=== PATIENT | female | born 1995 | race Caucasian/White ===

== ENCOUNTER 2016-09-18 10:35 | Inpatient (IN) | payer BC, OTHER ==
[~2016-09-18] VITALS: Ht 162.6 cm; Wt 49.9 kg
[~2016-09-18 10:35] MED LIST: BIOT25007 PO; Buspirone Hcl PO; FLUT16SP NS; HYDR50CA PO
[2016-09-20 14:00] VITALS: BP 100/52
[2016-09-20] MEDS ORDERED: ONDANSETRON 4 MG/2 ML VIAL IM PRN (14:00)
[2016-09-20] MEDS ORDERED: ACETAMINOPHEN 325 MG TABLET PO PRN (14:00)
[2016-09-20] MEDS ORDERED: IBUPROFEN 600 MG TABLET PO PRN (14:00)
[2016-09-20] MEDS ORDERED: MAG HYDROX/AL HYDROX/SIMETH 30 ML LIQUID UDC PO PRN (14:00)
[2016-09-20] MEDS ORDERED: BUPRENORPHINE HCL 2 MG TAB.SUBL SL PRN (14:00)
[2016-09-20] MEDS ORDERED: MIRALAX 17 GM POWD.PACK PO PRN (14:00)
[2016-09-20] MEDS ORDERED: LOPERAMIDE HCL 2 MG CAPSULE PO PRN ×2 (14:00)
[2016-09-20] MEDS ORDERED: diphenhydrAMINE 50 MG CAPSULE PO PRN (14:00)
[2016-09-20] MEDS ORDERED: MAGNESIUM HYDROXIDE 30 ML LIQUID UDC PO PRN (14:00)
[2016-09-20 14:56] LABS: *URINE HCG, QUAL NEGATIVE (NEGATIVE)
[2016-09-20 15:14] LABS: *AMPHETAMINE, URINE POSITIVE (NEGATIVE); *BARBITURATE, URINE NEGATIVE (NEGATIVE); *CANNABINOID, URINE NEGATIVE (NEGATIVE); *COCCAINE, URINE NEGATIVE (NEGATIVE); *OPIATE, URINE POSITIVE (NEGATIVE); *PHENCYCLIDINE SCREEN,URINE NEGATIVE (NEGATIVE)
--- NOTE | 2016-09-20 15:30 | NUR ---
Pt c/o body aches and withdrawal symptoms. Clonidine 0.1 mg po prn and Robaxin 750mg po prn given
[2016-09-20] MEDS: CLONIDINE HCL 0.1 MG TABLET PO PRN ×2 (15:33→23:48)
[2016-09-20] MEDS: METHOCARBAMOL 750 MG TABLET PO PRN ×2 (15:33→22:46)
--- NOTE | 2016-09-20 16:15 | NUR ---
ADMISSION NOTE: 21 yo female admitted with opiate and methamphetamine dependence. Pt is allergic to Tramadol. VS B/P 100/52 P 90 T 98.2 RR 16 Pulse OX 97% Initial COWS 5. Pt c/o body aches and anxiety. Pt is 5 ft 4inches and weighs 110 pounds. Skin is intact; however, healed scars noted on LFA and L buttock. Pt states had a seizure 5 weeks ago "which was random." Denies Benzo or ETOH abuse. Pt is alert and oriented X4. Color good, skin warm and dry. Respirations even and unlabored. Pt denies SI/HI. Pt has no home medications. Pt has a medical history of anxiety, depression and PTSD. Pt denies PCP. Dr. Orlando evaluated patient and placed on a 5 day Subutex taper to start at 1700. Substance use history: Heroin: 2-3 gms/day IV or smoked X 6 months. Last use 4gms 09-19-16 Meth: 1-2g/day smoked for 1 month. Last use today 1 gm.
--- NOTE | 2016-09-20 16:30 | NUR ---
Pt states feels improved after Clonidine and Robaxin prn. Muscle aches improved.
[2016-09-20] MEDS: BUPRENORPHINE HCL 2 MG TAB.SUBL SL SCH ×2 (16:46→21:15)
[2016-09-20] MEDS ORDERED: LORAZEPAM 2 MG/1 ML VIAL IM PRN (17:00)
[2016-09-20 17:39] VITALS: BP 110/60
[2016-09-20] MEDS ORDERED: TRAZODONE 50 MG TABLET PO PRN (18:15)
[2016-09-20] MEDS: busPIRone 10 MG TABLET PO SCH (18:27)
--- NOTE | 2016-09-20 18:51 | NUR ---
END OF SHIFT NOTE: Report given to industrial fabric cutter nurse. 21 yo female admitted with opiate and methamphetamine dependence. Placed on a 5 day Subutex taper. Pt states had a seizure 5 weeks ago "which was random." Denies Benzo or ETOH abuse. Pt is alert and oriented X4. Color good, skin warm and dry. Respirations even and unlabored. Vital signs have remained stable throughout shift. Last COWS 8 @ 1700. Clonidine 0.1 mg po prn and Robaxin 750mg po prn given @ 1530. Fall and seizure precautions observed. Call light within reach.
[2016-09-20 20:00] VITALS: BP 116/63
--- NOTE | 2016-09-20 20:00 | NUR ---
START OF SHIFT NOTE PATIENT IN HER ROOM, NOTED IRRITATED , UNABLE TO SIT STILL, AGITATED, RESTLESS, C/O ANXIETY, GENERALIZED BODY PAIN , SWEATING, NO N/V, STOMACH CRAMPS , STUFFY NOSE AND TREMORS. RELAXATION TECHNIQUE PROVIDED. REFUSED BLOOD DRAW , EXPLAINED RISKS/BENEFITS BUT STILL REFUSED. RECEIVED REPORT FROM DAY SHIFT NURSE, PATIENT IS A 21 YEAR OLD FEMALE, ADMITTED FOR HEROIN/METH DEPENDENCE. PATIENT IS ON 1ST DAY OF HER 5 DAYS SUBUTEX TAPER . PATIENT IS FULL CODE, REGULAR DIET AND ALLERGIC TO TRAMADOL. PATIENT REPORTS PMH OF ANXIETY, DEPRESSION, PTSD AND SEIZURE 5 WEEKS AGO. PATIENT WITH HEALED SCARS ON LEFT FOREARM AND LEFT BUTTOCK. PATIENT WAS GIVEN CLONIDINE AND ROBAXIN.LAST COWS 8. ON FALL/SEIZURE PRECAUTION. SAFETY MEASURES IN PLACE. CALL LIGHT IN REACH. WILL CONTINUE TO MONITOR.
[2016-09-20] MEDS ORDERED: LORAZEPAM 1 MG TABLET PO ONE (22:15)
--- NOTE | 2016-09-20 22:46 | NUR ---
ONE TIME ATIVAN/ROBAXIN ADMINISTRATION PATIENT RESTLESS, AGITATED, UNABLE TO SIT STILL, ANXIOUS, C/O OF GENERALIZED BODY ACHES /10, SWEATING AND TREMORS. ONE TIME ATIVAN/ROBAXIN GIVEN . WILL MONITOR FOR EFFECTIVENESS Addendum: 09/21/16 at 0406 by RAGINI HAWKINS LVN MOLLY 10
--- NOTE | 2016-09-20 23:46 | NUR ---
PRN ATIVAN/ROBAXIN RE-ASSESSMENT PATIENT STATES ATIVAN IS HELPFUL , STILL ANXIOUS BUT SHE FEELS MUCH BETTER. CIWA 4. ROBAXIN HELPFUL PAIN IS NOW 2/10. TOLERABLE. WILL CONTINUE TO MONITOR.
--- NOTE | 2016-09-20 23:48 | NUR ---
PRN CATAPRES AND DESYREL ADMINISTRATION PATIENT C/O ANXIETY , SWEATING AND REQUESTS FOR SLEEP AID. PRN CATAPRES AND DESYREL GIVEN. WILL CONTINUE TO MONITOR.
[2016-09-21] VITALS: BP 90/63
--- NOTE | 2016-09-21 00:48 | NUR ---
PRN CATAPRES/DESYREL RE-ASSESSMENT PATIENT IN BED WITH EYES CLOSED. RESPIRATION EVEN AND UNLABORED. NO S/S OF DISTRESS. SAFETY MEASURES IN PLACE. CALL LIGHT IN REACH. WILL CONTINUE TO MONITOR.
--- NOTE | 2016-09-21 04:00 | NUR ---
COWS /VS PATIENT REFUSED VS. UNABLE TO COMPLETE COWS ASSESSMENT . RESPIRATION EVEN AND UNLABORED. SAFETY MEASURES IN PLACE. CALL LIGHT IN REACH. WILL CONTINUE TO MONITOR.
--- NOTE | 2016-09-21 07:27 | NUR ---
Start of Shift Notes: Received patient in her room. Alert and oriented x 4. Verbally responsive. Able to make needs known. Respirations even and unlabored. No SOB noted. Skin warm and dry to touch. Abdomen soft and non-distended with (+) BS in all 4 quadrants. No complains of N/V/D or constipation noted. No complains of abdominal discomfort. Bladder non-distended. No complains of dysuria. Ambulatory ad stephen with steady gait. Voids independently. Patient is a 21 year old female admitted for opiate and methamphetamine dependence who was placed on a 5-day Subutex taper as ordered. No adverse reactions noted. Allergic to Tramadol. FULL CODE. Regular diet. On fall and seizure precautions. Has past medical hx of anxiety, depression, and PTSD. Educated patient on her current plan of care for the day and her medication regimen. Encouraged oral fluid intake and encouraged group participation to learn new skills to prevent relapse. Will continue to monitor.
--- NOTE | 2016-09-21 07:30 | NUR ---
END OF SHIFT NOTE PATIENT COMPLIANT WITH MEDICATION AND TREATMENT PLAN . PATIENT SLEPT 11 HOURS . FLUID INTAKE OF 729 ML . VOIDED X 1. NO BM . PATIENT WAS ANXIOUS AT THE BEGINNING OF SHIFT. PATIENT RESTLESS, IRRITABLE, AGITATED AND GENERALIZED BODY PAIN 5/10. ONE TIME ATIVAN WAS ORDERED BY DR. ESCOBEDO, GIVEN AT 2246 . CIWA 10. EFFECTIVE. PATIENT REQUESTS FOR SLEEP AID AT 2348 AND CATAPRES FOR ANXIETY AT 2348. EFFECTIVE. ON FALL PRECAUTION. SAFETY MEASURES IN PLACE. CALL LIGHT IN REACH. WILL CONTINUE TO MONITOR. LAST COWS 1.
[2016-09-21 08:00] VITALS: BP 101/71
[2016-09-21] MEDS ORDERED: TUBERCULIN,PURIF.PROT.DERIV. 5 TU/0.1 ML TEST ID ONE (09:00)
[2016-09-21] MEDS: BUPRENORPHINE HCL 2 MG TAB.SUBL SL SCH ×3 (09:06→20:24)
[2016-09-21] MEDS: MULTIVITAMINS,THERAPEUTIC TABLET PO SCH (09:06)
[2016-09-21] MEDS: GABAPENTIN 300 MG CAPSULE PO SCH ×2 (09:06→14:37)
[2016-09-21] MEDS: busPIRone 10 MG TABLET PO SCH ×3 (09:06→16:00)
[2016-09-21 09:34] LABS: ETHANOL < 3 MG/DL (0-0)
[2016-09-21 09:37] LABS: ALANINE AMINOTRANSFERASE 22 U/L (14-59); ALBUMIN 3.3 g/dL (3.4-5.0); ALKALINE PHOSPHATASE 53 U/L (50-136); ASPARTATE AMINOTRANSFERASE 19 U/L (15-37); BILIRUBIN,TOTAL 0.3 mg/dL (0.2-1.0); CALCIUM 8.4 mg/dL (8.5-10.1); CARBON DIOXIDE 29 mmol/L (21-32); CHLORIDE 105 mmol/L (98-107); CREATININE 0.7 mg/dL (0.6-1.3); GFR 105 mL/min (>60); GLUCOSE 100 mg/dL (74-106); MAGNESIUM 1.7 mg/dL (1.8-2.4); POTASSIUM 3.9 mmol/L (3.5-5.1); SODIUM SERUM 137 mmol/L (136-145); TOTAL PROTEIN, SERUM 6.2 g/dL (6.4-8.2); UREA NITROGEN, BLOOD 4 mg/dL (7-18)
[2016-09-21] MEDS ORDERED: TRAZODONE 50 MG TABLET PO PRN (09:45)
[2016-09-21 09:48] LABS: THYROID STIMULATING HORMONE 0.419 mIU/mL (0.358-3.740)
[2016-09-21 09:55] LABS: HIV-1 p24 ANTIGEN NON REACTIVE (NONREACTIVE); HIV-1/2 ANTIBODY NON REACTIVE (NONREACTIVE)
[2016-09-21 10:00] LABS: BASOPHILS % (AUTO) 0.6 % (0.0-2.0); EOSINOPHILS # (AUTO) 0.2 K/uL (0.0-0.7); HEMATOCRIT 39.7 % (37.0-47.0); HEMOGLOBIN 13.5 g/dL (12.0-16.0); LYMPHOCYTES # (AUTO) 2.2 K/uL (0.8-4.8); LYMPHOCYTES % (AUTO) 36.6 % (20.5-51.5); MEAN CORPUSCULAR HEMOGLOBIN 30.3 uug (27.0-31.0); MEAN CORPUSCULAR HGB CONC 34 g/dL (32.0-37.0); MEAN CORPUSCULAR VOLUME 89.5 fL (81.0-99.0); MONOCYTES # (AUTO) 0.7 K/uL (0.1-1.30); MONOCYTES % (AUTO) 11.2 % (0.0-11.0); NEUTROPHILS # (AUTO) 2.9 K/uL (1.8-8.9); NEUTROPHILS % (AUTO) 48.6 % (38.5-71.5); PLATELET COUNT (AUTO) 213 K/uL (150-450); RED BLOOD CELL COUNT(AUTO) 4.44 MIL/uL (4.20-5.40); RED CELL DISTRIBUTION WIDTH 12.4 % (11.5-14.5)
--- NOTE | 2016-09-21 10:00 | NUR ---
MD Communication: Reported to MD Orlando, patient noted with complain of dysuria. No signs of hematuria reported. New order obtained from MD for UA. Orders noted and carried out.
[2016-09-21] MEDS ORDERED: MAGNESIUM OXIDE 400 MG TABLET PO ONE (10:15)
[2016-09-21] MEDS: ONDANSETRON ODT 4 MG TAB.RAPDIS SL PRN ×2 (11:02→18:31)
[2016-09-21] MEDS: DICYCLOMINE HCL 20 MG TABLET PO PRN ×2 (11:02→20:23)
--- NOTE | 2016-09-21 11:03 | NUR ---
PRN Zofran/Immodium and Bentyl given: Patient noted with complain of nausea, abdominal cramps, and x 2 episodes of loose watery stools. Medicated patient with PRN Zofran 4 mg ODT, Imodium 4 mg and Bentyl 20 mg PO as ordered. Will monitor for effectiveness.
[2016-09-21 12:00] VITALS: BP 98/58
--- NOTE | 2016-09-21 12:02 | NUR ---
Re-assessment: Per patient, no further episodes of nausea and diarrhea noted. Mild abdominal cramps noted. PRN Bentyl, Zofran and Immodium was effective.
[2016-09-21 12:49] LABS: *BLOOD, URINE NEGATIVE (NEGATIVE); *CLARITY,URINE SLIGHTLY CLOUDY (CLEAR); *COLOR,URINE YELLOW (YELLOW); *KETONES,URINE TRACE (NEGATIVE); LEUKOCYTE ESTERASE ,URINE 1+ (NEGATIVE); NITRITE, URINE NEGATIVE (NEGATIVE); UGLUCOSE NEGATIVE (NEGATIVE)
[2016-09-21 13:09] LABS: *BILIRUBIN,URIN 1+ (NEGATIVE); *PROTEIN,URINE TRACE (NEGATIVE)
--- NOTE | 2016-09-21 13:09 | NUR ---
Critical lab: Received call from lab about patient's urine. Spoke with Kg and reported critical lab value of 1+ bilirubin in the urine. Dr. Orlando made aware.
[2016-09-21 13:10] LABS: BACTERIA,URINE FEW /HPF (NONE SEEN); SQUAMOUS EPITHELIAL CELL,UR MODERATE /HPF (NONE SEEN); WBC,URINE 20-50 /HPF (0-3)
[2016-09-21 13:11] LABS: CALCIUM OXALATE CRYSTALS,UR FEW /HPF (NONE SEEN); MUCUS,URINE MODERATE /LPF (0-FEW)
[2016-09-21 13:12] LABS: ICTOTEST POSITIVE (NEGATIVE)
[2016-09-21] MEDS: NITROFURANTOIN/NITROFURAN MAC 100 MG CAPSULE PO SCH ×2 (14:37→20:23)
[2016-09-21] MEDS: CLONIDINE HCL 0.1 MG TABLET PO PRN (14:50)
--- NOTE | 2016-09-21 14:51 | NUR ---
New orders: Patient started on Macrobid 100 mg PO q 12 hours for UTI. Patient education provided. Patient verbalized understanding.
--- NOTE | 2016-09-21 14:51 | NUR ---
Clonidine 0.1mg PO given: patient complained of chills, anxiety, hot flashes. Unable to be relieved with redirection. Medicated patient with Clonidine 0.1mg PO as ordered. Will monitor for effectiveness.
--- NOTE | 2016-09-21 15:51 | NUR ---
Re-assessment: Per patient, PRN Clonidine was effective in reducing patient's anxiety, chills, hot flashes and agitation.
[2016-09-21 16:00] VITALS: BP 95/73
--- NOTE | 2016-09-21 18:31 | NUR ---
PRN Zofran 4 mg ODT given: Patient noted with complain of nausea. No emesis noted. Patient was given Zofran 4 mg ODT as ordered. Will monitor for effectiveness.
--- NOTE | 2016-09-21 18:47 | NUR ---
End of Shift Notes: Patient is a 21 year old female admitted for opiate and methamphetamine dependence who was placed on a 5-day Subutex taper as ordered. No adverse reactions noted. Patient is tolerating taper well. Prior to admission, patient was using 2 to 3 grams of Heroin IV and methamphetamine 1-2 grams IV x 6 months. VS monitored closely q 4 hours. No significant abnormalities noted. Withdrawal symptoms were closely monitored. Patient presented with with chills, hot flashes, abdominal spasms, diarrhea, abdominal discomfort, nausea, anxiety and agitation. Initial COWS 8, Last COWS 3. Medicated patient with Zofran 4 mg, Imodium 4 mg and Bentyl 20 mg PO as ordered at 1103 with help after 1 hour. Medicated patient with Clonidine 0.1mg PO at 1450 due to anxiety, agitation and chills with help after 1 hour. Zofran 4 mg ODT given at 1830 due to nausea. Patient complained of bladder discomfort. Notified Dr. Orlando with NO for UA. Started on Macrobid as ordered. No adverse reactions noted. Mag 1.7L. Replaced with 400 mg of Max Ox as ordered. Per patient, Subutex has been helping her with er withdrawal symptoms. Compliant with care and treatment. Requires encouragement to attend group and activities. All needs met and attended. Will continue to monitor closely.
[2016-09-21 20:00] VITALS: BP 109/60
--- NOTE | 2016-09-21 20:00 | NUR ---
START OF SHIFT NOTE PATIENT IN THE ROOM.PATIENT REPORTS ANXIETY, IRRITABLE, RESTLESS, STILL C/O NAUSEA NO EMESIS, ABDOMINAL CRAMPING AND GENERALIZED BODY PAIN /10. PATIENT ALERT AND ORIENTED X 4. RESPIRATION EVEN AND UNLABORED. PATIENT IS A 21 YEAR OLD FEMALE, ADMITTED FOR HEROIN/METH DEPENDENCE. PATIENT IS FULL CODE, REGULAR DIET AND ALLERGIC TO TRAMADOL. PATIENT REPORTS PMH OF ANXIETY, DEPRESSION, PTSD AND SEIZURE 5 WEEKS AGO. PATIENT IS ON 2ND DAY OF HER 5 DAY SUBUTEX TAPER. RECEIVED REPORT FROM DAY SHIFT NURSE, PATIENT WAS GIVEN ZOFRAN, IMODIUM, BENTYL AND CLONIDINE. PATIENT HAS UTI AND ON NITROFURANTOIN ANTIBIOTIC. MAGNESIUM LEVEL 1.7- REPLACED. ON FALL/SEIZURE PRECAUTION. SAFETY MEASURES IN PLACE. CALL LIGHT IN REACH. WILL CONTINUE TO MONITOR.
[2016-09-21] MEDS: METHOCARBAMOL 750 MG TABLET PO PRN (20:23)
[2016-09-21] MEDS: HYDROXYZINE PAMOATE 25 MG CAPSULE PO PRN (20:23)
--- NOTE | 2016-09-21 20:23 | NUR ---
PRN VISTARIL/ROBAXIN /BENTYL ADMINISTRATION PATIENT ANXIOUS, C/O GENERALIZED BODY ACHES AND ABDOMINAL CRAMPING. PRN VISTARIL, ROBAXIN AND BENTYL GIVEN WILL MONITOR EFFECTIVENESS.
[2016-09-21] MEDS: TRAZODONE 100 MG TABLET PO PRN (20:49)
--- NOTE | 2016-09-21 20:49 | NUR ---
PRN DESYREL ADMINISTRATION PATIENT REQUESTS FOR SLEEP AID. PRN DESYREL GIVEN .WILL MONITOR FOR EFFECTIVENESS.
[2016-09-21] MEDS ORDERED: GABAPENTIN 300 MG CAPSULE PO SCH (21:00)
--- NOTE | 2016-09-21 21:23 | NUR ---
PRN VISTARIL/BENTYL/ROBAXIN PATIENT STATES PAIN LEVEL IS NOW 3/10, PATIENT'S ANXIETY SUBSIDED AND ABDOMINAL CRAMPING AND NAUSEA CEASED. WILL CONTINUE TO MONITOR
--- NOTE | 2016-09-21 22:23 | NUR ---
PRN DESYREL RE-ASSESSMENT PATIENT IN BED WITH EYES CLOSED, ASLEEP. RESPIRATION EVEN AND UNLABORED. SAFETY MEASURES IN PLACE CALL LIGHT IN REACH. WILL CONTINUE TO MONITOR
[2016-09-22] VITALS: BP 90/56
[2016-09-22 04:00] VITALS: BP 90/52
[2016-09-22 05:10] LABS: HCV AB 0.1 s/co ratio (0.0-0.9); HEPATITIS B CORE AB, IgM Negative (Negative); HEPATITIS B SURFACE AG Negative (Negative)
--- NOTE | 2016-09-22 06:58 | NUR ---
END OF SHIFT NOTE PATIENT REPORTS ANXIETY, IRRITABLE, RESTLESS, STILL C/O SLIGHT NAUSEA NO EMESIS, ABDOMINAL CRAMPING AND GENERALIZED BODY PAIN /10 DURING SHIFT. PATIENT ALERT AND ORIENTED X 4. RESPIRATION EVEN AND UNLABORED. PATIENT WAS GIVEN PRN VISTARIL FOR ANXIETY , ROBAXIN FOR GENERALIZED BODY ACHE 7/10, AND BENTYL FOR ABDOMINAL CRAMPING AT 2022 THEN PATIENT REQUESTS FOR SLEEP AID AT 2048. PATIENT HAS UTI AND ON NITROFURANTOIN ANTIBIOTIC, WITH NO ADVERSE EFFECT NOTED. FLUIDS ENCOURAGED . MAGNESIUM LEVEL IS 1.7- REPLACED DURING THE DAY. PATIENT COMPLIANT WITH MEDICATION AND TREATMENT PLAN. ON FALL/SEIZURE PRECAUTION. SAFETY MEASURES IN PLACE. CALL LIGHT IN REACH. WILL CONTINUE TO MONITOR. SLEPT 7 HOURS . FLUID INTAKE 973 ML. VOIDED X 1. NO BM. LAST COWS 1.
--- NOTE | 2016-09-22 07:00 | NUR ---
Start of Shift Notes: Received patient in her room. Alert and oriented x 4. Verbally responsive. Able to make needs known. Respirations even and unlabored. No SOB noted. Skin warm and dry to touch. Abdomen soft and non-distended with (+) BS in all 4 quadrants. No complains of N/V/D or constipation noted. No complains of abdominal discomfort. Bladder non-distended. No complains of dysuria. On Marcrobid as ordered for UTI. No adverse reactions noted. Ambulatory ad stephen with steady gait. Voids independently. Patient is a 21 year old female admitted for opiate and methamphetamine dependence who was placed on a 5-day Subutex taper as ordered. No adverse reactions noted. Allergic to Tramadol. FULL CODE. Regular diet. On fall and seizure precautions. Has past medical hx of anxiety, depression, and PTSD. Educated patient on her current plan of care for the day and her medication regimen. Encouraged oral fluid intake and encouraged group participation to learn new skills to prevent relapse. Will continue to monitor.
[2016-09-22 07:45] LABS: BASOPHILS % (AUTO) 0.4 % (0.0-2.0); EOSINOPHILS # (AUTO) 0.2 K/uL (0.0-0.7); EOSINOPHILS % (AUTO) 2.1 % (0.0-7.0); HEMATOCRIT 38.5 % (37.0-47.0); LYMPHOCYTES # (AUTO) 3.8 K/uL (0.8-4.8); LYMPHOCYTES % (AUTO) 49.3 % (20.5-51.5); MEAN CORPUSCULAR HEMOGLOBIN 30.4 uug (27.0-31.0); MEAN CORPUSCULAR HGB CONC 34 g/dL (32.0-37.0); MEAN CORPUSCULAR VOLUME 89.8 fL (81.0-99.0); MONOCYTES # (AUTO) 0.7 K/uL (0.1-1.30); NEUTROPHILS # (AUTO) 3.1 K/uL (1.8-8.9); NEUTROPHILS % (AUTO) 39.2 % (38.5-71.5); PLATELET COUNT (AUTO) 189 K/uL (150-450); RED BLOOD CELL COUNT(AUTO) 4.29 MIL/uL (4.20-5.40); RED CELL DISTRIBUTION WIDTH 12.7 % (11.5-14.5); WHITE BLOOD COUNT (AUTO) 7.8 K/uL (4.0-11.2)
[2016-09-22 08:00] VITALS: BP 96/63
[2016-09-22 08:07] LABS: CALCIUM 8.5 mg/dL (8.5-10.1); CREATININE 0.8 mg/dL (0.6-1.3); MAGNESIUM 1.8 mg/dL (1.8-2.4); PHOSPHOROUS 3.5 mg/dL (2.5-4.9); POTASSIUM 4.1 mmol/L (3.5-5.1)
[2016-09-22] MEDS ORDERED: BUPRENORPHINE HCL 2 MG TAB.SUBL SL SCH (09:00)
[2016-09-22] MEDS ORDERED: GABAPENTIN 300 MG CAPSULE PO SCH (09:00)
[2016-09-22] MEDS: NITROFURANTOIN/NITROFURAN MAC 100 MG CAPSULE PO SCH ×2 (09:49→21:49)
[2016-09-22] MEDS: busPIRone 10 MG TABLET PO SCH ×3 (09:49→16:51)
[2016-09-22] MEDS: METHOCARBAMOL 750 MG TABLET PO PRN (09:50)
[2016-09-22] MEDS: MULTIVITAMINS,THERAPEUTIC TABLET PO SCH (09:50)
[2016-09-22] MEDS: FLUTICASONE PROP NASAL SPRAY 16 GM BOTTLE NS SCH (09:50)
[2016-09-22] MEDS: CLONIDINE HCL 0.1 MG TABLET PO PRN (09:50)
[2016-09-22] MEDS: HYDROXYZINE PAMOATE 25 MG CAPSULE PO PRN (09:50)
[2016-09-22] MEDS: DICYCLOMINE HCL 20 MG TABLET PO PRN (09:51)
[2016-09-22] MEDS: ONDANSETRON ODT 4 MG TAB.RAPDIS SL PRN (09:51)
--- NOTE | 2016-09-22 09:53 | NUR ---
Zofran 4 mg ODT/Bentyl 20mg/Robaxin 750mg/Clonidine 0.1mg PO given: Patient noted with complain of nausea. No emesis noted. Noted with abdominal cramps. No diarrhea noted. Noted with complain of 5/10 generalized muscle aches and pains.. Also noted with chills, hot flashes and mild sweating. Medicated patient with the above meds. Will monitor for effectiveness.
--- NOTE | 2016-09-22 10:53 | NUR ---
Re-assessment: Per patient, PRN Zofran was effective in relieving nausea, PRN Clonidine, Vistaril, Robaxin was effective in reducing patient's anxiety, chills, hot flashes, stomach cramps and muscle aches and pains.
--- NOTE | 2016-09-22 11:09 | NUR ---
Drug Use Hx: Patient revealed that she is also taking Xanax 4 mg PO x 1 month prior to admission. Dr. Orlando aware and will be started on a modified 3-day Ativan taper. Orders noted and carried out. Patient was informed. Education provided.
[2016-09-22] MEDS ORDERED: DICYCLOMINE HCL 20 MG TABLET PO ONE (11:15)
[2016-09-22] MEDS ORDERED: PHENAZOPYRIDINE HCL 100 MG TABLET PO ONE (11:15)
[2016-09-22] MEDS ORDERED: PROCHLORPERAZINE EDISYLATE 10 MG/2 ML VIAL IM PRN (11:15)
[2016-09-22] MEDS: LORAZEPAM 1 MG TABLET PO SCH ×2 (11:27→21:48)
[2016-09-22 12:00] VITALS: BP 94/52
[2016-09-22] MEDS: GABAPENTIN 300 MG CAPSULE PO SCH ×2 (14:47→21:49)
[2016-09-22] MEDS: PHENAZOPYRIDINE HCL 100 MG TABLET PO SCH ×2 (14:47→21:49)
[2016-09-22] MEDS: BUPRENORPHINE HCL 2 MG TAB.SUBL SL SCH ×2 (14:48→21:49)
[2016-09-22] MEDS: DICYCLOMINE HCL 20 MG TABLET PO SCH ×2 (14:48→21:49)
[2016-09-22] MEDS ORDERED: LORAZEPAM 1 MG TABLET PO SCH (15:00)
[2016-09-22 16:00] VITALS: BP 111/64
--- NOTE | 2016-09-22 18:51 | NUR ---
End of Shift Notes: Patient is a 21 year old female admitted for opiate and methamphetamine dependence who was placed on a 5-day Subutex taper and a modified 3-day Ativan taper as ordered. No adverse reactions noted. Patient is tolerating taper well. Prior to admission, patient was using 2 to 3 grams of Heroin IV, 4 mg of Xanax x 1 month and methamphetamine 1-2 grams IV x 6 months. VS monitored closely q 4 hours. No significant abnormalities noted. Withdrawal symptoms were closely monitored. Patient presented with with chills, hot flashes, abdominal spasms, , abdominal discomfort, nausea, anxiety and agitation. Initial COWS 8/CIWA 7. , Last COWS 3, CIWA 3. Medicated patient with Zofran 4 mg, Clonidine, Vistaril and Bentyl 20 mg PO as ordered at 0953 with help after 1 hour. Initial dose of 3-day Ativan taper started at 1100. Started on Pyridium as ordered for UTI. Continues to be on Macrobid as ordered. No adverse reactions noted. Oral fluids encouraged. Per patient, Subutex and Ativan has been helping her with her withdrawal symptoms. Compliant with care and treatment. Requires encouragement to attend group and activities. All needs met and attended. Will continue to monitor closely.
--- NOTE | 2016-09-22 19:15 | NUR ---
START OF SHIFT Received 21 year old female patient admitted on 09/19/16 for Xanax, Heroin and Methamphetamine dependency. Pt is full code with allergy to Tramadol. Pt reports PMHx of anxiety, depression and PTSD. Pt reports using Heroin 2-3 gram IV or smoke inhalation daily for 6 months. Last dose was 4 grams on 09/19/16. Pt placed on 5 day Subutex taper started on 09/20/16 and 3 day Ativan taper started on 09/22/16, pt is tolerating well. Per endorsement pt received PRN clonidine, Robaxin, Vistaril and Bentyl. Pt is alert and oriented x4, breathing is even and unlabored, safety measures in place. Will continue to monitor.
[2016-09-22 20:00] VITALS: BP 102/63
[2016-09-23] VITALS: BP 118/73
[2016-09-23] MEDS: TRAZODONE 100 MG TABLET PO PRN ×2 (00:39→22:20)
[2016-09-23] MEDS: CLONIDINE HCL 0.1 MG TABLET PO PRN (00:47)
--- NOTE | 2016-09-23 00:47 | NUR ---
PRN TRAZODONE/CLONIDINE Pt complains of anxiety and inability to sleep. PRN Trazodone and Clonidine administered as ordered. Breathing is even and unlabored, safety measures in place. Will continue to monitor effectiveness of medications.
--- NOTE | 2016-09-23 01:47 | NUR ---
PRN TRAZODONE/CLONIDINE REASSESSMENT PRN medications effective. Pt lying calmly in bed with eyes closed noted to be asleep. No s/s of facial grimacing. Respirations 16, breathing is even and unlabored, safety measures in place. Will continue to monitor.
[2016-09-23 04:00] VITALS: BP 101/59
--- NOTE | 2016-09-23 04:00 | NUR ---
COWS/CIWA DEFERRED COWS/CIWA deferred d/t order is Q4H while awake. Pt lying in bed with eyes closed noted to be asleep. Respirations 16, breathing is even and unlabored, safety measures in place. Will continue to monitor.
--- NOTE | 2016-09-23 07:13 | NUR ---
END OF SHIFT Pt remained stable and had uneventful night. She received PRN medications of Trazodone and Clonidine d/t inability to fall asleep and complaints of anxiety. PRN medications effective. She slept a total of 5 hrs, Intake:300mL Void:x4 BM:0 COWS:4, CIWA: 4 at 0000. Pt remains alert and oriented x4, breathing is even and unlabored, safety measures in place. Will endorse to oncoming nurse.
--- NOTE | 2016-09-23 07:15 | NUR ---
Start of shift Received report from semiconductor wafers etcher stripper. Pt is a 21 year old female admitted n 09/19/16 for Xanax, Heroin, and methamphetamine dependency. Pt is full code regular diet on fall and seizure precautions reports being allergic to Tramadol. PMH of anxiety, depression, and PTSD. Pt continues 5 day Subutex and 3 day Ativan tapers tolerating well. Skin intact. Pt received PRN Clonidine and trazodone last night for anxiety and insomnia, medications were effective per semiconductor wafers etcher stripper RN. Pt slept a total of 5 hours last night Her last CIWA was a 4 and her last COWS was a 4 taken at 0000. All safety measures in place will continue to monitor and provide support.
[2016-09-23 08:00] VITALS: BP 103/62
[2016-09-23] MEDS: FLUTICASONE PROP NASAL SPRAY 16 GM BOTTLE NS SCH (09:46)
[2016-09-23] MEDS: MULTIVITAMINS,THERAPEUTIC TABLET PO SCH (09:47)
[2016-09-23] MEDS: GABAPENTIN 300 MG CAPSULE PO SCH ×3 (09:47→21:49)
[2016-09-23] MEDS: busPIRone 10 MG TABLET PO SCH ×3 (09:47→16:48)
[2016-09-23] MEDS: DICYCLOMINE HCL 20 MG TABLET PO SCH ×3 (09:48→21:48)
[2016-09-23] MEDS: BUPRENORPHINE HCL 2 MG TAB.SUBL SL SCH ×3 (09:49→21:51)
[2016-09-23] MEDS: LORAZEPAM 1 MG TABLET PO SCH ×3 (09:49→21:48)
[2016-09-23] MEDS: NITROFURANTOIN/NITROFURAN MAC 100 MG CAPSULE PO SCH ×2 (09:49→21:49)
[2016-09-23] MEDS: PHENAZOPYRIDINE HCL 100 MG TABLET PO SCH ×3 (09:50→21:51)
[2016-09-23 12:00] VITALS: BP 120/77
[2016-09-23] MEDS: DOCUSATE SODIUM 250 MG CAPSULE PO SCH (15:00)
[2016-09-23] MEDS: CLONIDINE HCL 0.1 MG TABLET PO SCH ×2 (15:46→21:49)
[2016-09-23 16:00] VITALS: BP 130/78
--- NOTE | 2016-09-23 19:00 | NUR ---
End Of Shift Report given to mold shifter. Pt is a 21 year old female. Xanax, Heroin, and methamphetamine dependency, full code regular diet on fall and seizure precautions reports being allergic to Tramadol. Skin intact. Pt remained in her room thorough the day she participated in some groups and activities. Pt continues her 5 day Subutex and 3 day Ativan tapers tolerating well. Pt presented with sweats, agitation, anxiety and fatigue, she received all of her scheduled medications. Pt reported improvement in controlling her symptoms evidenced by her last CIWA was a which was a 4 and her COWS which was a 4 taken at 1600. Pt ate most of her meals. Pt did not receive not request any PRN medications during the day shift. Pt A&Ox4, denies any N/V/D her total fluid intake was 2500 she voided 6 times and did not have any bowel movements. All safety measures in place, bed locked in lowest position.
--- NOTE | 2016-09-23 19:15 | NUR ---
START OF SHIFT Received 21 year old female patient admitted on 09/19/16 for Xanax, Heroin and Methamphetamine dependency. Pt is full code with allergy to Tramadol. Pt continues on 5 day Subutex taper started on 09/20/16 and 3 day Ativan taper started on 09/22/16 and is tolerating well. Per endorsement pt did not receive or request PRN medications. Pt is alert and oriented x4, breathing is even and unlabored, safety measures in place. Will continue to monitor.
[2016-09-23 20:00] VITALS: BP 116/63
--- NOTE | 2016-09-23 22:23 | NUR ---
PRN TRAZODONE/MYLANTA Pt complains of heartburn and inability to sleep. PRN Trazodone and Mylanta administered as ordered. Breathing is even and unlabored, safety measures in place. Will continue to monitor effectiveness of medications.
--- NOTE | 2016-09-23 23:15 | NUR ---
PRN TRAZODONE/MYLANTA REASSESSMENT PRN Mylanta effective, pt reports relief from heartburn. PRN Trazodone somewhat effective. Pt appears drowsy lying in bed and reports she is ready to sleep. Breathing is even and unlabored, respirations 16, safety measures in place. Will continue to monitor.
[2016-09-24] VITALS: BP 96/53
[2016-09-24 04:00] VITALS: BP 94/58
--- NOTE | 2016-09-24 07:00 | NUR ---
END OF SHIFT Pt is alert and oriented x4. She complained of nausea and generalized body aches. She reports that taper is effective in reducing withdrawal symptoms. At 2223 she received PRN Trazodone and Mylanta d/t inability to sleep and complaints of heartburn PRN medications were effective. She slept a total of 5 hrs, Intake:750mL Void: x4, BM:0 COWS:4, CIWA: 4 and 2000. Breathing is even and unlabored, respirations 16. Pt is safe with bed locked in locked in lowest position, side rails up x2 and call light within reach. Will endorse to oncoming nurse.
--- NOTE | 2016-09-24 07:20 | NUR ---
Start of shift Received report from night time nanny. Pt is a 21 year old female admitted n 09/19/16 for Xanax, Heroin, and methamphetamine dependency. Pt is full code regular diet on fall and seizure precautions reports being allergic to Tramadol. PMH of anxiety, depression, and PTSD. Pt continues 5 day Subutex and 3 day Ativan tapers tolerating well. Skin intact. Pt received PRN Mylanta and trazodone last night for anxiety, medications were effective per night time nanny RN. Pt slept a total of 5 hours last night Her last CIWA was a 4 and her last COWS was a 4 taken at 0000. All safety measures in place will continue to monitor and provide support.
[2016-09-24 08:00] VITALS: BP 100/68
[2016-09-24] MEDS: MULTIVITAMINS,THERAPEUTIC TABLET PO SCH (08:59)
[2016-09-24] MEDS: DOCUSATE SODIUM 250 MG CAPSULE PO SCH (08:59)
[2016-09-24] MEDS: GABAPENTIN 300 MG CAPSULE PO SCH ×3 (08:59→21:24)
[2016-09-24] MEDS: DICYCLOMINE HCL 20 MG TABLET PO SCH ×3 (08:59→21:26)
[2016-09-24] MEDS: NITROFURANTOIN/NITROFURAN MAC 100 MG CAPSULE PO SCH ×2 (09:00→21:25)
[2016-09-24] MEDS: busPIRone 10 MG TABLET PO SCH ×3 (09:00→17:00)
[2016-09-24] MEDS: CLONIDINE HCL 0.1 MG TABLET PO SCH ×3 (09:00→21:25)
[2016-09-24] MEDS ORDERED: BUPRENORPHINE HCL 2 MG TAB.SUBL SL SCH (09:00)
[2016-09-24] MEDS: FLUTICASONE PROP NASAL SPRAY 16 GM BOTTLE NS SCH (09:00)
[2016-09-24] MEDS ORDERED: LORAZEPAM 1 MG TABLET PO SCH (09:00)
[2016-09-24] MEDS: PHENAZOPYRIDINE HCL 100 MG TABLET PO SCH (09:01)
[2016-09-24 12:00] VITALS: BP 91/59
[2016-09-24] MEDS ORDERED: NAPHAZOLINE/PHENIR OPHT DROP 15 ML BOTTLE EACHEYE PRN (12:00)
[2016-09-24] MEDS ORDERED: CLON0.1T14 PO (13:35)
[2016-09-24] MEDS ORDERED: NITR100C11 PO (13:35)
[2016-09-24] MEDS ORDERED: Gabapentin PO ×2 (13:35)
[2016-09-24] MEDS ORDERED: Trazodone Hcl PO (13:35)
[2016-09-24] MEDS ORDERED: METH-33 PO (13:35)
[2016-09-24] MEDS ORDERED: Ibuprofen PO (13:35)
[2016-09-24] MEDS ORDERED: DICY20TA28 PO (13:35)
[2016-09-24] MEDS ORDERED: HYDR-3895 PO (13:35)
[2016-09-24] MEDS ORDERED: Buspirone Hcl PO (13:35)
[2016-09-24 16:00] VITALS: BP 111/69
[2016-09-24] MEDS: HYDROXYZINE PAMOATE 25 MG CAPSULE PO PRN (18:35)
[2016-09-24 19:01] LABS: *AMPHETAMINE, URINE NEGATIVE (NEGATIVE); *BARBITURATE, URINE NEGATIVE (NEGATIVE); *CANNABINOID, URINE NEGATIVE (NEGATIVE); *COCCAINE, URINE NEGATIVE (NEGATIVE); *OPIATE, URINE NEGATIVE (NEGATIVE); *PHENCYCLIDINE SCREEN,URINE NEGATIVE (NEGATIVE)
--- NOTE | 2016-09-24 19:01 | NUR ---
End Of Shift Report given to shift production associate. Pt is a 21 year old female. Xanax, Heroin, and methamphetamine dependency, full code regular diet on fall and seizure precautions reports being allergic to Tramadol. Skin intact. Pt remained in her room thorough the day she participated in some groups and activities. Pt completed her 5 day Subutex and 3 day Ativan tapers and is to be discharged tomorrow. Pt presented with, anxiety and fatigue, she received all of her scheduled medications. Pt reported improvement in controlling her symptoms evidenced by her last CIWA was a which was a 4 and her COWS which was a 4 taken at 1600. Pt ate most of her meals. Pt received PRN Vistaril 25mg at 1835 for anxiety. Pt A&Ox4, denies any N/V/D her total fluid intake was 2150 she voided 10 times and did not have any bowel movements. All safety measures in place, bed locked in lowest position.
[2016-09-24 20:00] VITALS: BP 117/73
--- NOTE | 2016-09-24 20:00 | NUR ---
Start of Shift Pt is a 21 year old female admitted on 09/19/2016 for Heroin, Methamphetamine and Xanax dependence, placed on 5 day Subutex taper and 3 day Ativan taper, completed. Pt is scheduled for discharge tomorrow. Pt is allergic to tramadol, fall/seizure precautions - last seizure 5 weeks ago as reported per pt, regular diet and full code. PMH: Anxiety, depression and PTSD. Upon assessment, pt is anxiety, face flushed, skin noted to be clammy, reports muscle aches, respirations unlabored, denies SOB/chest pain, denies n/v/d, bowel sounds active x4, abdomen soft. Safety measures in place, call light within reach, side rails up x2, bed locked and in low position. Will continue to monitor.
[2016-09-25] VITALS: BP 103/55
--- NOTE | 2016-09-25 | NUR ---
Vital Signs BP 103/55, pulse 78, respirations 16, SpO2 98%, temp 98, no reports of pain 0/10. COWS/CIWA assessment deferred d/t pt sleeping, to assess while pt is awake as ordered. Safety measures in place, Will continue to monitor.
[2016-09-25] MEDS: TRAZODONE 100 MG TABLET PO PRN (00:03)
[2016-09-25 04:00] VITALS: BP 93/58
--- NOTE | 2016-09-25 04:00 | NUR ---
Vital Signs BP 93/58, pulse 65, respirations 16, SpO2 97%, temp 97.9, no reports of pain 0/10. COWS/CIWA assessment deferred d/t pt sleeping, to assess while pt is awake as ordered. Safety measures in place, Will continue to monitor.
--- NOTE | 2016-09-25 07:00 | NUR ---
End of Shift Pt is a 21 year old female admitted on 09/19/2016 for Heroin, Methamphetamine and Xanax dependence, placed on 5 day Subutex taper and 3 day Ativan taper, completed. Pt is allergic to tramadol, fall/seizure precautions - last seizure 5 weeks ago as reported per pt, regular diet and full code. PMH: Anxiety, depression and PTSD. During shift, pt presented with anxiety and muscle aches - scheduled medications administered, effective as reported per pt. Trazodone 150mg PRN administered, effective. Pt is scheduled for discharge today. Pt slept for 6 hours, intake of 955 ml Po and voids x2. Safety measures in place, call light within reach, side rails up x2, bed locked and in low position. Endorsed to day shift nurse.
--- NOTE | 2016-09-25 07:30 | NUR ---
start of shift note: received pt from overnight associate nurse, pt is in stable condition no s/s of pain or discomfort. pt is admitted to [facility] for opiate/benzo/meth withdrawal/ dependence. pt is set for discharge today. will assist pt with discharging. will continue to monitor pt for any changes and will continue pt for any changes.
[2016-09-25] MEDS: DOCUSATE SODIUM 250 MG CAPSULE PO SCH (08:43)
[2016-09-25] MEDS: NITROFURANTOIN/NITROFURAN MAC 100 MG CAPSULE PO SCH (08:43)
[2016-09-25] MEDS: GABAPENTIN 300 MG CAPSULE PO SCH (08:43)
[2016-09-25] MEDS: MULTIVITAMINS,THERAPEUTIC TABLET PO SCH (08:43)
[2016-09-25 08:44] VITALS: BP 110/68
[2016-09-25] MEDS: CLONIDINE HCL 0.1 MG TABLET PO SCH (08:44)
[2016-09-25] MEDS: FLUTICASONE PROP NASAL SPRAY 16 GM BOTTLE NS SCH (08:45)
[2016-09-25] MEDS: DICYCLOMINE HCL 20 MG TABLET PO SCH (08:45)
[2016-09-25] MEDS: busPIRone 10 MG TABLET PO SCH (08:46)
--- NOTE | 2016-09-25 09:45 | NUR ---
discharge note: pt left the unit in stable condition no s/s of pain or discomfort or any withdrawal symptoms. pt teaching administered and pt verbalized understanding.pt left the unit with all personal belongings. pt will be transferred to changing tides via private car. pt's V/S WNL. pt was every liable d/t personal relationship issues. re-assured pt and pt verbalized she is ready to move on.
== END 2016-09-25 09:45 | disposition other institution (70) | DRG 895 ==
LOC: SRC 09-20 12:43
PROVIDERS: ADMIT Internal Medicine; ATTEND Internal Medicine
PROC: HZ2ZZZZ Detoxification Services for Substance Abuse Treatment (ICD-10-PCS; principal; 2016-09-20)
PROC: HZ31ZZZ Individual Counseling for Substance Abuse Treatment, Behavioral (ICD-10-PCS; 2016-09-21)
PROC: HZ41ZZZ Group Counseling for Substance Abuse Treatment, Behavioral (ICD-10-PCS; 2016-09-21)
DX: F11.23 Opioid dependence with withdrawal (principal); N30.00 Acute cystitis without hematuria; F15.23 Other stimulant dependence with withdrawal; Z59.0 Homelessness; B96.20 Unspecified Escherichia coli [E. coli] as the cause of diseases classified elsewhere; Z86.79 Personal history of other diseases of the circulatory system; F17.210 Nicotine dependence, cigarettes, uncomplicated; F10.10 Alcohol abuse, uncomplicated; Y90.9 Presence of alcohol in blood, level not specified; E83.42 Hypomagnesemia; F13.239 Sedative, hypnotic or anxiolytic dependence with withdrawal, unspecified; G47.00 Insomnia, unspecified; F41.0 Panic disorder [episodic paroxysmal anxiety]; Z59.1 Inadequate housing; Z81.1 Family history of alcohol abuse and dependence; Z81.8 Family history of other mental and behavioral disorders; Z81.3 Family history of other psychoactive substance abuse and dependence; F43.10 Post-traumatic stress disorder, unspecified; F60.3 Borderline personality disorder; K59.00 Constipation, unspecified
CPT/HCPCS: 36415; 70030-TC; 80307; 80324; 80361; 83735; 84100; 84443; 84703; 85025; 86580; 86592; 86705; 86803; 87077; 87086; 87340; 87806; A4663; G6040-TC; J0780; J3535; Q0162

== ENCOUNTER 2017-01-18 16:04 | Inpatient (IN) | payer BC, OTHER ==
[~2017-01-18] VITALS: Ht 162.6 cm; Wt 58.1 kg
[~2017-01-18 16:04] MED LIST changes: -BIOT25007 PO; +BIOT25008 PO; +CLON0.1T14 PO; +DICY20TA28 PO; +Gabapentin PO; +HYDR-3895 PO; +Ibuprofen PO; +METH-33 PO; +NITR100C11 PO; +Trazodone Hcl PO
[2017-01-18] MEDS ORDERED: DICYCLOMINE HCL 20 MG TABLET PO PRN (19:30)
[2017-01-18] MEDS ORDERED: LORAZEPAM 2 MG/1 ML VIAL IM PRN (19:30)
[2017-01-18] MEDS ORDERED: BUPRENORPHINE HCL 2 MG TAB.SUBL SL PRN (19:30)
[2017-01-18] MEDS ORDERED: MIRALAX 17 GM POWD.PACK PO PRN (19:30)
[2017-01-18] MEDS ORDERED: ACETAMINOPHEN 325 MG TABLET PO PRN (19:30)
[2017-01-18] MEDS ORDERED: ONDANSETRON 4 MG/2 ML VIAL IM PRN (19:30)
[2017-01-18] MEDS ORDERED: LORAZEPAM 1 MG TABLET PO PRN (19:30)
[2017-01-18] MEDS ORDERED: LOPERAMIDE HCL 2 MG CAPSULE PO PRN ×2 (19:30)
[2017-01-18] MEDS ORDERED: ONDANSETRON ODT 4 MG TAB.RAPDIS SL PRN (19:30)
[2017-01-18] MEDS ORDERED: diphenhydrAMINE 50 MG CAPSULE PO PRN (19:30)
[2017-01-18] MEDS ORDERED: MAG HYDROX/AL HYDROX/SIMETH 30 ML LIQUID UDC PO PRN (19:30)
[2017-01-18 19:38] VITALS: BP 121/91
--- NOTE | 2017-01-18 19:38 | NUR ---
INTAKE ASSESSMENT VS BP-121/91 P-98 T-98.0 R-18 PA-5/10 ON LEFT FOREARM . SpO2 100% IN RA. PATIENT ALERT AND ABLE TO ANSWER QUESTIONS. SPEECH IS CLEAR. GAIT IS STEADY. PATIENT STATES SHE IS ALLERGIC TO TRAMADOL. SHE HAS SEIZURE HISTORY, LAST ONE WAS 3 MONTHS AGO. SHE REPORTED USING XANAX, HEROIN IV AND METH IV. WILL CONTINUE ADMISSION ON 3RD FLOOR.
--- NOTE | 2017-01-18 20:10 | NUR ---
ADMISSION NOTE PATIENT IS A 21 YEAR OLD FEMALE WHO PRESENTS TO [facility] FOR SUPERVISED WITHDRAWAL FROM BENZO/OPIATE/METH DEPENDENCE. HEIGHT 5'4 AND WEIGHT IS 128 LBS. PATIENT REQUESTED TO BE FULL CODE AND ON REGULAR DIET. BODY CHECK DONE. PATIENT NOTED WITH ABSCESS ON LEFT FOREARM AND TRACK DEE ON BOTH ARMS. PICTURE TAKEN. LUNGS CLEAR AND ABDOMEN SOFT AND NON-DISTENDED. BOWEL SOUNDS ACTIVE ON ALL 4 QUADRANT. PATIENT STATES HER LAST BOWEL MOVEMENT WAS LAST WEEK BUT DENIES ABDOMINAL PAIN OR CONSTIPATION. PER PATIENT SHE DOES NOT HAVE REGULAR BOWEL MOVEMENT WHEN SHE USES. PATIENT STATES NO DIFFICULTY URINATING. PATIENT REPORTS PMH OF SCIATICA , ANXIETY , PANIC ATTACK, PTSD AND SEIZURE , LAST ONE WAS 3 MONTHS AGO D/T W/D FROM XANAX. PATIENT STATES SHE HAD SUICIDE ATTEMPT LAST NOVEMBER 2015. PER PATIENT SHE'S HERE BECAUSE "I CAN'T LIVE LIKE THIS ANYMORE". PATIENT UNEMPLOYED AND LIVES WITH HER BOYFRIEND IN A CAR. SHE HAS HER MOM HER SUPPORT SYSTEM AND SHE'S UNDER HER INSURANCE. HER LONGEST PERIOD OF SOBRIETY IS 9 MONTHS, 3 YEARS AGO. SHE STATES HER WITHDRAWAL SYMPTOMS WHEN SHE DOESN'T USE ARE SWEATING, HOT/COLD AND N/V. SHE STATES SHE DOES NOT HAVE PRIMARY CARE PHYSICIAN. PATIENT SMOKES 2 PACKS DAILY WHEN SHE'S USING. SUBSTANCE HISTORY: 1.XANAX - STARTED USING AT AGE 14. SHE TAKES 6-10 MG DAILY SINCE March. LAST USE WAS 4 MG ON 01/18/17 2.HEROIN IV-STARTED USING AT AGE 15. SHE INJECTS 2 GRAM DAILY SINCE 2015. LAST USE WAS 1/2 GRAM ON 01/18/17 3.METH IV-STARTED USING AT AGE 15. SHE INJECTS 0.7 GRAM INTERMITTENTLY FOR COUPLE OF MONTHS. LAST USE WAS 01/17/17. SHE STATES SHE'S UNABLE TO RECALL THE AMOUNT. TREATMENT HISTORY : [facility]-FEW WEEKS AGO-STAYED FOR 3 DAYS [facility]-October AND SEPTEMBER 20, 2016 PATIENT STATES WHILE SHE WAS IN [facility] SHE WAS TAKING PHENOBARBITAL THERE.PATIENT NOTED EMOTIONAL DURING ADMISSION.PATIENT APPEARS TO BE ANXIOUS AND NOTED RESTLESS. CIWA 13 AT THIS TIME. PATIENT DENIES SI/HI . RELAXATION TECHNIQUE PROVIDED.PATIENT ORIENTED TO SURROUNDINGS AND HOW TO USE CALL LIGHT. EXPLAINED TO PATIENT UNIT POLICIES, Q4 HOURS VS AND SMOKING POLICIES. PLACED PATIENT ON FALL/SEIZURE PRECAUTION. SAFETY MEASURES IN PLACE. CALL LIGHT IN REACH. WILL CONTINUE TO MONITOR. Addendum: 01/19/17 at 0523 by RAGINI HAWKINS LVN ERROR: CIWA 10 NOT 13 DURING ADMISSION Addendum: 01/19/17 at 0530 by RAGINI HAWKINS LVN CLARIFICATION: COWS 6 AND CIWA 4 DURING ADMISSION
[2017-01-18 20:18] LABS: BASOPHILS % (AUTO) 0.5 % (0.0-2.0); EOSINOPHILS # (AUTO) 0.2 K/uL (0.0-0.7); EOSINOPHILS % (AUTO) 2.8 % (0.0-7.0); HEMATOCRIT 44.7 % (37-47); HEMOGLOBIN 14.8 G/DL (12.0-16.0); LYMPHOCYTES # (AUTO) 2.1 K/UL (0.8-4.8); LYMPHOCYTES % (AUTO) 34.4 % (20.5-51.5); MEAN CORPUSCULAR HEMOGLOBIN 29.5 UUG (27.0-31.0); MEAN CORPUSCULAR HGB CONC 33 g/dL (32.0-37.0); MEAN CORPUSCULAR VOLUME 89.2 FL (81.0-99.0); MONOCYTES # (AUTO) 0.7 K/UL (0.1-1.30); NEUTROPHILS # (AUTO) 3.2 K/UL (1.8-8.9); NEUTROPHILS % (AUTO) 50.3 % (38.5-71.5); PLATELET COUNT (AUTO) 225 K/UL (150-450); RED BLOOD CELL COUNT(AUTO) 5.01 MIL/UL (4.2-5.4); WHITE BLOOD COUNT (AUTO) 6.2 K/UL (4.0-11.2)
[2017-01-18 20:36] LABS: ETHANOL < 3 MG/DL (0-0)
[2017-01-18 20:37] LABS: ALANINE AMINOTRANSFERASE 21 U/L (14-59); ALKALINE PHOSPHATASE 87 U/L (50-136); ASPARTATE AMINOTRANSFERASE 21 U/L (15-37); BILIRUBIN,TOTAL 0.6 mg/dL (0.2-1.0); CARBON DIOXIDE 31 mmol/L (21-32); CHLORIDE 101 mmol/L (98-107); CREATININE 0.8 mg/dL (0.6-1.3); GLUCOSE 85 mg/dL (74-106); MAGNESIUM 1.8 mg/dL (1.8-2.4); POTASSIUM 3.6 mmol/L (3.5-5.1); TOTAL PROTEIN, SERUM 8.4 g/dL (6.4-8.2); UREA NITROGEN, BLOOD 8 mg/dL (7-18)
[2017-01-18 21:03] LABS: *URINE HCG, QUAL NEGATIVE (NEGATIVE)
[2017-01-18 21:18] LABS: *AMPHETAMINE, URINE POSITIVE (NEGATIVE); *BARBITURATE, URINE POSITIVE (NEGATIVE); *CANNABINOID, URINE NEGATIVE (NEGATIVE); *COCCAINE, URINE NEGATIVE (NEGATIVE); *OPIATE, URINE POSITIVE (NEGATIVE); *PHENCYCLIDINE SCREEN,URINE NEGATIVE (NEGATIVE)
[2017-01-18] MEDS: METHOCARBAMOL 750 MG TABLET PO PRN (22:07)
[2017-01-18] MEDS: GABAPENTIN 300 MG CAPSULE PO SCH (22:07)
--- NOTE | 2017-01-18 22:07 | NUR ---
PRN ROBAXIN , VISTARIL AND BENADRYL ADMINISTRATION PATIENT C/O ANXIETY, PAIN ON HER LEFT FOREARM DUE TO ABSCESS AND REQUESTS FOR SLEEP AID. PRN ROBAXIN, VISTARIL AND BENADRYL GIVEN. WILL MONITOR FOR EFFECTIVENESS
[2017-01-18] MEDS: HYDROXYZINE PAMOATE 25 MG CAPSULE PO PRN (22:08)
[2017-01-18] MEDS: LORAZEPAM 1 MG TABLET PO PRN (22:12)
--- NOTE | 2017-01-18 22:12 | NUR ---
PRN ATIVAN ADMINISTRATION PATIENT REPORTED SEVERE ANXIETY, NOTED PACING INSIDE HER ROOM, HAND OVER HER HEAD, RESTLESS, TREMULOUS , EMOTIONAL . CIWA 10. REDIRECTION PROVIDED BUT INEFFECTIVE. PRN ATIVAN GIVEN. WILL MONITOR FOR EFFECTIVENESS. RELAXATION CONTINUE TO PROVIDE.
--- NOTE | 2017-01-18 23:12 | NUR ---
PRN ROBAXIN , VISTARIL AND ATIVAN RE-ASSESSMENT PATIENT ATIVAN IS MILDLY EFFECTIVE . CIWA AT THIS TIME IS 4 AND PAIN LEVEL 2/10, TOLERABLE. CONTINUE TO REDIRECT PATIENT. PATIENT SAYS SHE WILL TRY TO RELAX. SHE STATES SHE WILL SMOKE AND WILL TRY TO GO TO SLEEP. WILL CONTINUE TO MONITOR
[2017-01-18] MEDS ORDERED: NALO0.4A7 IJ (23:41)
[2017-01-19] VITALS: BP 115/66
--- NOTE | 2017-01-19 01:00 | NUR ---
OMKAR OCAMPO RE-ASSESSMENT PATIENT ASLEEP AT THIS TIME. RESPIRATION EVEN AND UNLABORED. SAFETY MEASURES IN PLACE. CALL LIGHT IN REACH. WILL CONTINUE TO MONITOR.
[2017-01-19 04:00] VITALS: BP 100/61
--- NOTE | 2017-01-19 07:15 | NUR ---
END OF SHIFT NOTE PATIENT IS A 21 YEAR OLD FEMALE NEWLY ADMITTED FOR BENZO/OPIATE AND METH DEPENDENCE. PATIENT SLEPT 5 HOURS. FLUID INTAKE OF 800 ML. VOIDED X 1. NO BM. LAST COWS 3 AND CIWA 2. PATIENT WAS GIVEN PRN ATIVAN FOR CIWA 10, MILDLY EFFECTIVE , CIWA WENT DOWN TO 4. PATIENT ALSO GIVEN ROBAXIN , VISTARIL AND BENADRYL. REDIRECTION PROVIDED AND POSITIVE ENCOURAGEMENT GIVEN DURING SHIFT. ON FALL/SEIZURE PRECAUTION. SAFETY MEASURES IN PLACE. CALL LIGHT IN REACH. WILL CONTINUE TO MONITOR.
[2017-01-19 08:00] VITALS: BP 91/61
--- NOTE | 2017-01-19 08:00 | NUR ---
START OF SHIFT NOTE Received patient this Am Aox4.Patient very tired and fatigued, she is difficult to arouse but awakens slowly. RR even and unlabored. Call light within reach.No taper ordered yet. PRN Ativan, Benadryl, Robaxin, Vistaril given per night nurse. She slept 5 hours. Last CIWA 2 COWS 3 per night nurse. Encouraged patient to attend groups and activities. Encouraged patient to increase fluid intake to facilitate detox. Encouraged pt to notify RN if S/S of W/D worsen. Will monitor closely and offer help.
[2017-01-19] MEDS: GABAPENTIN 300 MG CAPSULE PO SCH ×3 (09:00→20:52)
[2017-01-19] MEDS ORDERED: TUBERCULIN,PURIF.PROT.DERIV. 5 TU/0.1 ML TEST ID ONE (09:00)
[2017-01-19] MEDS: MULTIVITAMINS,THERAPEUTIC TABLET PO SCH (09:00)
--- NOTE | 2017-01-19 09:10 | NUR ---
COWS/CIWA DEFERRED D/T ORDER BEING WHILE AWAKE. RR EVEN AND UNLABORED. CALL PAREDES WITHIN REACH. VITALS STABLE. NO DISTRESS NOTED. WILL MONITOR CLOSELY.
[2017-01-19] MEDS: LORAZEPAM 1 MG TABLET PO PRN (11:01)
--- NOTE | 2017-01-19 11:10 | NUR ---
PRN MEDS PRN 4 mg Subutex and [address] order. COWS 9 CIWA 9. Will reassess
[2017-01-19 12:00] VITALS: BP 110/74
--- NOTE | 2017-01-19 12:00 | NUR ---
PRN REASSESSMENT COWS 7 CIWA 6. patient states she feels a little better.
[2017-01-19] MEDS: LORAZEPAM 1 MG TABLET PO SCH ×3 (14:00→20:54)
[2017-01-19] MEDS: BUPRENORPHINE HCL 2 MG TAB.SUBL SL SCH ×3 (14:01→21:03)
[2017-01-19] MEDS: CLONIDINE HCL 0.1 MG TABLET PO PRN (15:36)
--- NOTE | 2017-01-19 15:37 | NUR ---
PRN MEDICATION CLONIDINE GIVEN FOR ANXIETY. PATIENT TREMULOUS AND REPORTS ANXIOUSNESS. WILL REASESS
[2017-01-19 16:00] VITALS: BP 112/66
--- NOTE | 2017-01-19 16:21 | NUR ---
PRN REASSESSMENT patient states she feels a little less anxious. patient in bed eating snacks. no distress noted. will monitor.
--- NOTE | 2017-01-19 17:12 | NUR ---
PRN REASSESSMENT patient appears less anxious.she is seen communicating with peers. will monitor
--- NOTE | 2017-01-19 18:31 | NUR ---
END OF SHIFT NOTE Patient continued on 5 day Ativan/5 Day Subutex taper and tolerating well. PRN Clonidine given with effectiveness. 0900 COWS/CIWA deferred due to patient being asleep. Patient rested in bed most of shift. She appeared agitated and anxious. She attended groups and activities. Vital signs stable. Seizure precautions in place. Last COWS 8 CIWA 6. All needs met. All safety measures in place.Patient currently socializing in recreation room. Will endorse to night nurse.
[2017-01-19] MEDS ORDERED: TRAZODONE 100 MG TABLET PO PRN (19:45)
--- NOTE | 2017-01-19 19:50 | NUR ---
Rec'd patient resting in bed. Patient is on day 5 of Ativan/5 Day Subutex taper and tolerating well. Afebrile and vital signs are stable except pulse is elevated @ 106 bpm. Patient denies having chest pain or discomfort at this time. Patient is anxious and requesting a Valium. Valium is not ordered at this time. Patient's COWS score is 4 and CIWA is 6. Patient attended groups and activities during the day shift. Reviewed current plan of care. Patient voiced understanding. No other concerns at this time. Safety and seizure precautions in progress. Bed is in the lowest position, side rails are up and call light is within reach. Will continue to monitor closely.
[2017-01-19 20:00] VITALS: BP 90/55
[2017-01-19] MEDS: LACTOBACILLUS RHAMNOSUS GG 1 EACH CAPSULE PO SCH (20:52)
[2017-01-19] MEDS: SULFAMETH/TRIMETH 800/160 MG TABLET PO SCH (20:52)
[2017-01-19] MEDS: IBUPROFEN 600 MG TABLET PO PRN (20:52)
--- NOTE | 2017-01-19 20:52 | NUR ---
PRN:Motrin. C/o whole body ache @ 02/18. Medicated with Motrin as ordered. Patient tolerated well. Will continue to monitor closely.
--- NOTE | 2017-01-19 21:22 | NUR ---
PRN: MOTRIN. C/o generalized pain @ 10/18. Medicated with Motrin as ordered. Patient tolerated well. Will continue to monitor closely.
--- NOTE | 2017-01-19 21:52 | NUR ---
Reassessment: Patient resting quietly in bed. No signs of distress. Patient stated Motrin was effective. Will continue to monitor closely.
--- NOTE | 2017-01-19 22:22 | NUR ---
Reassessment. Patient resting quietly in bed with eyes closed. No signs of distress. Will continue to monitor closely.
[2017-01-19] MEDS: METHOCARBAMOL 750 MG TABLET PO PRN (23:15)
[2017-01-19] MEDS: HYDROXYZINE PAMOATE 25 MG CAPSULE PO PRN (23:15)
--- NOTE | 2017-01-19 23:15 | NUR ---
PRN: Robaxin/Vistaril. Patient c/o persistent body aches and feeling anxiety is increasing. Patient stated" I would feel much better if I had my Valium or Pheno". Patient was given Robaxin and Vistaril as ordered. patient tolerated well. Will continue to monitor closely.
--- NOTE | 2017-01-20 00:15 | NUR ---
Reassessment: Observed patient resting comfortably with eyes closed. No signs of distress. Will continue to monitor closely.
[2017-01-20 06:07] LABS: HEPATITIS B SURFACE AG Negative (Negative)
--- NOTE | 2017-01-20 06:47 | NUR ---
EOS report: No interval changes. Patient continued on 5 day Ativan/5 Day Subutex taper and tolerating well. Afebrile and vital signs are stable. COWS 5 and CIWA 6. Patient requested Valium and pheno throughout the shift. Patient stated " I don't think this drug protocol is effective". Patient rested in bed most of shift. Initially appeared agitated and anxious but settled down after taking the Ativan/Subutrex protocol. No other concerns at this time. All needs were met. Safety and seizure precautions maintained. Will endorse to oncoming shift to follow up care. to night nurse.
--- NOTE | 2017-01-20 07:00 | NUR ---
Start of Shift Notes: Start of Shift Note: Received patient in her room. Alert and oriented x 4. Verbally responsive. Able to make needs known. Complains of anxiety. States "I dont feel good dude." Encouraged patient to verbalize and elaborate exactly how she feels, but patient starts shaking purposely. Respirations even and unlabored. No SOB noted. Skin warm and dry to touch. No goosebumps noted. VS stable.Abdomen soft and non-distended with (+) BS in all 4 quadrants. No complains of N/V/D or constipation noted. No complains of stomach cramps. Complains of 5/10 generalized body aches. Bladder non-distended. No complains of dysuria. Voids independently. Ambulatory ad stephen with steady gait. Patient is a 21 year old female admitted for opiate, BZO and methamphetamine dependence who was pllaced on a 5-day Ativan and 5-day Subutex taper as ordered. No adverse reactions noted. Has past medical hx of anxiety, panic attacks, PTSD, sciatica, seizures due to BZO withdrawal and suicide attempt in 11/2015. Prior to admission, patient was using 6-10 mg of Xanax, 2 grams of Heroin, and 0.7grams of methamphetamine intermittently. Allergic to Tramadol. FULL CODE. Regular diet. on fal and seizure precautions. Educated patient on her current plan of care for the day and her medication regimen. Encouraged oral fluid intake. Placed on room restriction at this time due to behavioral issues. Will continue to monitor.
[2017-01-20] MEDS: HYDROXYZINE PAMOATE 25 MG CAPSULE PO PRN (08:34)
[2017-01-20] MEDS: BUPRENORPHINE HCL 2 MG TAB.SUBL SL SCH ×3 (08:35→21:06)
[2017-01-20] MEDS: GABAPENTIN 300 MG CAPSULE PO SCH ×2 (08:35→14:38)
[2017-01-20] MEDS: busPIRone 10 MG TABLET PO SCH ×3 (08:35→16:27)
[2017-01-20] MEDS: METHOCARBAMOL 750 MG TABLET PO PRN (08:35)
[2017-01-20] MEDS: LACTOBACILLUS RHAMNOSUS GG 1 EACH CAPSULE PO SCH ×2 (08:35→21:07)
--- NOTE | 2017-01-20 08:35 | NUR ---
Robaxin 750 mg PO/Vistaril 25mg PO/Bentyl 20 mg PO given: 8/ 7. Patient noted with complains of 5/10 generalized pain, anxiety and stomach cramps. Medicated patient with Robaxin 750mg PO/Vistaril 25mg PO and Bentyl 20mg PO as ordered. Will monitor for effectiveness.
[2017-01-20] MEDS: SULFAMETH/TRIMETH 800/160 MG TABLET PO SCH ×2 (08:36→21:07)
[2017-01-20] MEDS: MULTIVITAMINS,THERAPEUTIC TABLET PO SCH (08:36)
[2017-01-20] MEDS ORDERED: LORAZEPAM 1 MG TABLET PO SCH (09:00)
--- NOTE | 2017-01-20 09:35 | NUR ---
Re-assessment: Per patient, PRN Robaxin, Vistaril and Bentyl were effective in reducing patient's pain, anxiety and stomach cramps. Verbalized pain level is 2/10.
--- NOTE | 2017-01-20 11:51 | NUR ---
Therapist prompted client to attend daily group sessions at 11am and 3:30pm. Client stated she would try to attend.
[2017-01-20 12:00] VITALS: BP 101/56
--- NOTE | 2017-01-20 12:53 | NUR ---
Ativan taper changed: Dr. Orlando changed patient's Ativan taper to a modified Valium taper. Orders noted and carried out.
[2017-01-20] MEDS: DIAZEPAM 10 MG TABLET PO SCH ×3 (13:17→21:11)
[2017-01-20 16:00] VITALS: BP 107/71
--- NOTE | 2017-01-20 19:01 | NUR ---
End of Shift Notes: Patients taper was changed from 5-day Ativan to a Valium taper, however continues to be on her 5-day Subutex taper. Tolerating both tapers well. No adverse reactions noted. VS monitored closely q 4 hours. No significant abnormalities noted. Patients withdrawal symptoms were closely monitored. Patient presented with anxiety, agitation, chills, stomach cramps, hot flashes, gross tremors, and muscle aches and pains. Initial COWS 8/CIWA 7. Medicated patient with Robaxin 750 mg PO, Vistaril 50 mg PO and Bentyl 20 mg PO at 0825 with help after 1 hour. Last COWS 4/CIWA 3. Per patient, Subutex and Phenobarbital has been helping her with her withdrawal symptoms. Off room restriction today. Unable to participate in group and activities due to her withdrawal symptoms. Call light kept in reach. Will continue to monitor. Addendum: 01/21/17 at 1057 by RICHIE SHARMA LVN Clarification to end of shift notes: Patient is on Valium and Subutex taper.
--- NOTE | 2017-01-20 19:55 | NUR ---
Start of shift: Rec'd patient resting in bed. Patient is on Valium and 5 Day Subutex taper and tolerating well. Afebrile and vital signs are stable except pulse is elevated @ 112 bpm. Patient denies having chest pain or discomfort at this time. Patient is anxious and requesting a Valium. Valium given as ordered. Patient's COWS score is 4 and CIWA is 3. Patient attended groups and activities during the day shift. Reviewed current plan of care. Patient voiced understanding. No other concerns at this time. Safety and seizure precautions in progress. Bed is in the lowest position, side rails are up and call light is within reach. Will continue to monitor closely.
[2017-01-20 20:35] VITALS: BP 100/75
[2017-01-20] MEDS ORDERED: GABAPENTIN 300 MG CAPSULE PO SCH (21:00)
[2017-01-21 00:24] VITALS: BP 92/44
[2017-01-21 04:42] VITALS: BP 86/53
--- NOTE | 2017-01-21 06:47 | NUR ---
EOS report: No interval changes. Patient continued on Valium and Subutex taper and tolerating well. Afebrile and vital signs are stable. COWS 4/ CIWA 3. Patient slept 8 hrs during the shift. Patient was cooperative throughout the shift. No other concerns at this time. All needs were met. Safety and seizure precautions maintained. Will endorse to oncoming shift to follow up care. to night nurse.
--- NOTE | 2017-01-21 07:00 | NUR ---
Start of Shift Note: Received patient in her room. Alert and oriented x 4. Verbally responsive. Able to make needs known. Complains of anxiety. Redirected with help. Respirations even and unlabored. No SOB noted. Skin warm and dry to touch. No goosebumps noted. VS stable.Abdomen soft and non-distended with (+) BS in all 4 quadrants. No complains of N/V/D or constipation noted. No complains of stomach cramps. Complains of 5/10 generalized body aches. Bladder non-distended. No complains of dysuria. Voids independently. Ambulatory ad stephen with steady gait. Patient is a 21 year old female admitted for opiate, BZO and methamphetamine dependence who was pllaced on a modified Valium and 5-day Subutex taper as ordered. No adverse reactions noted. Has past medical hx of anxiety, panic attacks, PTSD, sciatica, seizures due to BZO withdrawal and suicide attempt in 11/2015. Prior to admission, patient was using 6-10 mg of Xanax, 2 grams of Heroin, and 0.7grams of methamphetamine intermittently. Allergic to Tramadol. FULL CODE. Regular diet. on fal and seizure precautions. Educated patient on her current plan of care for the day and her medication regimen. Encouraged oral fluid intake. Placed on room restriction at this time due to behavioral issues. Will continue to monitor.
[2017-01-21 08:00] VITALS: BP 92/52
[2017-01-21] MEDS ORDERED: BUPRENORPHINE HCL 2 MG TAB.SUBL SL SCH (09:00)
[2017-01-21] MEDS ORDERED: LORAZEPAM 1 MG TABLET PO SCH (09:00)
[2017-01-21] MEDS: busPIRone 10 MG TABLET PO SCH ×3 (09:28→17:06)
[2017-01-21] MEDS: SULFAMETH/TRIMETH 800/160 MG TABLET PO SCH ×2 (09:28→20:53)
[2017-01-21] MEDS: GABAPENTIN 300 MG CAPSULE PO SCH ×2 (09:29→20:42)
[2017-01-21] MEDS: DIAZEPAM 5 MG TABLET PO SCH ×4 (09:29→20:54)
[2017-01-21] MEDS: LACTOBACILLUS RHAMNOSUS GG 1 EACH CAPSULE PO SCH ×2 (09:29→20:42)
[2017-01-21] MEDS: METHOCARBAMOL 750 MG TABLET PO PRN (09:29)
[2017-01-21] MEDS: MULTIVITAMINS,THERAPEUTIC TABLET PO SCH (09:29)
[2017-01-21] MEDS: HYDROXYZINE PAMOATE 25 MG CAPSULE PO PRN ×2 (09:31→20:43)
--- NOTE | 2017-01-21 09:31 | NUR ---
Vistaril 25 mg PO/Robaxin 750 mg PO given: Patient noted with increased anxiety and complain of 7/10 myalgia related to her withdrawal symptoms. Non-pharmacological interventions provided but ineffective. Medicated patient with Robaxin 750 mg PO and Vistaril 25 mg PO as ordered. Will monitor for effectiveness.
--- NOTE | 2017-01-21 10:31 | NUR ---
Re-assessment: Per patient, PRN Vistaril and Robaxin was effective in reducing anxiety and myalgia. PL 07/21.
[2017-01-21 12:00] VITALS: BP 113/67
[2017-01-21] MEDS ORDERED: KETOROLAC TROMETHAMINE 30 MG INJ IM PRN (14:30)
[2017-01-21] MEDS: BACLOFEN 10 MG TABLET PO SCH ×2 (14:33→20:43)
[2017-01-21] MEDS: BUPRENORPHINE HCL 2 MG TAB.SUBL SL SCH ×2 (14:33→20:43)
[2017-01-21] MEDS: DICYCLOMINE HCL 20 MG TABLET PO SCH ×2 (14:35→20:54)
--- NOTE | 2017-01-21 14:42 | NUR ---
Valium 5 mg PO x 1: One time dose of Valium 5 mg PO was administered to the patient. MOLLY 3. Will monitor closely.
[2017-01-21] MEDS ORDERED: DIAZEPAM 5 MG TABLET PO ONE (15:00)
--- NOTE | 2017-01-21 15:42 | NUR ---
Re-assessment: Per patient, Valium has been effective in reducing her withdrawal symptoms. CIWA 2.
[2017-01-21 16:00] VITALS: BP 101/61
[2017-01-21] MEDS: CLONIDINE HCL 0.1 MG TABLET PO PRN (17:06)
--- NOTE | 2017-01-21 18:58 | NUR ---
End of Shift Notes: Patient continues to be on a modified Valium and 5-day Subutex taper. Tolerating both tapers well. No adverse reactions noted. VS monitored closely q 4 hours. No significant abnormalities noted. Patients withdrawal symptoms were closely monitored. Patient presented with anxiety, agitation, chills, and muscle aches and pains. Initial COWS 7/CIWA 5. Medicated patient with Robaxin 750 mg PO, Vistaril 50 mg PO as ordered at 0931 with help after 1 hour. Last COWS 3/CIWA 4. Per patient, Subutex and Valium has been helping her with her withdrawal symptoms. One time Valium was given at 1421 with help. Requires encouragement to participate in group and activities due to her withdrawal symptoms. Call light kept in reach. Will continue to monitor.
[2017-01-21 20:16] VITALS: BP 104/64
--- NOTE | 2017-01-21 20:40 | NUR ---
Start of shift: Rec'd patient resting in bed. Patient is on Valium and 5 Day Subutex taper and tolerating well. Afebrile and vital signs are stable. Patient denies having chest pain or discomfort at this time. No signs of distress. Patient is anxious and requesting a Vistaril. Patient's COWS score is 3 and CIWA is 4. Patient attended groups and activities during the day shift. Reviewed current plan of care. Patient voiced understanding. No other concerns at this time. Safety and seizure precautions in progress. Bed is in the lowest position, side rails are up and call light is within reach. Will continue to monitor closely.
--- NOTE | 2017-01-21 20:43 | NUR ---
PRN Vistaril: C/o feeling anxious and requesting Vistaril. Vistaril given as ordered. Patient tolerated well. Will continue to monitor closely.
--- NOTE | 2017-01-21 21:43 | NUR ---
Reassessment Vistaril: Resting comfortably in bed. No signs of distress. Will continue to monitor closely.
[2017-01-22 00:08] VITALS: BP 90/46
[2017-01-22 04:31] VITALS: BP 94/56
--- NOTE | 2017-01-22 06:40 | NUR ---
EOS report: No interval changes. Patient continued on Valium and Subutex taper and tolerating well. Afebrile and vital signs are stable. COWS 4/ CIWA 2. Patient rec'd Vistaril once for anxiety with good effect. Patient slept 8 hrs during the shift. Patient was cooperative throughout the shift. No other concerns at this time. All needs were met. Safety and seizure precautions maintained. Will endorse to oncoming shift to follow up care. to night nurse.
--- NOTE | 2017-01-22 07:15 | NUR ---
start of shift note: received pt from steward/stewardess night nurse, pt is in stable condition at this time, pt is admitted to [facility] for benzo/opiate/meth withdrawal/dependence. pt's last cows 4 and ciwa 2. pt tolerating taper medications as ordered. no a/r noted will continue to monitor pt for any changes.
[2017-01-22 09:00] VITALS: BP 100/61
[2017-01-22] MEDS ORDERED: LORAZEPAM 1 MG TABLET PO SCH (09:00)
[2017-01-22] MEDS: GABAPENTIN 300 MG CAPSULE PO SCH ×3 (09:48→21:33)
[2017-01-22] MEDS: SULFAMETH/TRIMETH 800/160 MG TABLET PO SCH ×2 (09:48→21:32)
[2017-01-22] MEDS: BACLOFEN 10 MG TABLET PO SCH (09:48)
[2017-01-22] MEDS: DICYCLOMINE HCL 20 MG TABLET PO SCH ×3 (09:48→21:32)
[2017-01-22] MEDS: busPIRone 10 MG TABLET PO SCH ×3 (09:48→16:50)
[2017-01-22] MEDS: LACTOBACILLUS RHAMNOSUS GG 1 EACH CAPSULE PO SCH ×2 (09:48→21:33)
[2017-01-22] MEDS: MULTIVITAMINS,THERAPEUTIC TABLET PO SCH (09:49)
[2017-01-22] MEDS: DIAZEPAM 5 MG TABLET PO SCH ×3 (09:49→21:34)
[2017-01-22] MEDS: BUPRENORPHINE HCL 2 MG TAB.SUBL SL SCH ×3 (09:49→21:34)
[2017-01-22] MEDS ORDERED: HYDROXYZINE PAMOATE 25 MG CAPSULE PO PRN (11:30)
[2017-01-22 12:40] VITALS: BP 122/75
[2017-01-22] MEDS: BACLOFEN 20 MG TABLET PO SCH ×2 (15:14→21:33)
[2017-01-22] MEDS: CLONIDINE HCL 0.1 MG TABLET PO SCH ×2 (15:14→21:33)
[2017-01-22 17:30] VITALS: BP 100/68
--- NOTE | 2017-01-22 18:55 | NUR ---
end of shift note: pt is in stable condition at this time no s/s of pain or discomfort. pt is admitted to [facility] for meth/opiate/benzo withdrawal/dependence. pt's last cows 2 and ciwa 2. pt tolerated taper well no A/R noted. pt has new order for magnesium citrate at bedtime. pt attended groups and activities throughout the shift will endorse pt to lithoplate maker nurse.
[2017-01-22 20:00] VITALS: BP 119/72
--- NOTE | 2017-01-22 20:05 | NUR ---
START OF SHIFT Received report from day shift nurse. Pt attended a group meeting and returned to her room after. Pt is a 21 yo female admitted to [facility] on 01/18 for BZD and Opiate dependence. She is A&O x4 and ambulatory. Allergic to tramadol, full code status, and on a regular diet. She has a PMH of seizure r/t BZD w/d, sciatica, suicide attempt 11/2015, anxiety, panic attack, and PTSD. On admission she admitted to using xanax 6-10mg per day, heroin 2 grams per day, and methamphetamine 0.7 grams intermittently. Pt started a 5 day subutex taper on 01/19 and modified valium taper started 01/20. She reports anxiety, muscle aches, chills, and stomach cramps. Tapers due tonight. Fall and seizure precautions in place. Bed is down with call light in reach.
[2017-01-22] MEDS ORDERED: MAGNESIUM CITRATE 296 ML BOTTLE PO ONE (21:00)
--- NOTE | 2017-01-22 21:30 | NUR ---
Mag Citrate refused Pt reports having one small bowel movement and does not want to take Mag Citrate before bed. She requests to have it rescheduled for the morning.
[2017-01-23] VITALS: BP 92/51
--- NOTE | 2017-01-23 | NUR ---
0000 COWS and CIWA deferred COWS and CIWA ordered Q4HWA. Pt is lying in bed resting with eyes closed. Vital signs obtained. Safety measures in place.
--- NOTE | 2017-01-23 04:00 | NUR ---
0400 Vitals refused/COWS deferred Pt refused to be woken for 0400 vitals. She is lying in bed resting with eyes closed. Respirations even and unlabored. COWS and CIWA ordered Q4HWA. Safety measures in place.
--- NOTE | 2017-01-23 07:21 | NUR ---
END OF SHIFT Report provided to day shift nurse. Pt is lying in bed resting. She is a 21 yo female admitted to [facility] on 01/18 for opiate dependence. She is A&O x4 and ambulatory. Allergic to sulfa, full code status, and on a regular diet. Pt has a PMH of Hepatitis C, herpes, HPV and ADHD. On admission she admitted to using heroin 0.5-1 grams per day and alprazolam intermittently. 4 day Subutex taper ended and she is scheduled for discharge today. PRN Tylenol administered for headache. Last COWS 1 and CIWA 2 before bed. She drank 591mL and slept for 7 hours. Fall precautions in place. Bed is down with call light in reach.
[2017-01-23 08:00] VITALS: BP 90/60
[2017-01-23] MEDS ORDERED: LORAZEPAM 1 MG TABLET PO SCH (09:00)
[2017-01-23] MEDS: CLONIDINE HCL 0.1 MG TABLET PO SCH ×3 (09:00→21:26)
[2017-01-23] MEDS: LACTOBACILLUS RHAMNOSUS GG 1 EACH CAPSULE PO SCH ×2 (09:25→21:26)
[2017-01-23] MEDS: DIAZEPAM 5 MG TABLET PO SCH ×2 (09:25→21:27)
[2017-01-23] MEDS: BACLOFEN 20 MG TABLET PO SCH ×3 (09:25→21:26)
[2017-01-23] MEDS: IBUPROFEN 600 MG TABLET PO PRN (09:25)
[2017-01-23] MEDS: GABAPENTIN 300 MG CAPSULE PO SCH (09:26)
[2017-01-23] MEDS: SULFAMETH/TRIMETH 800/160 MG TABLET PO SCH ×2 (09:26→21:26)
[2017-01-23] MEDS: MULTIVITAMINS,THERAPEUTIC TABLET PO SCH (09:26)
[2017-01-23] MEDS: busPIRone 10 MG TABLET PO SCH ×3 (09:26→16:52)
[2017-01-23] MEDS: DICYCLOMINE HCL 20 MG TABLET PO SCH ×3 (09:26→21:26)
[2017-01-23] MEDS: BUPRENORPHINE HCL 2 MG TAB.SUBL SL SCH ×2 (09:27→21:27)
--- NOTE | 2017-01-23 10:56 | NUR ---
START OF SHIFT: RECEIVE PT A/O X 4. SHE PRESENTS WITH ANXIOUS MOOD AND CONGRUENT AFFECT.VALIUM/SUB TAPER IN PROGRESS. COWS 3 CIWA 3 SHE REPORTS SOME ANXIETY AND BODY ACHES. SHE STATES SHE SLEPT OK AND IS ATTENDING GROUPS. ENCOURAGED INCREASED FLUIDS TO ASSIST IN FACILITATING DETOX PROCESS. WILL CONTINUE TO MONITOR AND MANAGE S/S OF W/D.
[2017-01-23 12:00] VITALS: BP 124/65
[2017-01-23] MEDS ORDERED: GUAIFENESIN SUGAR FREE 100 MG/5 ML UDC PO PRN (12:15)
[2017-01-23] MEDS: GABAPENTIN 400 MG CAPSULE PO SCH ×2 (14:44→21:27)
[2017-01-23 16:00] VITALS: BP 121/66
--- NOTE | 2017-01-23 18:39 | NUR ---
END OF SHIFT: PT CONTINUES ON 5 DAY VALIUM/5 D SUBUTEX TAPER. LAST COWS 5 CIWA 1. SHE REPORTED SOME GENERALIZED BODY ACHES AND STATES THE DETOX MEDS WERE EFFECTIVE IN REDUCING S/S OF W/D. PT CONTINUES ON ABT THERAPY FOR ABSCESS TO ARM. SHE ATTENDED GROUPS AND WAS COMPLIANT WITH INCREASED FLUIDS. WILL PASS SHIFT REPORT TO ONCOMING NIGHT NURSE.
[2017-01-23 20:00] VITALS: BP 118/74
--- NOTE | 2017-01-23 20:00 | NUR ---
START OF SHIFT Received report from day shift nurse. Pt attended a group meeting and returned to her room after. She is a 21 yo female admitted to [facility] on 01/18 for BZD and Opiate dependence. She is A&O x4 and ambulatory. Allergic to tramadol, full code status, and on a regular diet. Pt has a PMH of seizure r/t BZD w/d, sciatica, suicide attempt 11/2015, anxiety, panic attack, and PTSD. Pt denies SI. On admission she admitted to using xanax 6-10mg per day, heroin 2 grams per day, and methamphetamine 0.7 grams intermittently. 5 day subutex taper started on 01/19 and modified valium taper started 01/20. She reports anxiety "always" chills, and hot and cold flashes. Tapers due tonight. Fall and seizure precautions in place. Bed is down with call light in reach.
[2017-01-23] MEDS: FLUTICASONE PROP NASAL SPRAY 16 GM BOTTLE NS SCH (21:00)
[2017-01-24] VITALS: BP 100/63
--- NOTE | 2017-01-24 | NUR ---
0000 COWS and CIWA deferred COWS and CIWA ordered Q4HWA. Pt is lying in bed resting with eyes closed. Vital signs obtained. Safety measures in place.
[2017-01-24 04:00] VITALS: BP 120/78
--- NOTE | 2017-01-24 07:20 | NUR ---
END OF SHIFT Report provided to day shift nurse. Pt is lying in bed resting. She is a 21 yo female admitted to [facility] on 01/18 for BZD and Opiate dependence. She is A&O x4 and ambulatory. Allergic to tramadol, full code status, and on a regular diet. Pt has a PMH of seizure r/t BZD w/d, sciatica, suicide attempt 11/2015, anxiety, panic attack, and PTSD. Pt denies SI. On admission she admitted to using xanax 6-10mg per day, heroin 2 grams per day, and methamphetamine 0.7 grams intermittently. 5 day subutex taper started on 01/19 and modified valium taper started 01/20. Pt is cooperative with treatment. No PRN medications administered. Last COWS 5 and CIWA 3. She drank 855mL and slept for 6 hours. Fall and seizure precautions in place. Bed is down with call light in reach.
[2017-01-24 08:00] VITALS: BP 107/59
--- NOTE | 2017-01-24 08:05 | NUR ---
START OF SHIFT: RECEIVED PT A/O X 4. SHE PRESENTS WITH ANXIOUS MOOD . SUBUTEX TAPER IN PROGRESS.VALIUM COMPLETED. COWS 2 CIWA 1 SHE REPORTS SOME ANXIETY AND AND IS ATTENDING GROUPS. SHE STATES DETOX MEDS ARE EFFECTIVE. SHE EXPRESSED ENTHUSIASM TOWARD RECOVERY PROCESS. WILL CONTINUE TO MONITOR AND MANAGE S/S OF W/D.
[2017-01-24] MEDS: busPIRone 10 MG TABLET PO SCH ×3 (08:33→17:00)
[2017-01-24] MEDS: MULTIVITAMINS,THERAPEUTIC TABLET PO SCH (08:33)
[2017-01-24] MEDS: GABAPENTIN 400 MG CAPSULE PO SCH ×3 (08:33→21:43)
[2017-01-24] MEDS: LACTOBACILLUS RHAMNOSUS GG 1 EACH CAPSULE PO SCH ×2 (08:34→21:43)
[2017-01-24] MEDS: DICYCLOMINE HCL 20 MG TABLET PO SCH ×3 (08:34→21:43)
[2017-01-24] MEDS: SULFAMETH/TRIMETH 800/160 MG TABLET PO SCH ×2 (08:34→21:42)
[2017-01-24] MEDS: CLONIDINE HCL 0.1 MG TABLET PO SCH ×3 (08:36→21:43)
[2017-01-24] MEDS: BACLOFEN 20 MG TABLET PO SCH ×3 (08:36→21:42)
[2017-01-24] MEDS ORDERED: BUPRENORPHINE HCL 2 MG TAB.SUBL SL SCH (09:00)
--- NOTE | 2017-01-24 09:10 | NUR ---
CELL STRIPPER CONSULT PATIENT WAS SEEN BY Arjun LUNA. I & D DONE ON BILATERAL ARMS. TOLERATED WELL. DRESSING INTACT. Addendum: 01/25/17 at 0607 by RAGINI HAWKINS LVN ERROR: TIME CHARTING
[2017-01-24 12:00] VITALS: BP 102/69
--- NOTE | 2017-01-24 12:48 | NUR ---
PT C/O HEARTBURN AND INDIGESTION. PRN MYLANTA GIVEN ORDERED. WILL MONITOR EFFECTIVENESS.
[2017-01-24] MEDS ORDERED: TRAZ-147 PO (14:18)
[2017-01-24] MEDS ORDERED: LACT1CAP57 PO (14:18)
[2017-01-24] MEDS ORDERED: DICY20TA28 PO (14:18)
[2017-01-24] MEDS ORDERED: HYDR-3895 PO (14:18)
[2017-01-24] MEDS ORDERED: GABA-536 PO (14:18)
[2017-01-24] MEDS ORDERED: BACL20TA PO (14:18)
[2017-01-24] MEDS ORDERED: CLON0.1T14 PO (14:18)
[2017-01-24] MEDS ORDERED: IBUP-1955 PO (14:18)
[2017-01-24] MEDS ORDERED: SULF1TAB3 PO (14:18)
[2017-01-24] MEDS ORDERED: BUSP10TA3 PO (14:18)
[2017-01-24 14:44] LABS: *AMPHETAMINE, URINE NEGATIVE (NEGATIVE); *BARBITURATE, URINE POSITIVE (NEGATIVE); *CANNABINOID, URINE NEGATIVE (NEGATIVE); *COCCAINE, URINE NEGATIVE (NEGATIVE); *OPIATE, URINE NEGATIVE (NEGATIVE); *PHENCYCLIDINE SCREEN,URINE NEGATIVE (NEGATIVE)
[2017-01-24 16:00] VITALS: BP 108/62
[2017-01-24] MEDS ORDERED: CALCIUM CARBONATE 500 MG TAB.CHEW PO PRN (16:30)
[2017-01-24] MEDS: FAMOTIDINE 20 MG TABLET PO SCH (17:23)
--- NOTE | 2017-01-24 18:50 | NUR ---
END OF SHIFT: PT COMPLETED ON 5 D SUBUTEX / VALIUM TAPER. LAST COWS 1 CIWA 1. SHE REPORTED SOME GENERALIZED BODY ACHES AND STATES THE DETOX MEDS WERE EFFECTIVE IN REDUCING S/S OF W/D. SHE C/O HEART BURN. MYLANTA GIVEN AND NOT EFFECTIVE. NEW ORDER FOR PEPCID AND TUMS RECEIVED AND ADMINISTERED PER MD. THEY WERE EFFECTIVE. PT CONTINUES ON ABT THERAPY FOR ABSCESS TO ARM. DISCHARGE SCHEDULED FOR TOMORROW. PT STATES SHE IS GOING TO TREATMENT AND EXPRESSED MOTIVATION TOWARD RECOVERY SHE ATTENDED GROUPS AND WAS COMPLIANT WITH INCREASED FLUIDS. [facility]
[2017-01-24 20:00] VITALS: BP 137/86
--- NOTE | 2017-01-24 20:00 | NUR ---
START OF SHIFT NOTE PATIENT ALERT AND ORIENTED X 4. RESPIRATION EVEN AND UNLABORED. PATIENT REPORTS ANXIETY BUT STATES SHES ALRIGHT AND SHES LEAVING TOMORROW. NO N/V. DENIES ANY PAIN. RECEIVED REPORT FROM DAY SHIFT NURSE. PATIENT IS A 21 YEAR OLD FEMALE, ADMITTED FOR BENZO/HEROIN AND METH DEPENDENCE. PATIENT COMPLETED 5 DAY ATIVAN AND 5 DAY SUBUTEX TAPER. PATIENT IS MEDICALLY CLEARED TO BE DISCHARGED TOMORROW. PATIENT IS ALLERGIC TO TRAMADOL. SEIZURE HISTORY-D/T W/D FROM BENZO (LAST ONE WAS 3 MONTHS AGO). PATIENT IS ON ANTIBIOTIC FOR ABSCESS ON LEFT FOREARM WITH NO ADVERSE REACTION. PATIENT DID NOT RECEIVE ANY PRN MEDICATION. LAST COWS 1 AND CIWA 1. ON FALL/SEIZURE PRECAUTION. SAFETY MEASURES IN PLACE. CALL LIGHT IN REACH. WILL CONTINUE TO MONITOR Addendum: 01/24/17 at 7495 by RAGINI HAWKINS LVN PATIENT WAS GIVEN PRN MYLANTA DURING THE DAY
[2017-01-24] MEDS ORDERED: SILVER NITRATE APPLICATOR STICK EACH TP ONE (20:45)
[2017-01-24] MEDS ORDERED: LIDOCAINE 1%-EPI 1:100,000 20 ML VIAL TP ONE (20:45)
[2017-01-24] MEDS ORDERED: LIDOCAINE HCL 1% 20 ML VIAL IJ ONE (20:45)
[2017-01-24] MEDS ORDERED: LIDOCAINE 1%-EPI 1:200,000 MPF 30 ML VIAL IJ ONE (21:00)
--- NOTE | 2017-01-24 21:10 | NUR ---
LABORER CONCRETE PAVING CONSULT PATIENT WAS SEEN BY Arjun LUNA. I & D DONE ON BILATERAL ARMS. TOLERATED WELL. DRESSING INTACT. CONTINUE TO MONITOR.
[2017-01-24] MEDS: METHOCARBAMOL 750 MG TABLET PO PRN (21:42)
[2017-01-24] MEDS: FLUTICASONE PROP NASAL SPRAY 16 GM BOTTLE NS SCH (21:42)
--- NOTE | 2017-01-24 21:42 | NUR ---
PRN ROBAXIN ADMINISTRATION PATIENT C/O PAIN ON BILATERAL ARMS S/P I & D . PRN ROBAXIN GIVEN. WILL CONTINUE TO MONITOR. Addendum: 01/25/17 at 0610 by RAGINI HAWKINS LVN PAIN LEVEL 7/10
--- NOTE | 2017-01-24 22:42 | NUR ---
PRN ROBAXIN RE-ASSESSMENT PATIENT STATES ROBAXIN HELPFUL. PAIN LEVEL IS NOW 2/10. WILL CONTINUE TO MONITOR
--- NOTE | 2017-01-25 07:14 | NUR ---
CHEST X-RAY CANCELLED CHEST X-RAY WAS CANCELLED BY DR. ESCOBEDO. PATIENT IS WITHOUT COUGH.LUNGS CLEAR. RESPIRATION EVEN AND UNLABORED.
--- NOTE | 2017-01-25 07:25 | NUR ---
END OF SHIFT NOTE PATIENT REMAIN ALERT AND ORIENTED X 4. RESPIRATION EVEN AND UNLABORED. PATIENT REPORTED ANXIETY BUT STATES SHES ALRIGHT AND SHES LEAVING . NO N/V. DENIES ANY PAIN. PATIENT COMPLETED 5 DAY ATIVAN AND 5 DAY SUBUTEX TAPER. PATIENT IS MEDICALLY CLEARED TO BE DISCHARGED TODAY. PATIENT IS ALLERGIC TO TRAMADOL. SEIZURE HISTORY-D/T W/D FROM BENZO (LAST ONE WAS 3 MONTHS AGO). PATIENT IS ON ANTIBIOTIC FOR ABSCESS ON LEFT FOREARM WITH NO ADVERSE REACTION. PATIENT WAS SEEN BY Cristobal MATTHEWS AND DID I & D ON BILATERAL ARMS. PATIENT DID WAS GIVEN PRN ROBAXIN. ON FALL/SEIZURE PRECAUTION. SAFETY MEASURES IN PLACE. CALL LIGHT IN REACH. WILL CONTINUE TO MONITOR .SLEPT 4 HOURS. FLUID INTAKE 896 ML. VOIDED X 2 .NO BM. LAST COWS 1 AND CIWA 1 .
--- NOTE | 2017-01-25 07:26 | NUR ---
Start of shift note SBAR report rcv'd. Pt was admitted for benzo and opiate dependence and methamphetamine abuse. Pt has a PMHx of anxiety, panic attacks, PTSD, sciatica pain, and withdrawal induced seizures. Pt has completed a 5 day subutex and 5 day valium taper. Pt reports an allergy to tramadol, is a full code and on a regular diet. Pt is currently resting in bed, pt is on fall and seizure precautions. Bed is locked in a low position, call light within reach, side rails up x 2. Will continue to monitor pt, all needs addressed at this time. Pt is scheduled to discharge to [facility] today.
[2017-01-25 08:00] VITALS: BP 120/73
[2017-01-25] MEDS: LACTOBACILLUS RHAMNOSUS GG 1 EACH CAPSULE PO SCH (09:01)
[2017-01-25 09:02] VITALS: BP 120/73
[2017-01-25] MEDS: GABAPENTIN 400 MG CAPSULE PO SCH (09:02)
[2017-01-25] MEDS: MULTIVITAMINS,THERAPEUTIC TABLET PO SCH (09:02)
[2017-01-25] MEDS: BACLOFEN 20 MG TABLET PO SCH (09:02)
[2017-01-25] MEDS: busPIRone 10 MG TABLET PO SCH (09:02)
[2017-01-25] MEDS: FAMOTIDINE 20 MG TABLET PO SCH (09:02)
[2017-01-25] MEDS: CLONIDINE HCL 0.1 MG TABLET PO SCH (09:02)
[2017-01-25] MEDS: SULFAMETH/TRIMETH 800/160 MG TABLET PO SCH (09:02)
[2017-01-25] MEDS: DICYCLOMINE HCL 20 MG TABLET PO SCH (09:03)
--- NOTE | 2017-01-25 09:56 | NUR ---
Discharge note Pt was admitted for opiate and benzo dependence. Pt has a recent COWS and CIWA of 1 d/t mild anxiety. Pt VS are WNL. LBM 01/24/17. Pt denies any SI/HI. Pt states that she feels ready for discharge. Verbalized her understanding of the discharge instructions. Pt discharge packet, prescriptions, and all belongings returned to pt. Pt ID band removed. Pt ambulated off of unit with BILL COLLECTOR, left facility via [facility] for [place].
== END 2017-01-25 09:56 | disposition other institution (70) | DRG 895 ==
LOC: SRC 19:22
PROVIDERS: ADMIT Internal Medicine; ATTEND Internal Medicine
DX: F11.23 Opioid dependence with withdrawal (principal); F32.9 Major depressive disorder, single episode, unspecified; L02.413 Cutaneous abscess of right upper limb; L02.414 Cutaneous abscess of left upper limb; L03.114 Cellulitis of left upper limb; F13.230 Sedative, hypnotic or anxiolytic dependence with withdrawal, uncomplicated; F15.23 Other stimulant dependence with withdrawal; Z87.442 Personal history of urinary calculi; Z81.8 Family history of other mental and behavioral disorders; Z81.1 Family history of alcohol abuse and dependence; Z81.3 Family history of other psychoactive substance abuse and dependence; Z59.1 Inadequate housing; S51.032S Puncture wound without foreign body of left elbow, sequela; X78.8XXS Intentional self-harm by other sharp object, sequela; F17.210 Nicotine dependence, cigarettes, uncomplicated; F43.10 Post-traumatic stress disorder, unspecified; F10.21 Alcohol dependence, in remission; J00 Acute nasopharyngitis [common cold]; F60.3 Borderline personality disorder
CPT/HCPCS: 36415; 70030-TC; 80307; 80324; 80345; 80346; 80361; 83735; 84703; 85025; 86592; 86705; 86803; 87340; 87806; G0480; J3490; J3535; Q0163

== ENCOUNTER 2017-04-24 16:01 | Inpatient (IN) | payer OTHER, BC ==
[~2017-04-24] VITALS: Ht 162.6 cm; Wt 59.0 kg
[~2017-04-24 16:01] MED LIST changes: +BACL20TA PO; -BIOT25008 PO; +BUSP10TA3 PO; +CLON0.1T PO; +GABA-536 PO; -Gabapentin PO; -HYDR50CA PO; +IBUP-1955 PO; -Ibuprofen PO; +LACT1CAP57 PO; +NALO0.4A7 IJ; -NITR100C11 PO; +SULF1TAB3 PO; +TRAZ-147 PO
[2017-04-25 21:29] VITALS: BP 120/61
[2017-04-25] MEDS ORDERED: MAGNESIUM HYDROXIDE 30 ML LIQUID UDC PO PRN (21:45)
[2017-04-25] MEDS ORDERED: MIRALAX 17 GM POWD.PACK PO PRN (21:45)
[2017-04-25] MEDS ORDERED: DIAZEPAM 5 MG TABLET PO PRN (21:45)
[2017-04-25] MEDS ORDERED: diphenhydrAMINE 50 MG CAPSULE PO PRN (21:45)
[2017-04-25] MEDS ORDERED: IBUPROFEN 600 MG TABLET PO PRN (21:45)
[2017-04-25] MEDS ORDERED: MAG HYDROX/AL HYDROX/SIMETH 30 ML LIQUID UDC PO PRN (21:45)
[2017-04-25] MEDS ORDERED: ONDANSETRON 4 MG/2 ML VIAL IM PRN (21:45)
[2017-04-25] MEDS ORDERED: BUPRENORPHINE HCL 2 MG TAB.SUBL SL PRN (21:45)
[2017-04-25] MEDS ORDERED: LOPERAMIDE HCL 2 MG CAPSULE PO PRN ×2 (21:45)
[2017-04-25] MEDS ORDERED: LORAZEPAM 2 MG/1 ML VIAL IM PRN (21:45)
[2017-04-25] MEDS ORDERED: ACETAMINOPHEN 325 MG TABLET PO PRN (21:45)
[2017-04-25] MEDS ORDERED: DICYCLOMINE HCL 20 MG TABLET PO PRN (21:45)
[2017-04-25] MEDS ORDERED: DIAZEPAM 10 MG TABLET PO PRN ×2 (21:45)
[2017-04-25 22:03] LABS: *URINE HCG, QUAL NEGATIVE (NEGATIVE)
[2017-04-25 22:11] LABS: *AMPHETAMINE, URINE POSITIVE (NEGATIVE); *BARBITURATE, URINE NEGATIVE (NEGATIVE); *CANNABINOID, URINE NEGATIVE (NEGATIVE); *COCCAINE, URINE POSITIVE (NEGATIVE); *OPIATE, URINE POSITIVE (NEGATIVE); *PHENCYCLIDINE SCREEN,URINE NEGATIVE (NEGATIVE)
[2017-04-25] MEDS ORDERED: PHENOBARBITAL 60 MG TABLET PO SCH (23:00)
[2017-04-25 23:12] LABS: BASOPHILS % (AUTO) 0.4 % (0.0-2.0); EOSINOPHILS # (AUTO) 0.3 K/uL (0.0-0.7); HEMATOCRIT 43.5 % (37-47); HEMOGLOBIN 14.8 G/DL (12.0-16.0); LYMPHOCYTES # (AUTO) 3.3 K/UL (0.8-4.8); LYMPHOCYTES % (AUTO) 49.5 % (20.5-51.5); MEAN CORPUSCULAR HEMOGLOBIN 29.5 UUG (27.0-31.0); MEAN CORPUSCULAR HGB CONC 34 g/dL (32.0-37.0); MEAN CORPUSCULAR VOLUME 86.9 FL (81.0-99.0); MONOCYTES # (AUTO) 0.4 K/UL (0.1-1.30); MONOCYTES % (AUTO) 6.7 % (0.0-11.0); NEUTROPHILS # (AUTO) 2.5 K/UL (1.8-8.9); NEUTROPHILS % (AUTO) 38.4 % (38.5-71.5); PLATELET COUNT (AUTO) 222 K/UL (150-450); WHITE BLOOD COUNT (AUTO) 6.5 K/UL (4.0-11.2)
[2017-04-25 23:21] LABS: BILIRUBIN,TOTAL 0.2 mg/dL (0.2-1.0); CREATININE 0.9 mg/dL (0.6-1.3); MAGNESIUM 1.5 mg/dL (1.8-2.4); POTASSIUM 4.5 mmol/L (3.5-5.1); TOTAL PROTEIN, SERUM 7.4 g/dL (6.4-8.2)
[2017-04-25] MEDS: METHOCARBAMOL 750 MG TABLET PO PRN (23:29)
[2017-04-25] MEDS: ONDANSETRON ODT 4 MG TAB.RAPDIS SL PRN (23:30)
[2017-04-25] MEDS ORDERED: PHENOBARBITAL 60 MG TABLET ONE (23:37)
[2017-04-25] MEDS ORDERED: diphenhydrAMINE 50 MG CAPSULE ONE (23:38)
[2017-04-25] MEDS ORDERED: ONDANSETRON ODT 4 MG TAB.RAPDIS ONE (23:38)
[2017-04-25] MEDS ORDERED: METHOCARBAMOL 750 MG TABLET ONE (23:38)
[2017-04-26] MEDS ORDERED: MAGNESIUM OXIDE 400 MG TABLET PO ONE (00:30)
[2017-04-26] MEDS ORDERED: GABA600T2 PO (02:41)
[2017-04-26 04:00] VITALS: BP 109/62
[2017-04-26 08:50] VITALS: BP 106/65
[2017-04-26] MEDS ORDERED: INFLUENZA VACCINE 2017-2018 0.5 ML DISP.SYRIN IM ONE (09:00)
[2017-04-26] MEDS ORDERED: TUBERCULIN,PURIF.PROT.DERIV. 5 TU/0.1 ML TEST ID ONE (09:00)
[2017-04-26] MEDS ORDERED: PNEUMOCOCCAL 23-VAL P-SAC VAC 0.5 ML VIAL IM ONE (09:00)
[2017-04-26] MEDS: GABAPENTIN 300 MG CAPSULE PO SCH ×3 (10:00→21:28)
[2017-04-26] MEDS: SULFAMETH/TRIMETH 800/160 MG TABLET PO SCH ×2 (10:00→21:29)
[2017-04-26] MEDS: LACTOBACILLUS RHAMNOSUS GG 1 EACH CAPSULE PO SCH ×2 (10:01→21:29)
[2017-04-26] MEDS: PHENOBARBITAL 60 MG TABLET PO SCH ×4 (10:01→21:29)
[2017-04-26] MEDS: BUPRENORPHINE HCL 2 MG TAB.SUBL SL SCH ×4 (10:01→21:28)
[2017-04-26] MEDS ORDERED: DIAZEPAM 10 MG TABLET PO ONE (11:00)
[2017-04-26] MEDS ORDERED: BUPRENORPHINE HCL 2 MG TAB.SUBL SL ONE (11:00)
[2017-04-26 12:05] VITALS: BP 109/63
[2017-04-26] MEDS: CLONIDINE HCL 0.1 MG TABLET PO PRN ×2 (14:00→21:29)
[2017-04-26 16:00] VITALS: BP 120/71
[2017-04-26] MEDS ORDERED: QUETIAPINE FUMARATE 25 MG TABLET PO PRN ×2 (16:00)
[2017-04-26] MEDS: METHOCARBAMOL 750 MG TABLET PO PRN ×2 (16:07→21:29)
[2017-04-26 20:00] VITALS: BP 118/72
[2017-04-26] MEDS: ONDANSETRON ODT 4 MG TAB.RAPDIS SL PRN (21:29)
[2017-04-27 08:00] VITALS: BP 126/103
[2017-04-27] MEDS: METHOCARBAMOL 750 MG TABLET PO PRN ×2 (08:46→20:20)
[2017-04-27] MEDS: GABAPENTIN 300 MG CAPSULE PO SCH (08:47)
[2017-04-27] MEDS: LACTOBACILLUS RHAMNOSUS GG 1 EACH CAPSULE PO SCH ×2 (08:48→20:17)
[2017-04-27] MEDS: CLONIDINE HCL 0.1 MG TABLET PO PRN (08:48)
[2017-04-27] MEDS: SULFAMETH/TRIMETH 800/160 MG TABLET PO SCH ×2 (08:49→20:17)
[2017-04-27] MEDS: BUPRENORPHINE HCL 2 MG TAB.SUBL SL SCH ×3 (08:49→20:20)
[2017-04-27] MEDS ORDERED: PHENOBARBITAL 60 MG TABLET PO SCH (09:00)
[2017-04-27] MEDS ORDERED: DIAZEPAM 10 MG TABLET PO ONE (11:00)
[2017-04-27] MEDS ORDERED: DIAZEPAM 10 MG TABLET PO PRN ×2 (11:00)
[2017-04-27 12:00] VITALS: BP 125/84
[2017-04-27 13:29] LABS: HEPATITIS B SURFACE AG Negative (Negative)
[2017-04-27] MEDS: GABAPENTIN 400 MG CAPSULE PO SCH ×2 (14:17→20:17)
[2017-04-27] MEDS: PHENOBARBITAL 60 MG TABLET PO SCH ×2 (14:19→20:19)
[2017-04-27] MEDS ORDERED: GABAPENTIN 300 MG CAPSULE PO SCH (15:00)
[2017-04-27 16:00] VITALS: BP 104/63
[2017-04-27 20:00] VITALS: BP 117/70
[2017-04-27] MEDS: DIAZEPAM 5 MG TABLET PO PRN (20:57)
[2017-04-28] VITALS: BP 117/70
[2017-04-28] MEDS: CLONIDINE HCL 0.1 MG TABLET PO PRN ×3 (03:56→23:44)
[2017-04-28] MEDS: DIAZEPAM 5 MG TABLET PO PRN ×2 (03:56→23:44)
[2017-04-28 08:00] VITALS: BP 118/78
[2017-04-28] MEDS ORDERED: PHENOBARBITAL 60 MG TABLET PO SCH (09:00)
[2017-04-28] MEDS ORDERED: BUPRENORPHINE HCL 2 MG TAB.SUBL SL SCH ×2 (09:00→11:23)
[2017-04-28] MEDS: GABAPENTIN 400 MG CAPSULE PO SCH ×3 (11:13→21:03)
[2017-04-28] MEDS: SULFAMETH/TRIMETH 800/160 MG TABLET PO SCH ×2 (11:13→21:03)
[2017-04-28] MEDS: METHOCARBAMOL 750 MG TABLET PO PRN ×2 (11:13→21:03)
[2017-04-28] MEDS: PHENOBARBITAL 60 MG TABLET PO SCH ×3 (11:14→21:03)
[2017-04-28] MEDS: LACTOBACILLUS RHAMNOSUS GG 1 EACH CAPSULE PO SCH ×2 (11:14→21:03)
[2017-04-28] MEDS ORDERED: BUPRENORPHINE HCL 2 MG TAB.SUBL SL ONE (11:30)
[2017-04-28 12:00] VITALS: BP 102/63
[2017-04-28] MEDS: BUPRENORPHINE HCL 2 MG TAB.SUBL SL SCH ×2 (15:38→21:03)
[2017-04-28 16:00] VITALS: BP 114/65
[2017-04-28 20:00] VITALS: BP 125/66
[2017-04-29] VITALS: BP 136/77
[2017-04-29 04:00] VITALS: BP 97/59
[2017-04-29 08:00] VITALS: BP 90/60
[2017-04-29] MEDS: LACTOBACILLUS RHAMNOSUS GG 1 EACH CAPSULE PO SCH ×2 (08:22→20:53)
[2017-04-29] MEDS: SULFAMETH/TRIMETH 800/160 MG TABLET PO SCH ×2 (08:23→20:54)
[2017-04-29] MEDS: GABAPENTIN 400 MG CAPSULE PO SCH ×3 (08:23→20:53)
[2017-04-29] MEDS: PHENOBARBITAL 60 MG TABLET PO SCH ×2 (08:24→15:45)
[2017-04-29] MEDS: BUPRENORPHINE HCL 2 MG TAB.SUBL SL SCH ×3 (08:24→20:52)
[2017-04-29] MEDS ORDERED: DIAZEPAM 10 MG TABLET PO ONE (11:45)
[2017-04-29] MEDS ORDERED: DIAZEPAM 5 MG TABLET PO PRN (11:45)
[2017-04-29] MEDS ORDERED: DIAZEPAM 10 MG TABLET PO PRN ×2 (11:45)
[2017-04-29] MEDS: CLONIDINE HCL 0.1 MG TABLET PO PRN (11:54)
[2017-04-29 12:00] VITALS: BP 108/60
[2017-04-29] MEDS: BACLOFEN 10 MG TABLET PO SCH ×2 (15:44→20:54)
[2017-04-29 16:00] VITALS: BP 93/60
[2017-04-29 20:00] VITALS: BP 112/77
[2017-04-29] MEDS: METHOCARBAMOL 750 MG TABLET PO PRN (20:52)
[2017-04-29] MEDS: CLONIDINE HCL 0.1 MG TABLET PO SCH (20:53)
[2017-04-29] MEDS ORDERED: PHENOBARBITAL 60 MG TABLET PO SCH (21:00)
[2017-04-30 08:08] VITALS: BP 92/66
[2017-04-30] MEDS: GABAPENTIN 400 MG CAPSULE PO SCH ×3 (08:47→20:55)
[2017-04-30] MEDS: PHENOBARBITAL 60 MG TABLET PO SCH ×2 (08:47→21:00)
[2017-04-30] MEDS: BUPRENORPHINE HCL 2 MG TAB.SUBL SL SCH ×2 (08:47→21:00)
[2017-04-30] MEDS: SULFAMETH/TRIMETH 800/160 MG TABLET PO SCH ×2 (08:47→20:54)
[2017-04-30] MEDS: BACLOFEN 10 MG TABLET PO SCH ×2 (08:48→14:06)
[2017-04-30] MEDS: LACTOBACILLUS RHAMNOSUS GG 1 EACH CAPSULE PO SCH ×2 (08:48→20:55)
[2017-04-30 08:50] VITALS: BP 112/78
[2017-04-30] MEDS: CLONIDINE HCL 0.1 MG TABLET PO SCH ×3 (08:50→20:55)
[2017-04-30] MEDS: busPIRone 10 MG TABLET PO SCH ×3 (09:47→17:03)
[2017-04-30] MEDS: CLONIDINE HCL 0.1 MG TABLET PO PRN (11:56)
[2017-04-30 13:49] VITALS: BP 104/56
[2017-04-30 16:52] VITALS: BP 119/62
[2017-04-30 20:00] VITALS: BP 135/62
[2017-04-30] MEDS: BACLOFEN 20 MG TABLET PO SCH (20:55)
[2017-05-01] VITALS: BP 90/55
[2017-05-01 04:00] VITALS: BP 91/54
[2017-05-01 08:10] VITALS: BP 117/78
[2017-05-01] MEDS ORDERED: PHENOBARBITAL 60 MG TABLET PO SCH (09:00)
[2017-05-01] MEDS ORDERED: BUPRENORPHINE HCL 2 MG TAB.SUBL SL SCH (09:00)
[2017-05-01] MEDS: GABAPENTIN 400 MG CAPSULE PO SCH ×3 (09:43→21:05)
[2017-05-01] MEDS: SULFAMETH/TRIMETH 800/160 MG TABLET PO SCH ×2 (09:44→21:05)
[2017-05-01] MEDS: LACTOBACILLUS RHAMNOSUS GG 1 EACH CAPSULE PO SCH ×2 (09:44→21:05)
[2017-05-01] MEDS: BACLOFEN 20 MG TABLET PO SCH ×3 (09:44→21:08)
[2017-05-01] MEDS: CLONIDINE HCL 0.1 MG TABLET PO SCH ×3 (09:44→21:07)
[2017-05-01] MEDS: busPIRone 10 MG TABLET PO SCH ×3 (09:44→16:50)
[2017-05-01 12:50] VITALS: BP 116/62
[2017-05-01 16:55] VITALS: BP 115/70
[2017-05-01] MEDS: KETOROLAC TROMETHAMINE 30 MG INJ IM PRN (18:47)
[2017-05-01 20:00] VITALS: BP 114/82
[2017-05-01] MEDS ORDERED: IBUP-1955 PO (20:45)
[2017-05-01] MEDS ORDERED: BACL20TA PO (20:45)
[2017-05-01] MEDS ORDERED: BUSP10TA3 PO (20:45)
[2017-05-01] MEDS ORDERED: GABA-536 PO (20:45)
[2017-05-01] MEDS ORDERED: SULF1TAB3 PO (20:45)
[2017-05-01] MEDS ORDERED: QUET25TA PO (20:45)
[2017-05-01] MEDS ORDERED: LACT1CAP57 PO (20:45)
[2017-05-01] MEDS ORDERED: DICY20TA28 PO (20:45)
[2017-05-01] MEDS ORDERED: CLON0.1T14 PO (20:45)
[2017-05-02] VITALS: BP 115/82
[2017-05-02] MEDS: KETOROLAC TROMETHAMINE 30 MG INJ IM PRN (00:50)
[2017-05-02 08:08] VITALS: BP 108/77
[2017-05-02 08:40] VITALS: BP 108/77
[2017-05-02] MEDS: CLONIDINE HCL 0.1 MG TABLET PO SCH (08:40)
[2017-05-02] MEDS: busPIRone 10 MG TABLET PO SCH (08:40)
[2017-05-02] MEDS: LACTOBACILLUS RHAMNOSUS GG 1 EACH CAPSULE PO SCH (08:40)
[2017-05-02] MEDS: BACLOFEN 20 MG TABLET PO SCH (08:40)
[2017-05-02] MEDS: SULFAMETH/TRIMETH 800/160 MG TABLET PO SCH (08:40)
[2017-05-02] MEDS: GABAPENTIN 400 MG CAPSULE PO SCH (08:40)
== END 2017-05-02 09:45 | disposition other institution (70) | DRG 895 ==
LOC: SRC 04-25 20:31
PROVIDERS: ADMIT Internal Medicine; ATTEND Internal Medicine
PROC: HZ2ZZZZ Detoxification Services for Substance Abuse Treatment (ICD-10-PCS; principal; 2017-04-25)
PROC: HZ31ZZZ Individual Counseling for Substance Abuse Treatment, Behavioral (ICD-10-PCS; 2017-04-26)
PROC: HZ41ZZZ Group Counseling for Substance Abuse Treatment, Behavioral (ICD-10-PCS; 2017-04-28)
DX: F13.232 Sedative, hypnotic or anxiolytic dependence with withdrawal with perceptual disturbance (principal); E83.42 Hypomagnesemia; I15.9 Secondary hypertension, unspecified; L03.113 Cellulitis of right upper limb; L02.414 Cutaneous abscess of left upper limb; L02.413 Cutaneous abscess of right upper limb; F11.23 Opioid dependence with withdrawal; F15.23 Other stimulant dependence with withdrawal; F10.10 Alcohol abuse, uncomplicated; F17.210 Nicotine dependence, cigarettes, uncomplicated; Y90.1 Blood alcohol level of 20-39 mg/100 ml; F32.9 Major depressive disorder, single episode, unspecified; F14.10 Cocaine abuse, uncomplicated; S51.042 Puncture wound with foreign body of left elbow; S51.0 Open wound of elbow; X78.8XXS Intentional self-harm by other sharp object, sequela; Z59.1 Inadequate housing; Z59.0 Homelessness; Z81.1 Family history of alcohol abuse and dependence; Z81.8 Family history of other mental and behavioral disorders; Z81.3 Family history of other psychoactive substance abuse and dependence; G89.29 Other chronic pain; Z87.442 Personal history of urinary calculi; Z91.89 Other specified personal risk factors, not elsewhere classified; F60.3 Borderline personality disorder; F43.10 Post-traumatic stress disorder, unspecified
CPT/HCPCS: 36415; 70030-TC; 80307; 80324; 80346; 80353; 80361; 83735; 84703; 85025; 86592; 86705; 86803; 87340; 87806; G0480; J1885; J8499; Q0162; Q0163

== ENCOUNTER 2018-02-09 19:27 | Inpatient (IN) | payer OTHER, BC ==
[~2018-02-09] VITALS: Ht 160 cm; Wt 54.4 kg
[~2018-02-09 19:27] MED LIST changes: -Buspirone Hcl PO; -CLON0.1T PO; -FLUT16SP NS; -HYDR-3895 PO; -METH-33 PO; -NALO0.4A7 IJ; +QUET25TA PO; -TRAZ-147 PO; -Trazodone Hcl PO
--- NOTE | 2018-02-09 23:48 | NUR ---
INTAKE ASSESSMENT BP: 101/61, HR:87, RR:16, SpO2:95% on RA, T:98.0 Pt is in stable condition and able to be admitted on the unit. Unit protocols regarding medications and vital signs Q4H were explained. Pt verbalized understanding. Will continue admission upon arrival on the unit.
[2018-02-10] MEDS ORDERED: diphenhydrAMINE 50 MG CAPSULE PO PRN
[2018-02-10] MEDS ORDERED: ONDANSETRON ODT 4 MG TAB.RAPDIS SL PRN
[2018-02-10] MEDS ORDERED: ACETAMINOPHEN 325 MG TABLET PO PRN
[2018-02-10] MEDS ORDERED: MIRALAX 17 GM POWD.PACK PO PRN
[2018-02-10] MEDS ORDERED: MAGNESIUM HYDROXIDE 30 ML LIQUID UDC PO PRN
[2018-02-10] MEDS ORDERED: LORAZEPAM 1 MG TABLET PO PRN ×2
[2018-02-10] MEDS ORDERED: LOPERAMIDE HCL 2 MG CAPSULE PO PRN ×2
[2018-02-10] MEDS ORDERED: LORAZEPAM 2 MG/1 ML VIAL IM PRN
[2018-02-10] MEDS ORDERED: GABA-534 PO
[2018-02-10] MEDS ORDERED: MAG HYDROX/AL HYDROX/SIMETH 30 ML LIQUID UDC PO PRN
[2018-02-10] MEDS ORDERED: CLONIDINE HCL 0.1 MG TABLET PO PRN
[2018-02-10] MEDS ORDERED: THIAMINE HCL 200 MG/2 ML VIAL IM ONE
[2018-02-10] MEDS ORDERED: DICYCLOMINE HCL 20 MG TABLET PO PRN
[2018-02-10] MEDS ORDERED: ONDANSETRON 4 MG/2 ML VIAL IM PRN
[2018-02-10] MEDS ORDERED: SPIR25TA6 PO
--- NOTE | 2018-02-10 00:30 | NUR ---
Admission note Patient arrived in the unit at 0219. Patient is a 22 year old female who presents to [facility] for Benzo/Opiate and ETOH withdrawal . Patient is allergic to Tramadol and Abilify. Patient requests for full code and regular diet. Seizure history, last one was 7 months ago due to withdrawal from Xanax. She had suicide attempt 3 years ago. No 5150 . Blackouts while using Xanax. Overdose x 6. She had one overdose and they gave her Narcan . Patient reports PMH of anxiety and depression. Patient lives with her parents and she works as certified wellness program manager. When asked why she is seeking treatment . She explained because she relapsed and the reason is her bad decision. When asked what will be different this time. She states she will go to meetings and find a job. Substance History 1.Xanax-started using at age 14. She takes 4 mg daily for 1 1/2 weeks ago . Last use was 6 mg on 02/08/18 2.Heroin- IV/Inhalation - started using at age 14. Per patient she was injecting for first week then started smoking after. 2 grams daily for 1 1/2 weeks. Last use was 2 grams at 5 pm on 02/09/18 3.Vodka -started drinking at age 11. She drinks 5th intermittently . Per patient she only drinks when Xanax is not available. Last drink was 240 ml of champagne on 02/09/18 at 5 pm. She states she had total of 3 glasses the whole day. Treatment History [facility]-1 1/2 weeks ago [facility]-October 2015, September 2016, November 2016, Jan, 2017, and Apr 2017. Patient does not have PCP . Patient brought Spironolactone 25 mg as she takes it for her Acne. She also brought Gabapentin. Typical withdrawal symptoms for her are nausea/vomiting and hot /cold sweats. Patient presents with flat affect, depressed mood, disheveled, nauseated, headache , anxious, irritability, eye avoidant and sensitive to light/sounds . Patient's eyes were closed the whole interview. She gets irritable every questions. She stated " why do we have this now? I'm tired". UA has not been provided. Encourage fluids. COWS and CIWA deferred at this time. Patient is not inactive withdrawal at this time. Safety measures in place. Call light in reach. Will continue to monitor. Addendum: 02/10/18 at 0655 by BARBI HAWKINS LVN Patient states she not taking any medication for anxiety and depression
--- NOTE | 2018-02-10 00:49 | NUR ---
PRN Zofran administration Patient nauseated, no emesis. Will monitor for effectiveness
--- NOTE | 2018-02-10 01:19 | NUR ---
PRN Zofran SL re-assessment Patient states Zofran effective. Nausea ceased. Will continue to monitor
--- NOTE | 2018-02-10 03:30 | NUR ---
COWS and CIWA assessment Patient woke up. Lab unable to do blood draw. Encouraged fluids. Patient anxious and restless. COWS 7 and CIWA 6. Patient went down to smoke. Will continue to monitor.
[2018-02-10 04:00] VITALS: BP 103/62
--- NOTE | 2018-02-10 04:00 | NUR ---
COWS and CIWA deferred Patient lying in bed with eyes closed. Respiration even and unlabored. Will continue to monitor.
--- NOTE | 2018-02-10 07:27 | NUR ---
End of shift note Patient slept 2 hours. Fluid intake 500 ml. Patient unable to urinate. No BM. Patient was given PRN Zofran SL upon admission. Refused B1 injection. Unable to do blood draw. Endorsed to next shift. COWS 7 and CIWA 6. Safety measures in place. Call light in reach. Will continue to monitor.
[2018-02-10 07:49] LABS: *URINE HCG, QUAL NEGATIVE (NEGATIVE)
--- NOTE | 2018-02-10 07:50 | NUR ---
START OF SHIFT NOTE Received report from night nurse 22 year old female admitted for Benzo, Heroin, ETOH withdrawal and currently not on any taper but PRN'S available for increased s/s of withdrawal. Per endorsement patient received PRN Zofran effective tolerated well, slept for 2 hours and last CIWA-6, COWS-7. Per endorsement patient hasn't provided UDS and patient is currently on 1:1 for safety. Received patient with flat facial expression, anxious, agitated, bilateral hand tremors, empty bottles on the floor. Breathing normal no SOB noted. Skin intact warm and dry to touch. All safety measures in place call light within reach. Will cont to monitor.
[2018-02-10 07:56] LABS: *AMPHETAMINE, URINE POSITIVE (NEGATIVE); *BARBITURATE, URINE NEGATIVE (NEGATIVE); *CANNABINOID, URINE NEGATIVE (NEGATIVE); *COCCAINE, URINE NEGATIVE (NEGATIVE); *OPIATE, URINE POSITIVE (NEGATIVE); *PHENCYCLIDINE SCREEN,URINE NEGATIVE (NEGATIVE)
[2018-02-10 08:00] VITALS: BP 101/67
[2018-02-10] MEDS ORDERED: QUETIAPINE FUMARATE 25 MG TABLET PO PRN (08:15)
[2018-02-10 08:56] LABS: BASOPHILS % (AUTO) 0.6 % (0.0-2.0); EOSINOPHILS # (AUTO) 0.1 K/uL (0.0-0.7); EOSINOPHILS % (AUTO) 2.9 % (0.0-7.0); HEMATOCRIT 38.7 % (31.2-41.9); LYMPHOCYTES # (AUTO) 1.9 K/uL (20.0-40.0); LYMPHOCYTES % (AUTO) 43.8 % (20.5-51.5); MEAN CORPUSCULAR HEMOGLOBIN 30.8 uug (24.7-32.8); MEAN CORPUSCULAR HGB CONC 34 g/dL (32.3-35.6); MEAN CORPUSCULAR VOLUME 91.7 fL (75.5-95.3); MONOCYTES # (AUTO) 0.3 K/uL (2.0-10.0); MONOCYTES % (AUTO) 8.1 % (0.0-11.0); NEUTROPHILS # (AUTO) 1.9 K/uL (1.8-8.9); NEUTROPHILS % (AUTO) 44.6 % (38.5-71.5); PLATELET COUNT (AUTO) 179 K/uL (179-408); RED BLOOD CELL COUNT(AUTO) 4.22 MIL/uL (3.63-4.92); WHITE BLOOD COUNT (AUTO) 4.3 K/uL (3.8-11.8)
[2018-02-10] MEDS: busPIRone 10 MG TABLET PO SCH ×3 (09:00→16:44)
--- NOTE | 2018-02-10 09:00 | NUR ---
REFUSED MEDICATION Patient was seen by psychiatrist with new order BuSpar 10mg PO. Patient refused to take medication risk and benefits explained patient still refused, Psychiatrist on unit notified. Will cont to monitor.
[2018-02-10 09:10] LABS: BILIRUBIN,TOTAL 0.4 mg/dL (0.2-1.0); CREATININE 0.9 mg/dL (0.6-1.3); MAGNESIUM 1.6 mg/dL (1.8-2.4); POTASSIUM 3.7 mmol/L (3.5-5.1); TOTAL PROTEIN, SERUM 6.3 g/dL (6.4-8.2)
[2018-02-10 09:18] LABS: THYROID STIMULATING HORMONE 1.467 mIU/mL (0.358-3.740)
[2018-02-10] MEDS: GABAPENTIN 400 MG CAPSULE PO SCH ×3 (09:21→17:42)
[2018-02-10] MEDS: FOLIC ACID 1 MG TABLET PO SCH (09:22)
[2018-02-10] MEDS: BUPRENORPHINE HCL 2 MG TAB.SUBL SL SCH ×4 (09:22→22:05)
[2018-02-10] MEDS: PHENOBARBITAL 60 MG TABLET PO SCH ×3 (09:22→22:04)
[2018-02-10] MEDS: MULTIVITAMINS,THERAPEUTIC TABLET PO SCH (09:22)
[2018-02-10] MEDS: THIAMINE HCL 100 MG TABLET PO SCH (09:22)
--- NOTE | 2018-02-10 09:22 | NUR ---
CIWA/COWS ASSESSMENT CIWA-12,COWS-14 Patient presented with anxiety, agitation, restless, diaphoresis, light headed, runny nose, chills, body aches, bilateral hand tremors, yawning.Patient was seen by MD Barroso with new order to start Phenobarbital and Subutex taper medications administered as ordered. Patient able to provide UA for UDS. Will cont to monitor.
--- NOTE | 2018-02-10 10:42 | NUR ---
Therapist met client. Therapist prompted client to attend group therapy.
[2018-02-10 12:00] VITALS: BP 105/63
--- NOTE | 2018-02-10 12:00 | NUR ---
CIWA/COWS ASSESSMENT CIWA-13,COWS-13 Patient presented with anxiety, agitation, restless, numbness on bilateral hands, diaphoresis, difficulty sitting still, light headed, runny nose, chills, body aches, bilateral hand tremors, yawning. Patient continues with her Phenobarbital and Subutex taper tolerating well. Will cont to monitor.
--- NOTE | 2018-02-10 13:00 | NUR ---
REFUSED MEDICATION Patient refused to take BuSpar 10mg PO risk and benefits explained patient still refused. Will cont to monitor.
[2018-02-10 16:00] VITALS: BP 100/62
--- NOTE | 2018-02-10 16:00 | NUR ---
CIWA/COWS ASSESSMENT CIWA-11,COWS-10 Patient presented with anxiety, agitation, restless, chills, stomach cramps, light headed, runny nose, chills, body aches, bilateral hand tremors, yawning. Will cont to monitor.
--- NOTE | 2018-02-10 17:00 | NUR ---
REFUSED MEDICATION Patient continues to refused to take BuSpar 10mg PO risk and benefits explained patient still refused. Will cont to monitor.
--- NOTE | 2018-02-10 19:18 | NUR ---
END OF SHIFT NOTE Gave report to night nurse, 22 year old female admitted for ETOH, Benzo,Heroin withdrawal. Patient started with Phenobarbital and Subutex taper tolerating well. Patient presented with blunt facial expression, anhedonia, anxiety, agitation, restless, light headed, numbness on bilateral hands, sweats, bilateral hand tremors. Patient was given scheduled medications and she refused her scheduled BuSpar through out the shift psychiatrist notified. Encourage PO fluids as tolerated. Patient rested in her room most of the shift, encourage patient to attend groups and activities to learn new coping skills with good verbal understanding. Last CIWA score was -11, COWS was 10. All safety measures in place, call light within reach. Patient endorse to night nurse in stable condition.
[2018-02-10 20:00] VITALS: BP 99/59
--- NOTE | 2018-02-10 20:00 | NUR ---
COWS 18 AND CIWA 19 Pt presents with anxiety, body aches, lethargy, fatigue, poor concentration, tremors, sweats, agitation, restless legs, photosensitivity, sensitivity to sounds, stuffy nose, stomach cramps, goosebumps, yawning, dilated pupils, disheveled appearance, poor eye contact, unkempt room and is withdrawn. Addendum: 02/11/18 at 0013 by PIETER RG RN DUPLICATE
[2018-02-10] MEDS ORDERED: SULFAMETH/TRIMETH 800/160 MG TABLET PO SCH (21:00)
[2018-02-10] MEDS: METHOCARBAMOL 750 MG TABLET PO PRN (22:04)
--- NOTE | 2018-02-10 22:04 | NUR ---
PRN ROBAXIN ADMINISTRATION Pt reports body aches 12/18. Safety measures in place. Call light within reach. Will continue to monitor.
--- NOTE | 2018-02-10 22:14 | NUR ---
START OF SHIFT Pt is a 22 y/o female admitted on 02/09/18 for benzo, ETOH and opiate withdrawal. Pt is on a 5 day Subutex and Phenobarbital taper that started today, tolerating well. Last CIWA 11 and COWS 10 and no PRNs administered during day shift. Upon assessment pt presents with anxiety, body aches, lethargy, fatigue, poor concentration, tremors, sweats, agitation, restless legs, photosensitivity, sensitivity to sounds, stuffy nose, stomach cramps, goosebumps, yawning, dilated pupils, disheveled appearance, poor eye contact, unkempt room and is withdrawn. Medications due. Safety measures in place. Call light within reach. Will continue to monitor. Addendum: 02/10/18 at 2216 by PIETER RG RN START OF SHIFT CORRECT TIME 1929
--- NOTE | 2018-02-10 23:04 | NUR ---
PRN ROBAXIN REASSESSMENT Pt laying in bed with eyes closed, medication noted effective. Respirations even and unlabored. Safety measures in place. Call light within reach. Will continue to monitor.
--- NOTE | 2018-02-11 | NUR ---
COWS/CIWA DEFERRED AND VITALS REFUSED Pt laying in bed with eyes closed, COWS/CIWA deferred, to be assessed when pt is awake per orders. Vitals refused. Respirations even and unlabored. Safety measures in place. Call light within reach. Will continue to monitor.
[2018-02-11 04:00] VITALS: BP 108/61
--- NOTE | 2018-02-11 04:00 | NUR ---
COWS 14 AND CIWA 15 Pt woke up feelings anxious, restless, sweats, flushed skin, dilated pupils, body aches, pain in legs, restless legs, photosensitivity, sensitivity to sounds, stomach cramps, dilated pupils and disheveled appearance. Pt going out for smoke break.
[2018-02-11] MEDS: IBUPROFEN 400 MG TABLET PO PRN (04:45)
[2018-02-11] MEDS: HYDROXYZINE PAMOATE 25 MG CAPSULE PO PRN (04:45)
--- NOTE | 2018-02-11 04:45 | NUR ---
PRN VISTARIL AND MOTRIN ADMINISTRATION Pt presents with anxiety and reports achy pain in legs 11/18. Safety measures in place. Call light within reach. Will continue to monitor.
--- NOTE | 2018-02-11 05:45 | NUR ---
PRN VISTARIL AND MOTRIN REASSESSMENT Pt laying in bed with eyes closed, medications noted effective. Respirations even and unlabored. Safety measures in place. Call light within reach. Will continue to monitor.
--- NOTE | 2018-02-11 07:02 | NUR ---
END OF SHIFT Pt is a 22 y/o female admitted on 02/09/18 for benzo, ETOH and opiate withdrawal. Pt is on a 5 day Subutex and Phenobarbital taper that started on 02/10/18, tolerating well. Last CIWA 11 and COWS 10 and no PRNs administered during day shift. Upon assessment pt presents with anxiety, body aches, lethargy, fatigue, poor concentration, tremors, sweats, agitation, restless legs, hot and cold sweats, photosensitivity, sensitivity to sounds, stuffy nose, stomach cramps, goosebumps, yawning, dilated pupils, disheveled appearance, difficulty staying asleep, unkempt room and was withdrawn. Scheduled medications and PRN Robaxin, Vistaril and Motrin administered, effective in S/S of withdrawal AEB COWS 18 and CIWA 19 lowered to COWS 14 and CIWA 15 during shift. Pt slept 6 hours. Intake 1500 ml, void x 3, stool x 0. Safety measures in place. Call light within reach. Pts needs have been met. Endorsed to day shift nurse.
[2018-02-11 08:00] VITALS: BP 99/62
--- NOTE | 2018-02-11 08:00 | NUR ---
START OF SHIFT NOTE Received report from night nurse 22 year old female admitted for Benzo, Heroin, ETOH withdrawal and continues with Subutex and Phenobarbital taper tolerating well. Per endorsement patient received PRN Vistaril,Motrin effective per night nurse, slept for 6 hours and last CIWA-15, COWS-14. Received patient with sad facial expression, anxious, agitated, bilateral hand tremors. Breathing normal no SOB noted. Skin intact warm and dry to touch. All safety measures in place call light within reach. Will cont to monitor.
[2018-02-11] MEDS: busPIRone 10 MG TABLET PO SCH (09:00)
[2018-02-11] MEDS: GABAPENTIN 400 MG CAPSULE PO SCH ×3 (09:27→17:12)
[2018-02-11] MEDS: THIAMINE HCL 100 MG TABLET PO SCH (09:28)
[2018-02-11] MEDS: PHENOBARBITAL 60 MG TABLET PO SCH ×4 (09:28→21:21)
[2018-02-11] MEDS: FOLIC ACID 1 MG TABLET PO SCH (09:28)
[2018-02-11] MEDS: BUPRENORPHINE HCL 2 MG TAB.SUBL SL SCH ×3 (09:28→21:21)
[2018-02-11] MEDS: MULTIVITAMINS,THERAPEUTIC TABLET PO SCH (09:28)
--- NOTE | 2018-02-11 09:28 | NUR ---
CIWA/COWS ASSESSMENT Patient presented with anxiety, agitation, restless, chills, stomach cramps, light headed, runny nose, chills, body aches, bilateral hand tremors, yawning, sweats, flushed face. CIWA-13, COWS-13 noted. Patient received her scheduled medications. Will cont to monitor.
[2018-02-11] MEDS: SPIRONOLACTONE 25 MG TABLET PO SCH (09:31)
--- NOTE | 2018-02-11 10:12 | NUR ---
Therapist prompted client to attend daily group therapy sessions.
[2018-02-11 12:00] VITALS: BP 104/63
--- NOTE | 2018-02-11 12:00 | NUR ---
CIWA/COWS ASSESSMENT Patient continues to presents with anxiety, agitation, restless, diaphoresis, light headed, body aches, sweats, runny nose, bilateral hand tremors, CIWA-10, COWS-10 noted. Patient is due for scheduled medications. Will cont to monitor.
[2018-02-11] MEDS ORDERED: MAGNESIUM OXIDE 400 MG TABLET PO ONE (13:15)
--- NOTE | 2018-02-11 14:07 | NUR ---
NEW ORDER Patient's magnesium level noted 1.6L, notified new order to give Mag-OX 800mg PO. Medication administered as ordered patient tolerated well. Will cont to monitor.
[2018-02-11 16:00] VITALS: BP 112/66
--- NOTE | 2018-02-11 16:00 | NUR ---
CIWA/COWS ASSESSMENT Patient continues to presents anxiety, agitation, restless, chills, stomach cramps, light headed, runny nose, chills, bilateral hand tremors, flushed face. CIWA-10, COWS-10 noted. Patient due for her scheduled medications. Will cont to monitor.
--- NOTE | 2018-02-11 19:12 | NUR ---
END OF SHIFT NOTE Gave report to night nurse, 22 year old female admitted for ETOH, Benzo,Heroin withdrawal. Patient started with Phenobarbital and Subutex taper tolerating well. Patient presented with blunt facial expression, anhedonia, anxiety, agitation, restless, light headed, numbness on bilateral hands, sweats, bilateral hand tremors. Patient was given scheduled medications and she refused her scheduled BuSpar in the morning and psychiatrist notified and MD discontinued the BuSpar. Encourage PO fluids as tolerated. Patient rested in her room most of the shift, encourage patient to attend groups and activities to learn new coping skills with good verbal understanding. Last CIWA score was -11, COWS was 11. All safety measures in place, call light within reach. Patient endorse to night nurse in stable condition.
--- NOTE | 2018-02-11 19:30 | NUR ---
START OF SHIFT Pt is a 22 y/o female admitted on 02/09/18 for benzo, ETOH and opiate withdrawal. Pt is on a 5 day Subutex and 5 day Phenobarbital taper, tolerating well. Last COWS 11 and CIWA 11 and no PRNs administered during day shift. Mg replaced. Upon assessment pt presents with anxiety, restlessness, agitation, flushed skin, drenching sweats, stuffy nose, stomach cramps, body aches, photosensitivity, muscle spasms, malaise, lethargy, unkempt room, and difficulty staying asleep. Medications due. Safety measures in place. Call light within reach. Will continue to monitor.
[2018-02-11 20:00] VITALS: BP_SYST 88; BP_DIAS 43; BP_DIAS 61
--- NOTE | 2018-02-11 20:00 | NUR ---
COWS 13 AND CIWA 15 Pt presents with anxiety, restlessness, agitation, flushed skin, drenching sweats, stuffy nose, stomach cramps, body aches, photosensitivity, muscle spasms, malaise, lethargy, unkempt room, and difficulty staying asleep.
[2018-02-11] MEDS: METHOCARBAMOL 750 MG TABLET PO PRN (21:21)
[2018-02-11] MEDS: BACLOFEN 20 MG TABLET PO PRN (21:21)
--- NOTE | 2018-02-11 21:21 | NUR ---
PRN ROBAXIN AND BACLOFEN ADMINISTRATION Pt reports body aches and muscle spasms 11/18. Safety measures in place. Call light within reach. Will continue to monitor.
--- NOTE | 2018-02-11 22:21 | NUR ---
PRN ROBAXIN AND BACLOFEN REASSESSMENT Pt reports body aches and muscle spasms reduced to a tolerable level. Safety measures in place. Call light within reach. Will continue to monitor.
--- NOTE | 2018-02-12 07:03 | NUR ---
END OF SHIFT Pt is a 22 y/o female admitted on 02/09/18 for benzo, ETOH and opiate withdrawal. Pt is on a 5 day Subutex and 5 day Phenobarbital taper, tolerating well. Pt presented with anxiety, restlessness, agitation, flushed skin, drenching sweats, stuffy nose, stomach cramps, body aches, photosensitivity, muscle spasms, malaise, lethargy, unkempt room, and difficulty staying asleep. Scheduled medications and PRN Robaxin and Baclofen administered, effective in S/S of withdrawal as verbalized by pt. Last COWS 13 and CIWA 15. Pt slept 7 hours. Intake 591 ml, void x 3, stool x 0. Safety measures in place. Call light within reach. Pts needs have been met. Endorsed to day shift nurse.
--- NOTE | 2018-02-12 07:40 | NUR ---
START OF SHIFT NOTE Received report from night nurse 22 year old female admitted for Benzo, Heroin, ETOH withdrawal and continues with Subutex and Phenobarbital taper tolerating well. Per endorsement patient received PRN Robaxin, Baclofen effective per night nurse, slept for 7 hours and last CIWA-15, COWS-13. Received patient with sad facial expression, anxious, agitated, bilateral hand tremors. Breathing normal no SOB noted. Skin intact warm and dry to touch. All safety measures in place call light within reach. Will cont to monitor.
[2018-02-12 08:00] VITALS: BP 103/63
[2018-02-12] MEDS: SPIRONOLACTONE 25 MG TABLET PO SCH (08:41)
[2018-02-12] MEDS: THIAMINE HCL 100 MG TABLET PO SCH (08:42)
[2018-02-12] MEDS: MULTIVITAMINS,THERAPEUTIC TABLET PO SCH (08:42)
[2018-02-12] MEDS: FOLIC ACID 1 MG TABLET PO SCH (08:42)
[2018-02-12] MEDS: PHENOBARBITAL 60 MG TABLET PO SCH ×3 (08:42→21:54)
[2018-02-12] MEDS: GABAPENTIN 400 MG CAPSULE PO SCH ×3 (08:42→17:48)
--- NOTE | 2018-02-12 08:42 | NUR ---
CIWA/COWS ASSESSMENT Patient presented with anxiety, agitation, stomach cramps, light headed, chills, body aches, bilateral hand tremors, sweats, flushed face. CIWA-11, COWS-12 noted. Patient received her scheduled medications. Will cont to monitor.
[2018-02-12] MEDS ORDERED: BUPRENORPHINE HCL 2 MG TAB.SUBL SL SCH (09:00)
[2018-02-12] MEDS ORDERED: TUBERCULIN,PURIF.PROT.DERIV. 5 TU/0.1 ML TEST ID ONE (09:00)
--- NOTE | 2018-02-12 11:00 | NUR ---
PATIENT COMMUNICATION Patient urine came out positive for amphetamine. Upon communication with pt, Patient states, " I smoked meth just a couple of hits prior to admission and 1 week ago 3 to 4 hits but i am not using it on daily basis".
[2018-02-12 12:00] VITALS: BP 124/77
[2018-02-12] MEDS ORDERED: MAGNESIUM OXIDE 400 MG TABLET PO ONE (13:00)
[2018-02-12 14:11] LABS: HEPATITIS B SURFACE AG Negative (Negative)
--- NOTE | 2018-02-12 14:30 | NUR ---
CIWA/COWS ASSESSMENT CIWA-10, COWS-11. Patient presented with anxiety, agitation, stomach cramps, light headed, chills, body aches, bilateral hand tremors, sweats. Patient received her scheduled medications. Will cont to monitor.
[2018-02-12] MEDS: BUPRENORPHINE HCL 2 MG TAB.SUBL SL SCH ×2 (14:32→21:54)
[2018-02-12 16:00] VITALS: BP 108/60
--- NOTE | 2018-02-12 16:00 | NUR ---
CIWA/COWS ASSESSMENT Patient presented with anxiety, agitation, restless, light headed, chills, body aches, bilateral hand tremors, sweats. Encourage patient to use non pharmacological intervention such as watching TV, coloring books. Will cont to monitor.
--- NOTE | 2018-02-12 19:12 | NUR ---
END OF SHIFT NOTE Gave report to night nurse, 22 year old female admitted for ETOH, Benzo,Heroin withdrawal. Patient continues with Phenobarbital and Subutex taper tolerating well. Patient presented with sad expression, anhedonia, anxiety, agitation, restless, light headed, numbness on bilateral hands, sweats, bilateral hand tremors. Patient was given scheduled medications and patient did not require any PRN'S. Encourage PO fluids as tolerated. Patient magnesium level was low which was replaced it with 800 mg Mag-Ox as ordered. Encourage patient to attend groups and activities to learn new coping skills with good verbal understanding. Last CIWA score was -7, COWS was 8. All safety measures in place, call light within reach. Patient endorse to night nurse in stable condition.
--- NOTE | 2018-02-12 19:20 | NUR ---
Start Of Shift: patient is a 22 yr old female who was admitted to [facility] on 02/09/18 for a medically supervised withdrawal from ETOH, Benzodiazepines ( Xanax) and Opiates ( heroin), she has been placed on a 5 day Subutex 5 day Phenobarbital taper and is tolerating it well. No PRN medications were given on day shift, her last COWS was 8 and CIWA 9, currently she is in the Rec Room, continue to follow MD plan of care and offer support as needed.
[2018-02-12 20:00] VITALS: BP 131/76
--- NOTE | 2018-02-12 21:30 | NUR ---
COWS 9 CIWA 13 Withdrawal symptoms present as body aches, restlessness, anxiety, irritability, stuffy nose, bilateral fine hand tremors. PRN Motrin 400mg PO given along with scheduled 30mg Phenobarbital and 2mg SL Subutex
[2018-02-12] MEDS: IBUPROFEN 400 MG TABLET PO PRN (21:54)
--- NOTE | 2018-02-12 21:55 | NUR ---
PRN Motrin 400mg PO given for body aches 10/18
--- NOTE | 2018-02-12 22:55 | NUR ---
PRN reassess Patient states Motrin was effective, pain level 2/10
--- NOTE | 2018-02-13 | NUR ---
COWS/CIWA/VITALS Deferred per patient request to be able to sleep through the night uninterrupted, breathing even and unlabored, RR 14, call light within reach
--- NOTE | 2018-02-13 04:00 | NUR ---
COWS/ CIWA deferred Patient requested to be able to sleep through the night uninterrupted, Vitals deferred
--- NOTE | 2018-02-13 06:57 | NUR ---
End Of Shift: Patient is a 22 yr old female who was admitted to [facility] on 02/09/18 for a medically supervised withdrawal from ETOH ( Vodka), Benzodiazepines ( Xanax) and Opiates ( heroin), she has been placed on a 5 day Phenobarbital taper and 5 day Subutex taper and this is day 4. PRN medications given on this shift: Motrin for body aches. Her withdrawal symptoms include restlessness, anxiety, irritability, general body aches and stuffy nose. She had a fluid intake of 900 ML,2 voids and 0 BM, her last COWS was 9 and CIWA 13 @ 9pm and she slept for 6 hours. Continue to follow MD plan of care and offer support as needed. Endorsed to day shift nurse.
--- NOTE | 2018-02-13 07:30 | NUR ---
Start of Shift Pt. is a 22 y/o female admitted for the medically managed withdrawal from Opiates (Heroin), Benzodiazepines (Xanax), and ETOH (Vodka). Pt. was placed on a 5 day Subutex taper and a 5 day Phenobarbital taper to manage her withdrawal symptoms. Endorse from previous shift pt. presented with restlessness, anxiety, irritability, general body aches, and nasal congestion. PRN Motrin given to manage withdrawal symptoms during previous shift. Last COW's of 9 and CIWA of 13. Received pt. in room. Pt. laying in bed with the linen pulled up to her neck. Pt. appears disheveled with a cluttered personal space. No signs of SOB note. Safety measures in place. Will continue to monitor pt.'s behavior for safety.
[2018-02-13 08:00] VITALS: BP 93/61
--- NOTE | 2018-02-13 08:00 | NUR ---
CIWA/COWS ASSESSMENT COWS 10 and CIWA 11. Pt. presents with anxiety, nausea, body aches, chills, diaphoreses, and restlessness. Will administer medication regiment as ordered. Will continue to monitor pt.'s behavior for safety and medication effectiveness.
[2018-02-13] MEDS: THIAMINE HCL 100 MG TABLET PO SCH (09:37)
[2018-02-13] MEDS: SPIRONOLACTONE 25 MG TABLET PO SCH (09:37)
[2018-02-13] MEDS: PHENOBARBITAL 60 MG TABLET PO SCH ×2 (09:37→21:10)
[2018-02-13] MEDS: MULTIVITAMINS,THERAPEUTIC TABLET PO SCH (09:37)
[2018-02-13] MEDS: GABAPENTIN 400 MG CAPSULE PO SCH ×2 (09:38→13:20)
[2018-02-13] MEDS: BUPRENORPHINE HCL 2 MG TAB.SUBL SL SCH ×3 (09:39→21:11)
[2018-02-13] MEDS: FOLIC ACID 1 MG TABLET PO SCH (09:53)
[2018-02-13 12:00] VITALS: BP 126/74
--- NOTE | 2018-02-13 12:00 | NUR ---
CIWA/COWS ASSESSMENT COWS 10 and CIWA 11. Pt. presents with anxiety, nausea, body aches, chills, diaphoreses, and restlessness. Pt. complaint with medication regiment. Will continue to monitor pt.'s behavior for safety and medication effectiveness.
[2018-02-13 16:00] VITALS: BP 120/68
--- NOTE | 2018-02-13 16:00 | NUR ---
CIWA/COWS ASSESSMENT COWS 9 and CIWA 11. Pt. presents with anxiety, nausea, body aches, chills, diaphoreses, and restlessness. Pt. complaint with medication regiment. Will continue to monitor pt.'s behavior for safety and medication effectiveness.
[2018-02-13] MEDS: GABAPENTIN 300 MG CAPSULE PO SCH (16:37)
[2018-02-13] MEDS ORDERED: GABAPENTIN 400 MG CAPSULE PO SCH (17:00)
--- NOTE | 2018-02-13 19:01 | NUR ---
End of Shift Pt. is a 22 y/o female admitted for the medically managed withdrawal from Opiates (Heroin), Benzodiazepines (Xanax), and ETOH (Vodka). Pt. compliant with medication regiment and treatment plan. Pt. presented with restlessness, anxiety, irritability, general body aches, and nasal congestion. No PRN medications given during shift. Last COW's of 9 and CIWA of 11. Encouraged pt. to verbalize concerns and emotions. Safety measures in place. Will endorse pt.'s care to oncoming shift.
--- NOTE | 2018-02-13 19:15 | NUR ---
Start of Shift Note: Patient is a 22 y.o female admitted on 02/09/18 for medically supervised withdrawal from Heroin, Xanax and ETOH use. Patient is alert & oriented x4. She appears with a flat affect, anxious and agitated mood. She appears disheveled, room has scattered clothes, empty bottles and food throughout the room. Pt continues to be on 5-day Subutex and 5-day Phenobarbital taper and tolerating well. Pt presented with sweating, chills, c/o of 8/10 leg pain, nausea, and restlessness. Pt denies hallucinations at this time. Last COWS 9 CIWA 11 @ 1600. No PRN medications received during the day. Fall & Seizure precautions observed. Bed locked in lowest position. Both side rails up for safety. Call light within pts reach. Will continue to monitor patient.
[2018-02-13 20:00] VITALS: BP 105/67
[2018-02-13] MEDS: BACLOFEN 20 MG TABLET PO PRN (21:10)
[2018-02-13] MEDS: METHOCARBAMOL 750 MG TABLET PO PRN (21:11)
[2018-02-13] MEDS: HYDROXYZINE PAMOATE 25 MG CAPSULE PO PRN (21:11)
--- NOTE | 2018-02-13 21:11 | NUR ---
PRN Administration Patient complained of 9/10 pain on her left leg. Pt appears restless and anxious with noted facial grimacing. PRN Robaxin, Baclofen and Vistaril administered as ordered. Will monitor for effectiveness of medication.
--- NOTE | 2018-02-13 22:11 | NUR ---
PRN Reassessment Pt verbalized relief from leg pain and decreased in anxiety after medication administrtaion. Pt in bed and appears comfortable. No facial grimacing noted. Safety measures in place. Will continue to monitor patient.
[2018-02-14 04:00] VITALS: BP 103/56
--- NOTE | 2018-02-14 07:25 | NUR ---
End of Shift Note: Patient still asleep in bed but easily arousable. Pt stable and vitals noted WNL. Pt continues her 5-day Subutex and 5-day Phenobarbital taper. Last COWS CIWA 10. Pt received PRN Robaxin, Baclofen and Vistaril and were effective. Pt remained compliant with medication and treatment plan. Encourage pt to attend group therapy to prevent relapse. All due meds given and all needs attended. Fluid intake:1300ml, Voided 2x with no BM noted. Pt slept for a total of 7 hours. Safety measures in place. Will endorse all pertinent information to oncoming nurse.
--- NOTE | 2018-02-14 07:30 | NUR ---
Start of Shift Note Pt. is a 22 y/o female admitted for the medically managed withdrawal from Opiates (Heroin), Benzodiazepines (Xanax), and ETOH (Vodka). Pt. was placed on a 5 day valium and 5 day Subutex taper to manage her withdrawal symptoms. Today is her last day of both taper medications. Endorse from pervious shift pt. presented with body aches, anxiety and nausea. Last COWS 9 and CIWA 10. Pt. received PRN Robaxin, Baclofen, and Vistaril to manage her symptoms. Received pt. in room. Pt.s laying in bed with her eyes close and linen cluttered about. Pt.s room is messy with personal belongings and food containers cluttered about. No signs of distress noted. Safety measures in place. Will continue to monitor pt.s behavior for safety.
[2018-02-14 08:00] VITALS: BP 80/50
[2018-02-14] MEDS ORDERED: PHENOBARBITAL 60 MG TABLET PO SCH (09:00)
[2018-02-14] MEDS ORDERED: BUPRENORPHINE HCL 2 MG TAB.SUBL SL SCH (09:00)
[2018-02-14] MEDS: GABAPENTIN 300 MG CAPSULE PO SCH ×3 (09:21→16:32)
[2018-02-14] MEDS: THIAMINE HCL 100 MG TABLET PO SCH (09:21)
[2018-02-14] MEDS: MULTIVITAMINS,THERAPEUTIC TABLET PO SCH (09:21)
[2018-02-14] MEDS: FOLIC ACID 1 MG TABLET PO SCH (09:21)
[2018-02-14] MEDS: SPIRONOLACTONE 25 MG TABLET PO SCH (10:18)
[2018-02-14 12:00] VITALS: BP 105/60
[2018-02-14 16:00] VITALS: BP 124/61
--- NOTE | 2018-02-14 19:00 | NUR ---
End of Shift Note Pt. is a 22 y/o female admitted for the medically managed withdrawal from Opiates (Heroin), Benzodiazepines (Xanax), and ETOH (Vodka). Pt. was placed on a 5 day Phenobarbital and 5 day Subutex taper to manage her withdrawal symptoms which she completed today. Pt. is set to be discharge tomorrow morning. Throughout shift pt. presented with body aches, anxiety and nausea. Last COWS 7 and CIWA 10. Pt. received No PRNs during shift. Safety measures in place. Will endorse pt.s care to oncoming shift.
--- NOTE | 2018-02-14 19:30 | NUR ---
START OF SHIFT Pt is a 22 y/o female admitted on 02/09/18 for benzo, ETOH and opiate withdrawal. Pt completed a 5 day Subutex and 5 day Phenobarbital taper, tolerating well. Pt is set to be discharged tomorrow. Last COWS 7 and CIWA 10 and no PRNs administered during day shift. Upon assessment Pt presents with anxiety, restlessness, agitation, flushed skin, body aches, and difficulty staying asleep.PRN medication available. Safety measures in place. Call light within reach. Will continue to monitor.
[2018-02-14 20:00] VITALS: BP 122/80
--- NOTE | 2018-02-14 20:00 | NUR ---
COWS 7 CIWA 8 Pt presents with anxiety, restlessness, agitation, flushed skin, body aches. Safety measures in place. Call light within reach. Will continue to monitor.
[2018-02-14] MEDS ORDERED: GABA-534 PO (21:03)
[2018-02-14] MEDS ORDERED: BACL20TA PO (21:03)
[2018-02-14] MEDS ORDERED: CLON0.1T14 PO (21:03)
[2018-02-14] MEDS: BACLOFEN 20 MG TABLET PO PRN (22:33)
[2018-02-14] MEDS: METHOCARBAMOL 750 MG TABLET PO PRN (22:34)
--- NOTE | 2018-02-14 22:34 | NUR ---
PRN CLONIDINE, BACLOFEN, AND ROBAXIN ADMINISTRATION Pt complains of generalized body pain 8/10, anxiety, agitation, and restlessness. PRN medications were administered per order. Safety measures in place. Call light within reach. Will continue to monitor.
--- NOTE | 2018-02-14 23:34 | NUR ---
PRN CLONIDINE, BACLOFEN, AND ROBAXIN REASSESSMENT Pt was found in bed with eyes closed. Pt's respirations even and unlabored. No signs of acute distress noted. Safety measures in place. Call light within reach. Will continue to monitor.
[2018-02-15] VITALS: BP 105/69
--- NOTE | 2018-02-15 | NUR ---
COWS/CIWA DEFERRED AND VITAL SIGNS REFUSED Patient is noted in bed with eyes closed. Breathing even and non labored. COWS/CIWA and vital signs not able to be completed per order. Safety measures in place. Call light within reach. Will continue to monitor.
--- NOTE | 2018-02-15 07:09 | NUR ---
END OF SHIFT Pt is a 22 y/o female admitted on 02/09/18 for benzo, ETOH and opiate withdrawal. Pt completed a 5 day Subutex and 5 day Phenobarbital taper. Pt is set to be discharged today. Pt presented with anxiety, restlessness, agitation, flushed skin, body aches, and difficulty staying asleep. PRN Clonidine, Robaxin, and Baclofen administered, effective in S/S of withdrawal as verbalized by Pt. Last COWS 7 and CIWA 8. Pt slept 8 hours. Intake 2000 ml, void x 4, stool x 1. Safety measures in place. Call light within reach. Pt's needs have been met. Endorsed to day shift nurse.
--- NOTE | 2018-02-15 07:30 | NUR ---
Start of Shift Rug Drying Machine Operator received report on 22 year old female admitted to [facility] on 02/09/18 for medical management of Benzodiazepine, ETOH and Opiate withdrawals. Pt endorses allergies to TRAMADOL and Abilify, eats a regular diet and is a full code. Pt endorses PMH to include asthma and PPH of anxiety and depression. Pt has completed Subutex and Phenobarbital tapers in preparation of pts planned discharge this morning. Last CIWA 8 and COWS 7, per NOC report. Pt was administered PRN Clonidine(anxiety), Baclofen(muscle spasms) and Robaxin(myalgia) on NOC per report. Rug Drying Machine Operator encounters pt in pts room for morning vital signs. Pt is lethargic, but oriented x4. Endorses some generalized body discomfort, anxiety and stomach spasms. Pt is irritable about her discharge plan, but is optimistic about her future. Linear thought process, clear speech pattern. Flat affect with a depressed mood. Bed in low position with wheels locked and side rails up x2. Will continue to monitor, support and encourage according to plan of care.
[2018-02-15 08:00] VITALS: BP 104/62
--- NOTE | 2018-02-15 08:00 | NUR ---
CIWA 6/COWS 5 Pt is anxious, restless and has moist skin. Pt complains of nausea, chills and myalgia. Will continue to monitor, support and encourage according to plan of care.
[2018-02-15] MEDS: FOLIC ACID 1 MG TABLET PO SCH (08:25)
[2018-02-15] MEDS: SPIRONOLACTONE 25 MG TABLET PO SCH (08:25)
[2018-02-15] MEDS: MULTIVITAMINS,THERAPEUTIC TABLET PO SCH (08:25)
[2018-02-15] MEDS: THIAMINE HCL 100 MG TABLET PO SCH (08:25)
[2018-02-15] MEDS: GABAPENTIN 300 MG CAPSULE PO SCH (08:25)
--- NOTE | 2018-02-15 08:52 | NUR ---
Discharge Assessment Pt is A/O x4 and makes her needs known. Linear thought process with clear speech pattern. Cooperative and pleasant, anxious and restless with complaints of nausea, chills and myalgia. Last CIWA 6 and COWS 5. No PRN medication administered this am. Pt denies SI/HI or A/VH. Pt is irritable about how her discharge is scheduled, but is optimistic about her relationship with her parents, " it's better then before I moved back in." Pt with a flat affect and depressed mood. Jumpbasting Machine Operator educated pt on importance of continued sobriety and need for continued follow-up care. Pt was educated on discharge educational material and discharge prescriptions. Pt educated on timing, name, route, and indication and of all prescribed medications. Pt was escorted to private transportation for transportation to pt [facility].
== END 2018-02-15 08:52 | disposition home or self-care (01) | DRG 895 ==
LOC: SRC 23:01
PROVIDERS: ADMIT Family Medicine Addiction Medicine; ATTEND Internal Medicine
DX: F10.230 Alcohol dependence with withdrawal, uncomplicated (principal); F13.230 Sedative, hypnotic or anxiolytic dependence with withdrawal, uncomplicated; Y90.6 Blood alcohol level of 120-199 mg/100 ml; Z91.5 Personal history of self-harm; F41.9 Anxiety disorder, unspecified; F32.9 Major depressive disorder, single episode, unspecified; F11.23 Opioid dependence with withdrawal; F17.210 Nicotine dependence, cigarettes, uncomplicated; Z81.1 Family history of alcohol abuse and dependence; Z81.3 Family history of other psychoactive substance abuse and dependence
CPT/HCPCS: 36415; 70030-TC; 80307; 80324; 80361; 83690; 83735; 84443; 84703; 85025; 86580; 86592; 86705; 86803; 87340; 87806; A4663; G0480; J8499; Q0162

== ENCOUNTER 2018-04-26 14:08 | Inpatient (IN) | payer OTHER, BC ==
[~2018-04-26] VITALS: Ht 162.6 cm; Wt 50.3 kg
[~2018-04-26 14:08] MED LIST changes: -BUSP10TA3 PO; -DICY20TA28 PO; +GABA-534 PO; -GABA-536 PO; -IBUP-1955 PO; -LACT1CAP57 PO; +SPIR25TA6 PO; -SULF1TAB3 PO
[2018-04-27] VITALS (7 sets, daily range): BP systolic 80–111; BP diastolic 42–75
[2018-04-27] MEDS ORDERED: MAGNESIUM HYDROXIDE 30 ML LIQUID UDC PO PRN (01:30)
[2018-04-27] MEDS ORDERED: ONDANSETRON 4 MG/2 ML VIAL IM PRN (01:30)
[2018-04-27] MEDS ORDERED: LOPERAMIDE HCL 2 MG CAPSULE PO PRN ×2 (01:30)
[2018-04-27] MEDS ORDERED: DICYCLOMINE HCL 20 MG TABLET PO PRN (01:30)
[2018-04-27] MEDS ORDERED: ACETAMINOPHEN 325 MG TABLET PO PRN (01:30)
[2018-04-27] MEDS ORDERED: diphenhydrAMINE 50 MG CAPSULE PO PRN (01:30)
[2018-04-27] MEDS ORDERED: MIRALAX 17 GM POWD.PACK PO PRN (01:30)
[2018-04-27] MEDS ORDERED: HYDROXYZINE PAMOATE 25 MG CAPSULE PO PRN (01:30)
[2018-04-27] MEDS ORDERED: MAG HYDROX/AL HYDROX/SIMETH 30 ML LIQUID UDC PO PRN (01:30)
--- NOTE | 2018-04-27 01:35 | NUR ---
Pre-Assessment Pt is a 22 year old female seen in intake along with her boyfriend who arrived with her for support. Pt presents to [facility] and is seen sitting in chair and is slumped over and sleeping. Pt arouses to touch and when name is called. Upon assessment, pt is able to state that she feels anxious, yet tired. Pt falls back to sleep easily, unable to concentrate on the assessment questions being asked. Regarding substance use history, pt's boyfriend stated the amounts used of Heroin 0.5-1g/daily x3 months and Xanax 4mg /daily x1.5 weeks due to anxiety. Pts boyfriend also stated, "She hasn't slept in 5 days". When asking the patient to further clarify if she's slept, pt states, "Yah, I'm really tired, I haven't slept at all for the past 5 days". Vital signs taken, rules of the unit explained. Will continue with admission process upon arrival on unit.
--- NOTE | 2018-04-27 01:45 | NUR ---
Arrival on Unit Patient is a 22 year old female who presents to [facility] for medically supervised withdrawal from Opiate- Heroin and Benzos-Xanax. Patient arrived on to the unit at 0145 with female intake in wheel chair. Patient is slumped over in wheel chair. She is arousable to name and touch but easily falls back to sleep. 2 person, max assist utilized during body and skin search with primary nurse present. Skin noted intact. During skin assessment patient was able to verbalize height to be 54 and weight 111lbs. She appears to be disheveled with uncombed hair. She is noted with slurred garbled speech. Patient was placed on 1:1 due to patient unable to provide urine drug screen as well as safety. Per charge nurse, patients boyfriend reported that patient was using: Opiate-Heroin 0.5-1GM daily via inhalation for the last 3 months. The last reported dose was 04/26/18 2000 using 0.2GM Xanax 4mg daily PO for the last 1.5 weeks due to increased anxiety. Past medical history reported to CN by the patient noted as Anxiety, PTSD, Depression, and possible seizure on 02/10/18. Patient states Im unsure if it was a seizure. Boyfriend also reported that patient is noted with difficulty sleeping and has not slept in approximately 5 days. Home medications noted in patients luggage noted as: Neurontin 300mg TID, Preparation H Supp, and Spironolactone 25mg BID. 1:1: remains at bedside. Vitals Rendered and noted. Breathing even and non labored. All needs attended to promptly. Unable to complete COWS assessment due to patient being intoxicated. Will continue to monitor. Addendum: 04/27/18 at 1005 by NERY YODER RN Patient states she has been using 4-12mg Xanax/day for the past 6 weeks,last use was 1mg PO last night at 8pm
[2018-04-27 01:47] LABS: BASOPHILS % (AUTO) 0.4 % (0.0-2.0); EOSINOPHILS # (AUTO) 0.2 K/uL (0.0-0.7); HEMOGLOBIN 14.6 g/dL (10.9-14.3); LYMPHOCYTES # (AUTO) 3.4 K/uL (20.0-40.0); LYMPHOCYTES % (AUTO) 43.2 % (20.5-51.5); MEAN CORPUSCULAR HEMOGLOBIN 30.9 uug (24.7-32.8); MEAN CORPUSCULAR HGB CONC 35 g/dL (32.3-35.6); MEAN CORPUSCULAR VOLUME 89.1 fL (75.5-95.3); MONOCYTES # (AUTO) 0.6 K/uL (2.0-10.0); MONOCYTES % (AUTO) 7.5 % (0.0-11.0); NEUTROPHILS # (AUTO) 3.7 K/uL (1.8-8.9); NEUTROPHILS % (AUTO) 46.9 % (38.5-71.5); PLATELET COUNT (AUTO) 294 K/uL (179-408); RED BLOOD CELL COUNT(AUTO) 4.72 MIL/uL (3.63-4.92); WHITE BLOOD COUNT (AUTO) 7.9 K/uL (3.8-11.8)
[2018-04-27 01:55] LABS: ETHANOL < 3 MG/DL (0-0)
[2018-04-27 02:00] LABS: ALANINE AMINOTRANSFERASE 16 U/L (14-59); ALKALINE PHOSPHATASE 67 U/L (50-136); AMYLASE 56 U/L (25-115); ASPARTATE AMINOTRANSFERASE 17 U/L (15-37); BILIRUBIN,TOTAL 0.3 mg/dL (0.2-1.0); CARBON DIOXIDE 34 mmol/L (21-32); CHLORIDE 101 mmol/L (98-107); CREATININE 0.8 mg/dL (0.6-1.3); GLUCOSE 72 mg/dL (74-106); LIPASE 72 U/L (73-393); MAGNESIUM 1.9 mg/dL (1.8-2.4); POTASSIUM 3.9 mmol/L (3.5-5.1); TOTAL PROTEIN, SERUM 7.6 g/dL (6.4-8.2); UREA NITROGEN, BLOOD 12 mg/dL (7-18)
[2018-04-27 02:19] LABS: THYROID STIMULATING HORMONE 2.476 mIU/mL (0.358-3.740)
[2018-04-27] MEDS ORDERED: GABA-534 PO (03:05)
[2018-04-27] MEDS ORDERED: PHEN1SUP42 RC (03:05)
--- NOTE | 2018-04-27 04:00 | NUR ---
COWS Assessment Patient is noted in bed with eyes closed. Breathing even and non labored. No signs of restlessness or facial grimacing noted. Vital signs rendered and noted. COWS not able to be completed as per order. 1:1 sitter remains. Will continue to monitor.
--- NOTE | 2018-04-27 06:58 | NUR ---
End of Shift Patient is in bed with eyes closed. Breathing even and non labored. Patient is currently receiving PRN Medications for increased signs and symptoms of withdrawal. Patient arrived to the unit slumped over in a wheelchair. She is arousable to name and touch. No PRN medications administered. COWS assessment not able to be completed as per order due to patient being intoxicated. Patient noted to sleep a total of 5 hours. Patient remains on 1:1 for unsteady gait. All needs attended to promptly. Morning shift to clarify patients usage due to patients intoxication level. Will endorse to continue plan of care as ordered.
--- NOTE | 2018-04-27 07:28 | NUR ---
Start of Shift Patient is a 22yr old female who was admitted to [facility] this AM 04/27/18 for a medically supervised withdrawal from Benzodiazepines ( Xanax) and Opiates ( Heroin) , she has not been placed on any taper yet. She has not provided a urine specimen yet, she is on a 1:1 for unsteady gait and safety,per rehab manager report she was unable to answer all questions upon admission,this RN will attempt to finish assessment.She has been asleep for 5 hours, No PRN medications were given and COWS was unable to be assessed. Currently she is asleep in bed, breathing even and unlabored, side rails up x2,sitter at bedside. Continue to offer support and encouragement.
--- NOTE | 2018-04-27 08:30 | NUR ---
COWS 5 CIWA 13 patient presents with increased anxiety,irritability,restlessness,fine tremors and agitation. Ativan 2mg PO PRN given
--- NOTE | 2018-04-27 08:45 | NUR ---
PRN Ativan Given for s/s withdrawal ,increased anxiety, gross tremors,restlessness,irritability and agitation 2mg PO given PRN
[2018-04-27] MEDS: LORAZEPAM 1 MG TABLET PO PRN ×2 (08:46→17:29)
[2018-04-27 08:55] LABS: *AMPHETAMINE, URINE NEGATIVE (NEGATIVE); *BARBITURATE, URINE NEGATIVE (NEGATIVE); *CANNABINOID, URINE NEGATIVE (NEGATIVE); *COCCAINE, URINE NEGATIVE (NEGATIVE); *OPIATE, URINE POSITIVE (NEGATIVE); *PHENCYCLIDINE SCREEN,URINE NEGATIVE (NEGATIVE)
[2018-04-27 09:19] LABS: *URINE HCG, QUAL NEGATIVE (NEGATIVE)
--- NOTE | 2018-04-27 09:45 | NUR ---
PRN Reassess Ativan 2mg PO PRN effective,patient is less anxious,bilateral hand tremors decreased and patient states she feels better.
[2018-04-27] MEDS ORDERED: QUETIAPINE FUMARATE 25 MG TABLET PO PRN (10:00)
--- NOTE | 2018-04-27 10:28 | NUR ---
Therapist prompted client to attend group therapy.
[2018-04-27] MEDS ORDERED: CLONIDINE HCL 0.1 MG TABLET PO PRN (11:15)
[2018-04-27] MEDS ORDERED: SPIRONOLACTONE 25 MG TABLET PO SCH (11:15)
--- NOTE | 2018-04-27 11:35 | NUR ---
PRN Robaxin 750mg PO,baclofen 20mg PO and Motrin 600mg PO PRN given for muscle aches 11/18 900mg PO gabapentin that was scheduled for 1300 given per patient request as she usually takes it in the AM
[2018-04-27] MEDS: METHOCARBAMOL 750 MG TABLET PO PRN ×2 (11:36→20:28)
[2018-04-27] MEDS: GABAPENTIN 300 MG CAPSULE PO SCH ×2 (11:36→17:30)
[2018-04-27] MEDS: BACLOFEN 20 MG TABLET PO PRN ×2 (11:36→20:28)
[2018-04-27] MEDS: IBUPROFEN 600 MG TABLET PO PRN ×2 (11:36→22:08)
[2018-04-27] MEDS ORDERED: 6 DAY PHENOBARBITAL TAPER -SERENITY PROTOCOL PO PRN (12:15)
--- NOTE | 2018-04-27 12:35 | NUR ---
PRN Reassess Patient still complains of worsening withdrawal symptoms,she is agitated and irritable and states that the Robaxin,Baclofen and Motrin were not very effective and states she wants PRN Subkirkx [id number],will administer per protocol
[2018-04-27] MEDS: BUPRENORPHINE HCL 2 MG TAB.SUBL SL PRN ×2 (12:44→20:28)
--- NOTE | 2018-04-27 12:45 | NUR ---
PRN/ COWS 13 CIWA 13 PRN Subutex 4mg SL given for S/S withdrawal:runny nose,teary eyes,myalgias,increased anxiety,agitation and irritability
[2018-04-27] MEDS: SPIRONOLACTONE 25 MG TABLET PO SCH (13:00)
[2018-04-27] MEDS: PHENOBARBITAL 60 MG TABLET PO SCH ×4 (13:25→20:28)
--- NOTE | 2018-04-27 13:45 | NUR ---
Medication Held Scheduled Pheno 30mg PO held due to patients sedation level.
--- NOTE | 2018-04-27 13:45 | NUR ---
PRN Reassess Patient is asleep in bed,breathing even and unlabored,unable to assess medication effectiveness verbally but patient appears to be resting well.
--- NOTE | 2018-04-27 17:01 | NUR ---
COWS 13 CIWA 16 Patient presents with increased anxiety, diaphoresis, agitation, chills fine hand tremors, lethargy and restlessness Scheduled 30mg PO Pheno to be given and will also give Ativan 2mg per protocol for CIWA 16
--- NOTE | 2018-04-27 17:30 | NUR ---
PRN Ativan PRN Ativan 2mg PO given for s/s of withdrawal,patient is agitated,irritable,restless, lethargic. CIWA16
--- NOTE | 2018-04-27 18:30 | NUR ---
PRN Reassess Patient appears to be more relaxed and less anxious and states she feels less agitated, Ativan 2mg PO effective
--- NOTE | 2018-04-27 19:07 | NUR ---
End of Shift Patient is a 22yr old female who was admitted to [facility] this AM 04/27/18 for a medically supervised withdrawal from Benzodiazepines ( Xanax) and Opiates ( Heroin) , she has been placed on a 4 day Subutex taper to start tomorrow 04/28/18 and a 3 day Pheno taper which started today.PRN medications given on this shift : Ativan 2mg PO x2, Subutex 4mg SL, Robaxin, Baclofen and Motrin. S/S withdrawal: runny nose, teary eyes, Myalgias, Increased anxiety, lethargy ,agitation and irritability. She has not attended any groups today but has been going to the patio with her peers. She had a fluid intake of 1000 ML, 2 Voids and 0 BM, her last COWS was 13 and CIWA 16 @ 1700.Continue to follow MD plan of care and offer support and encouragement. Endorsed to shift superintendent.
--- NOTE | 2018-04-27 19:25 | NUR ---
START OF SHIFT Patient is a 22-year-old female admitted on 04/26/18 for benzodiazepine and opiate withdrawal. Patient has started a 3-day Phenobarbital taper today, tolerating well, and is scheduled to start a 4-day Subutex taper tomorrow. Patient's last COWS was 13 and last CIWA was 16 per endorsement. Patient received PRN Ativan 2mg x2 today along with PRN Motrin, PRN Baclofen, PRN Robaxin, and PRN Subutex 4mg. All PRN medications were noted to be effective. At change of shift patient had a behavioral incident with other clients regarding inappropriate conversations and was moved from room 317 to room 307. Upon assessment, patient denies any involvement in the situation with other clients and complained that she was "dragged in" and reprimanded. Patient complains of nausea and body aches at this time, visibly diaphoretic and agitated. Patient reports chills and sweats stating, "I feel like I want to run out of here." Patient is on fall and seizure precautions with no seizure history although patient states she is uncertain if she had a seizure on 02/10/18. Safety measures in place, side rails up x2, bed locked in low position, call light within reach. Will continue to monitor.
--- NOTE | 2018-04-27 20:00 | NUR ---
COWS 13, CIWA 18 Patient is extremely anxious and agitated, restless, diaphoretic, complaining of chills and sweats. Patient is noted to have fine tremors, nausea, elevated heart rate, and a runny nose. Patient denies emesis. Patient denies chest pain or SOB. Current COWS is 13 and CIWA is 18. SN to administer meds as ordered. Safety measures in place, side rails up x2, bed locked in low position, call light within reach.
[2018-04-27] MEDS: ONDANSETRON ODT 4 MG TAB.RAPDIS SL PRN (20:28)
--- NOTE | 2018-04-27 20:28 | NUR ---
PRN SUBUTEX, ROBAXIN, ZOFRAN, & BACLOFEN Patient reports nausea, body aches, restless legs, chills and sweats, anxiety and agitation. PRN Subutex 4mg given SL for COWS greater or equal to 12. PRN Zofran 4mg given SL, PRN Robaxin 750mg given PO, and PRN Baclofen 20mg given PO. Safety measures in place, call light within reach. Will monitor for effectiveness.
--- NOTE | 2018-04-27 20:58 | NUR ---
PRN SUBUTEX & ZOFRAN REASSESSMENT, COWS 12 Patient reports that nausea has improved slightly. PRN Zofran SL is noted to be mildly effective. Patient is slightly less anxious but continues to complain of signs and symptoms of withdrawal. Current COWS score at 30-minute reassessment is 12. Patient denies emesis at this time. Safety measures in place, side rails up x2, bed locked in low position, call light within reach. Will continue to monitor.
--- NOTE | 2018-04-27 21:28 | NUR ---
PRN ROBAXIN & BACLOFEN REASSESSMENT Patient reports that body aches, muscles spasms, and lower leg pain has not improved in her opinion. Patient verbalizes feeling that PRN Robaxin and PRN Baclofen are ineffective and specifically requests Toradol IM at this time. SN explained to patient that only the MD can make that decision, but acknowledged the patient's concern regarding pain management related to withdrawal. Safety measures in place, call light within reach. Will continue to monitor.
--- NOTE | 2018-04-27 22:08 | NUR ---
PRN MOTRIN Patient reports leg pain/aches that persists and request PRN Motrin. PRN Motrin 600mg given PO. Safety measures in place, side rails up x2, bed locked in low position, call light within reach. Will monitor for effectiveness.
[2018-04-27] MEDS: CLONIDINE HCL 0.1 MG TABLET PO PRN (22:15)
--- NOTE | 2018-04-27 22:15 | NUR ---
PRN ZOFRAN IM & CLONIDINE PO Patient reports an increase in intense nausea without emesis, patient verbalizes feeling extremely uncomfortable. Patient also complains of restlessness and agitation, chills and sweats. PRN Zofran given IM and PRN Clonidine 0.1mg given PO. Safety measures in place, side rails up x2, bed locked in low position, call light within reach. Will monitor for effectiveness.
--- NOTE | 2018-04-27 22:45 | NUR ---
PRN ZOFRAN IM REASSESSMENT Patient reports that nausea has subsided. PRN Zofran IM noted to be effective. Safety measures in place, call light within reach. Will continue to monitor.
--- NOTE | 2018-04-27 23:08 | NUR ---
PRN MOTRIN REASSESSMENT Patient reports leg pain/aches improved slightly, now 5/10 on pain scale. PRN Motrin noted to be mildly effective. Safety measures in place, call light within reach. Will continue to monitor.
--- NOTE | 2018-04-27 23:15 | NUR ---
PRN CLONIDINE REASSESSMENT Patient reports feeling less agitated and restless, patient reports some improvement in chills and sweats. PRN Clonidine noted to be effective. Safety measures in place, side rails up x2, bed locked in low position, call light within reach. Will continue to monitor.
[2018-04-28] VITALS: BP 96/58
--- NOTE | 2018-04-28 | NUR ---
COWS & CIWA DEFERRED COWS and CIWA deferred at this time due to patient sleeping; to be assessed and scored while patient is awake. Respirations even and unlabored. Safety measures in place, side rails up x2, bed locked in low position, call light within reach. Will continue to monitor.
[2018-04-28 04:00] VITALS: BP 112/66
--- NOTE | 2018-04-28 04:00 | NUR ---
COWS & CIWA DEFERRED COWS and CIWA deferred at this time due to patient sleeping; to be assessed while patient is awake. Respirations even and unlabored, 16/min. Safety measures in place, side rails up x2, bed locked in low position, call light within reach. Will continue to monitor.
--- NOTE | 2018-04-28 05:40 | NUR ---
COWS 11, CIWA 12 Patient is no longer nauseous, but complains of perfuse sweating, especially while sleeping. Patient reports chills and anxiety, agitation, restlessness, and general flu-like symptoms including body aches. Current COWS score is 11 and CIWA is 12. Safety measures in place, side rails up x2, bed locked in low position, call light within reach. Will continue to monitor.
[2018-04-28] MEDS: ONDANSETRON ODT 4 MG TAB.RAPDIS SL PRN ×2 (06:18→20:53)
--- NOTE | 2018-04-28 06:18 | NUR ---
COWS 13, PRN SUBUTEX & PRN ZOFRAN Patient reports nausea with no emesis. COWS score increased from 11 to 13. PRN Zofran 4mg SL given for nausea. PRN Subutex 4mg given SL for COWS greater or equal to 12. Safety measures in place, side rails up x2, bed locked in low position, call light within reach. Will monitor for effectiveness.
[2018-04-28] MEDS: BUPRENORPHINE HCL 2 MG TAB.SUBL SL PRN (06:19)
--- NOTE | 2018-04-28 06:48 | NUR ---
PRN SUBUTEX & ZOFRAN REASSESSMENT Upon reassessment, patient is observed sleeping in bed with eyes closed, respirations even and unlabored. Unable to reassess medication effectiveness at this time, unable to assess COWS at this time. Safety measures in place, side rails up x2, bed locked in low position, call light within reach. Will continue to monitor.
--- NOTE | 2018-04-28 07:30 | NUR ---
END OF SHIFT Patient is a 22-year-old female admitted on 04/26/18 for benzodiazepine and opiate withdrawal. Patient started a 4-day Phenobarbital taper yesterday, tolerating well, and is scheduled to start a 4-day Subutex taper today. Patient's last COWS was 13 and last CIWA was 12. Patient received the following PRN medications during the shift: Zofran 4mg SL x2, Zofran 4mg IM, Subutex 4mg x2, Baclofen 20mg, Robaxin 750mg, Motrin 600mg, Clonidine 0.1mg. PRN medications were somewhat effective, per patient. Patient slept for 7 hours, total intake of 1,230mL, void x1, stool x1. Patient is on fall and seizure precautions with no seizure history although patient states she is uncertain if she had a seizure on 02/10/18. Safety measures in place, side rails up x2, bed locked in low position, call light within reach. Will endorse to day shift.
--- NOTE | 2018-04-28 07:45 | NUR ---
START OF SHIFT Endorse rcvd from ongoing nurse, client is in hallway, she is a/o x 4, she presents with flushed facial face, red, watery eyes, nasal congestion, goosebump, clammy skin, anxious mood, and difficulty concentrating. Client reports agitation, anxiety, depression, tremors, poor appetite, chills/colds, sweats, generalized body aches, abdominal cramps, nausea, and pins and needle feeling on lower extremities. Encourage client to attend group therapy to learn skills to maintain sober. Client requests to go out to the [facility], she is fully ambulatory. Last [facility] 13 @ 3062. PRN Zofran 4mf SL x 2, Zofran 4mg IM, for nausea, Subutex 4mg SL x 2, Baclofen 20mg PO for muscle spams, Robaxin 750mg PO for myalgia, Motrin 600mg PO for body aches, Clonidine 0.1mg PO for anxiety and agitation. Client slept 7 hrs.Seizure precautions. Will continue to monitor.
[2018-04-28 08:06] VITALS: BP 117/74
[2018-04-28] MEDS ORDERED: 4 DAY TAPER BUPRENORPHINE -SERENITY PROTOCOL SL PRN (09:00)
[2018-04-28] MEDS ORDERED: TUBERCULIN,PURIF.PROT.DERIV. 5 TU/0.1 ML TEST ID ONE (09:00)
[2018-04-28] MEDS: GABAPENTIN 300 MG CAPSULE PO SCH ×3 (09:53→21:03)
--- NOTE | 2018-04-28 09:53 | NUR ---
CIWA 15 / COWS 15 Client is in room, she is a/o x 4, she presents with anxious mood, flat affect, flushed facial skin, enlarged pupils, and difficulty concentrating. Client reports agitation, anxiety, chills/colds, clammy skin, emotional volatility, generalized body aches, nausea, runny nose, yawning, sweating. Schedule Phenobarbital 30mg PO, Subutex 4mg SL administered. Encourage client to increase PO fluid as tolerated to facilitate detox. Will continue to monitor. Call light within reach.
[2018-04-28] MEDS: PHENOBARBITAL 60 MG TABLET PO SCH ×3 (09:54→21:03)
[2018-04-28] MEDS: BUPRENORPHINE HCL 2 MG TAB.SUBL SL SCH ×3 (09:54→21:04)
[2018-04-28] MEDS: SPIRONOLACTONE 25 MG TABLET PO SCH (09:54)
--- NOTE | 2018-04-28 09:54 | NUR ---
Client declined PPD test, she denies night sweats, chest pain, or cough. MD notified. NNO at this time.
[2018-04-28 12:00] VITALS: BP 108/71
--- NOTE | 2018-04-28 12:00 | NUR ---
WA / 12 Client is in room, she presents with anxious mood, flat affect, agitation, difficulty concentrating, yawning, runny nose, and watery eyes. Non-pharmacologic measures rendered. Call light within reach.
--- NOTE | 2018-04-28 13:58 | NUR ---
Therapist prompted client to attend all group therapy sessions.
--- NOTE | 2018-04-28 15:20 | NUR ---
CIWA 15 / COWS 15 Client is in room, she presents with anxious mood, flat affect, agitation, flushed facial skin, difficulty concentrating, yawning, runny nose, and watery eyes. Schedule Subutex 4mg SL, Phenobarbital 30mg PO administered. Call light within reach.
[2018-04-28 16:39] VITALS: BP 123/76
--- NOTE | 2018-04-28 19:38 | NUR ---
END OF SHIFT Endorse client to incoming nurse, client is in room, a/o x 4. Client continues to present with anxious mood, flat affect, agitation, flushed facial skin, difficulty concentrating, yawning, runny nose, and watery eyes. Client is on 2nd of 4 day Phenobarbital / 4 day Subutex taper. Last CIWA 15 / COWS 15 @ 1520. Client does not attend group therapy, but is compliant with medication taper medication. Client consumed 50% of meals. Adequate PO fluid intake 1850mL, void x 6, stool x 1. [place] precautions. Call light within reach.
--- NOTE | 2018-04-28 19:40 | NUR ---
START OF SHIFT Patient is a 22-year-old female admitted on 04/26/18 for benzodiazepine and opiate withdrawal. Patient is on a 4-day Phenobarbital taper, tolerating moderately well, taper scheduled to complete on 04/30/18. Patient has started a 4-day Subutex taper today, tolerating moderately well. Patient received no PRN medications today, per endorsement. Last COWS was 15, last CIWA was 15. Upon assessment, patient asked SN about current ordered taper and verbalized that she spoke with the MD and the day shift charge nurse regarding a change in taper. Patient was asking if any changes had been made. Patient is very concerned and upset that she is unable to take the medications that she feels will help her detox. Patient reports feeling dope sick and extremely uncomfortable. Patient states, Im in so much fucking pain. Patient is irritable and not cooperative at this time. Patient is on fall and seizure precautions as patient has explicitly expressed to SN that she does have positive seizure history, last seizure may have been on 02/10/18 but patient is unsure. Safety measures in place, side rails up x2, bed locked in low position, call light within reach. Will continue to monitor.
[2018-04-28 20:00] VITALS: BP 118/78
--- NOTE | 2018-04-28 20:00 | NUR ---
COWS 16, CIWA 16 Patient is anxious, agitated, irritable, and nauseous. Patient has an elevated pulse, complains of body aches and chills and sweats. Patient has a runny nose and is visibly flushed. Current COWS 16 and CIWA 16. SN to administer medications as ordered. Safety measures in place, call light within reach. Will continue to monitor.
--- NOTE | 2018-04-28 20:30 | NUR ---
MD COMMUNICATION Patient has become upset due to the fact that Dr. Perez did not change her taper despite her request. Patient verbalized wanting to leave against medical advice stating, "I could go home and feel better. Why won't the doctor give me a taper that will work for me? Seriously I feel so sick, he just wants me to suffer." Primary nurse and charge nurse explained to patient regarding medications ordered by MD and that the taper would not be changed. Dr. Perez was notified and was made aware of the situation.
--- NOTE | 2018-04-28 20:45 | NUR ---
PATIENT SEEN BY LICENSED THERAPIST Mayuri, licensed therapist, spoke with patient regarding her decision to leave against medical advice. Mayuri was able to use therapeutic communication with the patient in order to help the patient think rationally about reasons for leaving AMA.
--- NOTE | 2018-04-28 20:53 | NUR ---
PRN ZOFRAN SL Patient reports nausea with no emesis. PRN Zofran 4mg given SL. Safety measures in place, call light within reach. Will monitor for effectiveness.
[2018-04-28] MEDS: METHOCARBAMOL 750 MG TABLET PO PRN (21:04)
--- NOTE | 2018-04-28 21:04 | NUR ---
PRN ROBAXIN Patient reports generalized body aches 7/10 on pain scale. PRN Robaxin 750mg given PO. Safety measures in place, call light within reach. Will monitor for effectiveness.
--- NOTE | 2018-04-28 21:23 | NUR ---
PRN ZOFRAN REASSESSMENT Patient reports some improvement in nausea, but that it has not subsided. PRN Zofran noted to be somewhat effective. Safety measures in place, side rails up x2, bed locked in low position, call light within reach. Will continue to monitor.
--- NOTE | 2018-04-28 22:04 | NUR ---
PRN ROBAXIN Patient reports generalized body aches have improved, 4/10 on pain scale. PRN Robaxin noted to be effective. Safety measures in place, side rails up x2, bed locked in low position, call light within reach. Will continue to monitor. Addendum: 04/29/18 at 0353 by MADELINE THURMAN LVN REASSESSMENT
--- NOTE | 2018-04-29 | NUR ---
VITALS REFUSED, COWS & CIWA DEFERRED Patient refused midnight vitals. Respirations even and unlabored, 16/min. COWS and CIWA deferred due to patient sleeping. Safety measures in place, side rails up x2, bed locked in low position, call light within reach. Will continue to monitor.
--- NOTE | 2018-04-29 04:00 | NUR ---
VITALS REFUSED, COWS & CIWA DEFERRED Vitals refused at this time, respirations even and unlabored. COWS and CIWA deferred due to patient sleeping. Safety measures in place, side rails up x2, bed locked in low position, call light within reach. Will continue to monitor.
--- NOTE | 2018-04-29 07:20 | NUR ---
END OF SHIFT Patient is a 22-year-old female admitted on 04/26/18 for benzodiazepine and opiate withdrawal. Patient is on a 4-day Phenobarbital taper, tolerating moderately well, scheduled to complete taper on 04/30/18. Patient started a 4-day Subutex taper yesterday, tolerating moderately well. Last COWS was 16 and last CIWA was 16. Patient received PRN Zofran and PRN Robaxin, both noted to be effective. Patient expressed a strong desire to leave against medical advice but changed her mind after speaking with Mayuri, the licensed therapist, and after considering the pros and cons of leaving. Patient slept for 8 hours, total intake of 1,715mL, void x4, stool x0. Patient is on fall and seizure precautions and reports that she does have positive seizure history, most recent seizure was possibly on 02/10/18 but patient is uncertain. Safety measures in place, side rails up x2, bed locked in low position, call light within reach. Will endorse to day shift.
--- NOTE | 2018-04-29 07:30 | NUR ---
Start of shift note: received pt from film processing shift supervisor nurse, pt is in stable condition at this time, pt is awake and wanting to smoke already, pt is admitted for opiate/benzo withdrawal and dependence, pt is an AMA D/T not being happy and satisfied with her taper. pt is requesting valium taper per film processing shift supervisor nurse. last documented cows 16 and ciwa 16 and slept for 8 hrs. will address pt's concerns and careplan with MD in regards to pt's wishes.
[2018-04-29 09:00] VITALS: BP 106/75
[2018-04-29] MEDS ORDERED: LORAZEPAM 2 MG/1 ML VIAL IM PRN (09:00)
[2018-04-29] MEDS ORDERED: BUPRENORPHINE HCL 2 MG TAB.SUBL SL SCH ×2 (09:00→15:00)
[2018-04-29] MEDS ORDERED: PHENOBARBITAL 60 MG TABLET PO SCH (09:00)
--- NOTE | 2018-04-29 09:00 | NUR ---
cows/ciwa: 13 and 12 pt is extremely agitated and anxious, pt noted restless with piloerection of hairs. heart rate is slightly elevated.
[2018-04-29] MEDS: CLONIDINE HCL 0.1 MG TABLET PO PRN (09:52)
[2018-04-29] MEDS: GABAPENTIN 300 MG CAPSULE PO SCH ×2 (09:52→14:26)
[2018-04-29] MEDS: SPIRONOLACTONE 25 MG TABLET PO SCH (09:58)
--- NOTE | 2018-04-29 11:02 | NUR ---
Therapist prompted client to attend group therapy.
[2018-04-29 12:49] VITALS: BP 121/76
--- NOTE | 2018-04-29 13:00 | NUR ---
cows and ciwa: 13 and 12 pt is extremely agitated and upset with the MD wants a Valium or Ativan taper, pt with complaints of heartburn and stomach discomfort. pt is restless and complains of sweat
--- NOTE | 2018-04-29 14:29 | NUR ---
PRN administration: pt with complaints of heartburn, PRN maalox was administered. will re-assess effectiveness of medication
[2018-04-29 15:07] LABS: HEPATITIS B SURFACE AG Negative (Negative)
--- NOTE | 2018-04-29 15:30 | NUR ---
PRN re-assessment: pt verbalized maalox is effective, heartburn has diminished
--- NOTE | 2018-04-29 16:18 | NUR ---
AMA note: pt verbalized I'm not getting my valium or ativan taper i might as well leave, she verbalized " I was never planning to come off my Klonopin anyways". i just want to get home. explained risk and benefits x3 and pt verbalized she understood all personal belongings were returned and pt verbalized understanding.
[2018-04-30] MEDS ORDERED: PHENOBARBITAL 60 MG TABLET PO SCH (09:00)
[2018-04-30] MEDS ORDERED: BUPRENORPHINE HCL 2 MG TAB.SUBL SL SCH (09:00)
[2018-05-01] MEDS ORDERED: BUPRENORPHINE HCL 2 MG TAB.SUBL SL SCH (09:00)
[2018-05-01] MEDS ORDERED: PHENOBARBITAL 60 MG TABLET PO SCH (09:00)
== END 2018-04-29 16:02 | disposition left against medical advice (07) | DRG 894 ==
LOC: SRC 04-27 00:02
PROVIDERS: ADMIT Family Medicine Addiction Medicine; ATTEND Internal Medicine Addiction Medicine
PROC: HZ2ZZZZ Detoxification Services for Substance Abuse Treatment (ICD-10-PCS; principal; 2018-04-27)
PROC: HZ41ZZZ Group Counseling for Substance Abuse Treatment, Behavioral (ICD-10-PCS; 2018-04-28)
PROC: HZ31ZZZ Individual Counseling for Substance Abuse Treatment, Behavioral (ICD-10-PCS; 2018-04-29)
DX: F11.23 Opioid dependence with withdrawal (principal); F41.9 Anxiety disorder, unspecified; F17.210 Nicotine dependence, cigarettes, uncomplicated; Z81.1 Family history of alcohol abuse and dependence; Z91.5 Personal history of self-harm; F13.239 Sedative, hypnotic or anxiolytic dependence with withdrawal, unspecified; F32.9 Major depressive disorder, single episode, unspecified; F15.10 Other stimulant abuse, uncomplicated
CPT/HCPCS: 36415; 70030-TC; 80307; 80346; 80361; 83690; 83735; 84443; 84703; 85025; 86592; 86705; 86803; 87340; 87491; 87806; G0480; J2405; J8499; Q0162